=== PATIENT | female | born 1960 | race Two or more races ===

== ENCOUNTER 2022-03-24 17:00 | Inpatient (IN) | payer BC, OTHER ==
[~2022-03-24] VITALS: Ht 165.1 cm; Wt 88.3 kg
[2022-03-24 18:18] LABS: Basophils # (auto) 0.1 10 ^3/uL (0-0.2); Basophils % (auto) 0.9 % (0.0-2.0); Eosinophils # (auto) 0.1 10 ^3/uL (0-0.8); Eosinophils % (auto) 1.7 % (0.0-7.0); Hematocrit 44.5 % (36.0-46.0); Hemoglobin 14.8 g/dL (12.2-16.2); Lymphocytes # (auto) 1.9 10 ^3/uL (0.4-5.4); Lymphocytes % (auto) 26.2 % (10.0-50.0); Mean Corpuscular Hemoglobin 33.6 pg (28.0-32.0); Mean Corpuscular Hgb Conc. 33.4 g/dL (32.0-36.0); Mean Corpuscular Volume 100.6 fL (80.0-100.0); Monocytes # (auto) 0.7 10 ^3/uL (0-1.3); Monocytes % (auto) 10.5 % (0.0-12.0); Neutrophils # (auto) 4.3 10 ^3/uL (1.6-8.6); Neutrophils % (auto) 60.7 % (37.0-80.0); Nucleated Red Blood Cells % 0.1 %; Red Blood Cells 4.42 10^6/uL (4.0-5.20); Red Cell Distribution Width 14.4 % (11.8-14.3); White Blood Cell 7.1 10^3/uL (4.4-10.8)
[2022-03-24 18:31] LABS: Albumin 3.6 g/dL (3.4-5.0); Calcium 9.2 mg/dL (8.5-10.1); Potassium 3.7 mmol/L (3.5-5.1)
[2022-03-24 18:33] LABS: BUN/Creatinine Ratio 16.9
[2022-03-24 18:36] LABS: Bilirubin, Total 0.4 mg/dL (0.2-1.0); Total Protein 7.2 g/dL (6.4-8.2)
[2022-03-24 19:03] LABS: INR 6.8 (0.9-1.15)
[2022-03-24] MEDS ORDERED: phytonadione 10 MG in SODIUM CHL 0.9% 50 ML IV ONE (19:15)
[2022-03-24] MEDS ORDERED: ONDANSETRON HCL 4 MG/2 ML VIAL IV PRN (21:00)
[2022-03-24] MEDS ORDERED: ALBUTEROL SULF 2.5 MG/0.5ML(0.5%) NEB SOLN NEB PRN (21:00)
[2022-03-24] MEDS ORDERED: TEMAZEPAM 15 MG CAP PO PRN (21:00)
[2022-03-24 23:14] VITALS: BP 134/67
[2022-03-25] MEDS ORDERED: phytonadione 1 ML ONE (00:55)
[2022-03-25] MEDS: ACETAMINOPHEN 325 MG TAB PO PRN ×2 (01:06→09:20)
[2022-03-25 06:07] LABS: Basophils # (auto) 0.1 10 ^3/uL (0-0.2); Basophils % (auto) 1.1 % (0.0-2.0); Eosinophils # (auto) 0.2 10 ^3/uL (0-0.8); Eosinophils % (auto) 2.4 % (0.0-7.0); Hematocrit 46.2 % (36.0-46.0); Hemoglobin 15.1 g/dL (12.2-16.2); Lymphocytes # (auto) 2.8 10 ^3/uL (0.4-5.4); Lymphocytes % (auto) 34.7 % (10.0-50.0); Mean Corpuscular Hemoglobin 33.2 pg (28.0-32.0); Mean Corpuscular Hgb Conc. 32.8 g/dL (32.0-36.0); Mean Corpuscular Volume 101.1 fL (80.0-100.0); Monocytes % (auto) 12.6 % (0.0-12.0); Neutrophils # (auto) 3.9 10 ^3/uL (1.6-8.6); Neutrophils % (auto) 49.2 % (37.0-80.0); Nucleated Red Blood Cells % 0.1 %; Red Blood Cells 4.57 10^6/uL (4.0-5.20); Red Cell Distribution Width 14.4 % (11.8-14.3); White Blood Cell 7.9 10^3/uL (4.4-10.8)
[2022-03-25 06:24] LABS: INR 2.12 (0.9-1.15); Partial Thromboplastin Time 39.2 sec (24.6-33.4)
[2022-03-25 06:28] LABS: Calcium 9.2 mg/dL (8.5-10.1); Potassium 3.4 mmol/L (3.5-5.1)
[2022-03-25 06:29] LABS: BUN/Creatinine Ratio 19.6
[2022-03-25] MEDS ORDERED: HYDROcodone-ACET 5/325MG TAB PO PRN ×2 (06:30→07:15)
[2022-03-25] MEDS ORDERED: PANTOPRAZOLE 40 MG TAB PO SCH (10:00)
[2022-03-25] MEDS ORDERED: amLODIPine BESYLATE 5 MG TAB PO SCH (10:00)
[2022-03-25] MEDS ORDERED: HCTZ 25 MG TAB PO SCH (10:00)
[2022-03-25 11:41] VITALS: BP 135/72
== END 2022-03-25 13:03 | disposition home or self-care (01) | DRG 948 ==
LOC: EDBD 17:00 → ER 17:00 → OVERFLOW 20:55
PROVIDERS: ADMIT Nurse Practitioner; ATTEND Family Medicine
DX: R79.9 Abnormal finding of blood chemistry, unspecified (principal); T45.515A Adverse effect of anticoagulants, initial encounter; I10 Essential (primary) hypertension; Z86.711 Personal history of pulmonary embolism; Z79.01 Long term (current) use of anticoagulants; Y92.89 Other specified places as the place of occurrence of the external cause; Z20.822 Contact with and (suspected) exposure to COVID-19
CPT/HCPCS: 36415; 80048; 80053; 85025; 85610; 85730; 87426; G0378; J3430

== ENCOUNTER 2023-12-24 08:21 | Inpatient (IN) | payer BC ==
[~2023-12-24] VITALS: Ht 165.1 cm; Wt 95.9 kg
[2023-12-24 08:55] VITALS: PULSE 79; RESP 20; O2SAT 95
[2023-12-24] MEDS: KETOROLAC TROMETH 30 MG/ML 1ML VIAL IV ONE (10:35)
[2023-12-24] MEDS: SODIUM CHLORIDE 0.9% 500 ML IVB ONE (10:36)
[2023-12-24] MEDS: METOCLOPRAMIDE HCL 5MG/ml INJ 2ml VIAL IV ONE (10:36)
[2023-12-24 11:10] LABS: Basophils # (auto) 0.1 10 ^3/uL (0-0.2); Basophils % (auto) 1.2 % (0.0-2.0); Eosinophils # (auto) 0.2 10 ^3/uL (0-0.8); Eosinophils % (auto) 5.2 % (0.0-7.0); Hematocrit 42.2 % (36.0-46.0); Hemoglobin 14.1 g/dL (12.2-16.2); Lymphocytes # (auto) 0.8 10 ^3/uL (0.4-5.4); Lymphocytes % (auto) 17.8 % (10.0-50.0); Mean Corpuscular Hemoglobin 33.2 pg (28.0-32.0); Mean Corpuscular Hgb Conc. 33.4 g/dL (32.0-36.0); Mean Corpuscular Volume 99.6 fL (80.0-100.0); Monocytes # (auto) 0.4 10 ^3/uL (0-1.3); Monocytes % (auto) 9.2 % (0.0-12.0); Neutrophils # (auto) 3.1 10 ^3/uL (1.6-8.6); Neutrophils % (auto) 66.6 % (37.0-80.0); Nucleated Red Blood Cells % 0.1 %; Platelet Count (auto) 209 10^3/uL (140-450); Red Blood Cells 4.24 10^6/uL (4.0-5.20); White Blood Cell 4.7 10^3/uL (4.4-10.8)
[2023-12-24 11:18] LABS: Urine Bacteria None Seen /hpf (None Seen)
[2023-12-24] MEDS: SODIUM CHLORIDE 0.9% 1,000 ML IV ONE (11:20)
[2023-12-24 11:24] LABS: Alanine Aminotransferase 15 U/L (7-40); Albumin 4.1 g/dL (3.2-4.8); Alkaline Phosphatase 72 U/L (46-116); Anion Gap 6 (5-15); Aspartate Aminotransferase 16 U/L (13-40); BUN/Creatinine Ratio 10.2 (10.0-20.0); Bilirubin, Total 0.6 mg/dL (0.2-1.0); Blood Urea Nitrogen 11 mg/dL (9-23); Calcium 10.1 mg/dL (8.7-10.4); Carbon Dioxide 30 mmol/L (20-31); Chloride 103 mmol/L (98-107); Glucose 112 mg/dL (74-106); Magnesium 1.8 mg/dL (1.6-2.6); Potassium 3.6 mmol/L (3.5-5.1); Sodium 139 mmol/L (136-145); Total Protein 7.1 g/dL (5.7-8.2)
[2023-12-24 11:39] LABS: Urine Blood Negative /uL (Negative); Urine Clarity Clear (Clear); Urine Color Yellow (Yellow); Urine Hyaline Cast FEW /lpf (0 - 2); Urine Mucus FEW (None Seen); Urine Protein, UAD 1+ (Negative); Urine Specific Gravity 1.034 (1.001-1.035); Urine Urobilinogen Normal (Negative); Urine WBC 1 /hpf (0 - 5); Urine pH 5.5 (5.0-9.0)
[2023-12-24] MEDS ORDERED: DICL50TA2 PO (12:44)
[2023-12-24] MEDS ORDERED: METO-281 PO (12:44)
[2023-12-24] MEDS: methylPREDNISolone SOD SUCC 125 MG/2 ML VL IV ONE (13:23)
[2023-12-24] MEDS: ALBUTEROL SULF 2.5 MG/0.5ML(0.5%) NEB SOLN NEB ONE (13:28)
[2023-12-24] MEDS: IPRATROPIUM BROM 0.5 MG/2.5ML INH SOL NEB ONE (13:28)
[2023-12-24] MEDS ORDERED: NITROGLYCERIN 0.4 MG SL TAB SL PRN (15:15)
[2023-12-24] MEDS ORDERED: DOCUSATE SOD 100 MG CAP PO PRN (15:15)
[2023-12-24] MEDS ORDERED: MORPHINE SULFATE INJ 2 MG/ml SYRG IV PRN (15:15)
[2023-12-24] MEDS ORDERED: ACETAMINOPHEN 325 MG TAB PO PRN (15:15)
[2023-12-24] MEDS ORDERED: ONDANSETRON HCL 4 MG/2 ML VIAL IV PRN (15:15)
[2023-12-24] MEDS ORDERED: FLUO-470 PO (15:23)
[2023-12-24] MEDS ORDERED: ALBU108A5 INH (15:23)
[2023-12-24] MEDS ORDERED: HYDR25TA5 PO (15:23)
[2023-12-24] MEDS ORDERED: RIVA10TA2 PO (15:23)
[2023-12-24] MEDS ORDERED: AMLO1TAB22 PO (15:23)
[2023-12-24] MEDS ORDERED: QUET300T24 PO ×3 (15:23→16:14)
[2023-12-24 15:25] VITALS: BP 123/74; PULSE 81; RESP 20; TEMP 97.7; O2SAT 91
[2023-12-24 18:06] VITALS: BP 138/58; PULSE 96; RESP 19; TEMP 98.2; O2SAT 87
[2023-12-24] MEDS ORDERED: FLUT110A8 IN (18:11)
[2023-12-24 20:00] VITALS: PULSE 95; RESP 18; O2SAT 96
[2023-12-24 21:00] VITALS: BP 126/72; PULSE 95; RESP 18; TEMP 98.1; O2SAT 96
[2023-12-24] MEDS: QUEtiapine FUMARATE 100 MG TAB PO SCH (21:55)
[2023-12-24] MEDS: methylPREDNISolone SOD SUCC 40 MG/ML VL IV SCH (22:00)
[2023-12-24] MEDS ORDERED: QUEtiapine FUMARATE 100 MG TAB PO ONE (22:00)
[2023-12-24] MEDS: HYDROcodone-ACET 5/325MG TAB PO PRN (22:01)
[2023-12-24] MEDS: SODIUM CHLOR 0.9% PF (SALINE LOCK) 10ML VIAL/SYR IV SCH (22:01)
[2023-12-24 22:48] VITALS: O2SAT 98
[2023-12-25] VITALS (11 sets, daily range): BP systolic 118–136; BP diastolic 63–77; PULSE 87–105; RESP 17–20; TEMP 97.8–98.4; O2SAT 88–98
[2023-12-25 06:02] LABS: Basophils # (auto) 0 10 ^3/uL (0-0.2); Basophils % (auto) 0.1 % (0.0-2.0); Eosinophils # (auto) 0 10 ^3/uL (0-0.8); Hematocrit 41.5 % (36.0-46.0); Hemoglobin 13.8 g/dL (12.2-16.2); Lymphocytes # (auto) 0.4 10 ^3/uL (0.4-5.4); Lymphocytes % (auto) 6.3 % (10.0-50.0); Mean Corpuscular Hemoglobin 33.1 pg (28.0-32.0); Mean Corpuscular Hgb Conc. 33.2 g/dL (32.0-36.0); Mean Corpuscular Volume 99.6 fL (80.0-100.0); Monocytes # (auto) 0.1 10 ^3/uL (0-1.3); Monocytes % (auto) 1.1 % (0.0-12.0); Neutrophils # (auto) 5.4 10 ^3/uL (1.6-8.6); Neutrophils % (auto) 92.5 % (37.0-80.0); Nucleated Red Blood Cells % 0.1 %; Platelet Count (auto) 206 10^3/uL (140-450); Red Blood Cells 4.17 10^6/uL (4.0-5.20); Red Cell Distribution Width 13.6 % (11.8-14.3); White Blood Cell 5.9 10^3/uL (4.4-10.8)
[2023-12-25] MEDS: FLUoxetine HCL 20 MG CAP PO SCH (06:06)
[2023-12-25 06:25] LABS: Alanine Aminotransferase 11 U/L (7-40); Alkaline Phosphatase 67 U/L (46-116); Anion Gap 7 (5-15); Aspartate Aminotransferase 11 U/L (13-40); BUN/Creatinine Ratio 18.6 (10.0-20.0); Bilirubin, Total 0.5 mg/dL (0.2-1.0); Blood Urea Nitrogen 19 mg/dL (9-23); Calcium 9.7 mg/dL (8.7-10.4); Carbon Dioxide 28 mmol/L (20-31); Chloride 104 mmol/L (98-107); Glucose 143 mg/dL (74-106); Potassium 4.1 mmol/L (3.5-5.1); Sodium 139 mmol/L (136-145); Total Protein 6.8 g/dL (5.7-8.2)
[2023-12-25] MEDS: QUEtiapine FUMARATE 100 MG TAB PO SCH (10:00)
[2023-12-25] MEDS: hydroCHLOROthiazide 25 MG TAB PO SCH (10:17)
[2023-12-25] MEDS: amLODIPine BESYLATE 5 MG TAB PO SCH (10:17)
[2023-12-25] MEDS: FAMOTIDINE 20 MG TAB PO ONE (16:11)
[2023-12-25] MEDS: ALBUTEROL SULF 2.5 MG/0.5ML(0.5%) NEB SOLN NEB PRN (20:26)
[2023-12-25] MEDS: IPRATROPIUM BROM 0.5 MG/2.5ML INH SOL NEB PRN (20:26)
[2023-12-25] MEDS: MONTELUKAST SODIUM 10 MG TAB PO SCH (21:12)
[2023-12-25] MEDS: ENOXAPARIN SOD 100 MG/1 ML SYRINGE SC SCH (21:14)
[2023-12-26] VITALS (9 sets, daily range): BP systolic 122–137; BP diastolic 66–84; PULSE 88–101; RESP 16–20; TEMP 97.8–98.2; O2SAT 90–100
[2023-12-26] MEDS: predniSONE 20 MG TAB PO SCH (09:51)
[2023-12-26] MEDS: FAMOTIDINE 20 MG TAB PO SCH (09:51)
[2023-12-26] MEDS ORDERED: MONT10TA23 PO (13:13)
[2023-12-26] MEDS ORDERED: FLUT50SP (13:13)
[2023-12-26] MEDS ORDERED: PRED20TA2 PO (13:13)
[2023-12-26] MEDS ORDERED: FAMO-12 PO (13:13)
[2023-12-26] MEDS ORDERED: MOME1AER8 INH (13:13)
== END 2023-12-26 16:10 | disposition home or self-care (01) | DRG 202 ==
LOC: ER 08:21 → OVERFLOW 15:14 → EAST 17:47
PROVIDERS: ADMIT Nurse Practitioner Family; ATTEND Student in an Organized Health Care Education/Training Program
DX: J45.41 Moderate persistent asthma with (acute) exacerbation (principal); N17.9 Acute kidney failure, unspecified; F32.A Depression, unspecified; I10 Essential (primary) hypertension; K21.9 Gastro-esophageal reflux disease without esophagitis; G43.909 Migraine, unspecified, not intractable, without status migrainosus; I95.9 Hypotension, unspecified; Z86.711 Personal history of pulmonary embolism; Z79.899 Other long term (current) drug therapy
CPT/HCPCS: 36415; 70450; 71046; 80053; 81001; 83735; 85025; 93005; 94640; G0378; J1885

== ENCOUNTER 2024-01-24 14:40 | Inpatient (IN) | payer BC, MEDICARE ==
[~2024-01-24] VITALS: Ht 165.1 cm; Wt 91.5 kg
[2024-01-24] VITALS (7 sets, daily range): BP systolic 111–117; BP diastolic 68–75; PULSE 85–95; RESP 14–23; O2SAT 90–100
[~2024-01-24 14:40] MED LIST: AMLO1TAB22 PO; FAMO-12 PO; FLUT50SP; HYDR25TA5 PO; MOME1AER8 INH; MONT10TA23 PO; PRED20TA2 PO; QUET300T24 PO
--- NOTE | 2024-01-24 14:58 | ED.PDOC ---
SOB-HPI HPI Comments 64-year-old female with PMHx Asthma brought in by EMS presents with a chief complaint of SOB. Patient was sating at 87% on room air and was placed on 20L via non-rebreather by EMS. Patient denies any wheezing, coughing, or hemoptysis. Patient is able to speak in full, complete sentences. Patient denies chest pain, nausea, vomiting, diarrhea, or headache. No other symptoms or modifying factors present at this time. 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 Family History Family History: Reviewed,noncontributory to illness, Unknown Social History Smoker: Non-Smoker Alcohol: Denies ETOH Use Drugs: Denies Drug Use Lives In: Home Constitutional: denies: chills, diaphoresis, fatigue, fever, malaise, sweats, weakness, others EENTM: denies: blurred vision, double vision, ear bleeding, ear discharge, ear drainage, ear pain, ear ringing, eye pain, eye redness, hearing loss, mouth pain, mouth swelling, nasal discharge, nose bleeding, nose congestion, nose pain, photophobia, tearing, throat pain, throat swelling, voice changes, others Respiratory: reports: SOB at rest, shortness of breath; denies: cough, hemoptysis, orthopnea, SOB with excertion, stridor, wheezing, others Cardiovascular: denies: chest pain, dizzy spells, diaphoresis, Dyspnea on exertion, edema, irregular heart beat, left arm pain, lightheadedness, palpitations, PND, syncope, others Gastrointestinal: denies: abdomen distended, abdominal pain, blood streaked bowels, constipated, diarrhea, dysphagia, difficulty swallowing, hematemesis, melena, nausea, poor appetite, poor fluid intake, rectal bleeding, rectal pain, vomiting, others Genitourinary: denies: abnormal vagina bleeding, burning, dyspareunia, dysuria, flank pain, frequency, hematuria, incontinence, pain, , vagina discharge, urgency, others Neurological: denies: dizziness, fainting, headache, left sided numbness, left sided weakness, numbness, paresthesia, pre-existing deficit, right sided numbness, right sided weakness, seizure, speech problems, tingling, tremors, weakness, others Musculoskeletal: denies: back pain, gout, joint pain, joint swelling, muscle pain, muscle stiffness, neck pain, others Integumetry: denies: bruises, change in color, change in hair/nails, dryness, laceration, lesions, lumps, rash, wounds, others Allergic/Immunocompromised: denies: Difficulty Healing, Frequent Infections, H tanika, Itching, others Hematologic/Lymphatic: denies: anemia, blood clots, easy bleeding, easy bruising, swollen glands, others Endocrine: denies: excessive hunger, excessive sweating, excessive thirst, excessive urination, flushing, intolerance to cold, intolerance to heat, unexplained weight gain, unexplained weight loss, others Psychiatric: denies: anxiety, bipolar disorder, depression, hopeless, panic disorder, schizophrenia, sleepless, suicidal, others All Other Systems: Reviewed and Negative Physical Exam General Appearance: No Apparent Distress, Normal HEENT: Normal ENT Inspection, Pharynx Normal, TMs Normal Neck: Full Range of Motion, Non-Tender, Normal, Normal Inspection Respiratory: Chest Non-Tender, Lungs Clear, No Accessory Muscle Use, No Respiratory Distress, Normal Breath Sounds Cardiovascular: No Edema, No JVD, No Murmur, No Gallop, Normal Peripheral Pulses, Regular Rate/Rhythm Breast Exam: Deferred Gastrointestinal: No Organomegaly, Non Tender, No Pulsatile Mass, Normal Bowel Sounds, Soft Genitalia: Deferred Pelvic: Deferred Rectal: Deferred Extremities: No calf tenderness, Normal capillary refill, Normal inspection, Normal range of motion, Non-tender, No pedal edema Musculoskeletal : Apperance: Normal Neurologic: Alert, chair mender II-XII nml as Tested, No Motor Deficits, Normal Affect, Normal Mood, No Sensory Deficits Cerebellar Function: Normal Reflexes: Normal Skin: Dry, Normal Color, Warm Lymphatic: No Adenopathy Was a procedure done? Was a procedure done?: No Differential Dx Differential Diagnosis: CHF, COPD, Hypertension, Pneumonia, Pulmonary Embolism, URI X-Ray, Labs, Meds, VS Vital Signs Date Time Temp Pulse Resp B/P (MAP) Pulse Ox O2 Delivery O2 Flow Rate FiO2 01/24/24 16:59 95 18 125/79 (94) 98 01/24/24 16:00 94 01/24/24 15:31 30 98 Bi-Pap+ 100 100 01/24/24 15:06 18 100 Bi-Pap+ 100 100 01/24/24 15:05 99 Bi-Pap+ 100 100 01/24/24 14:55 97.7 102 22 118/75 (89) 99 97.7 01/24/24 14:53 98 01/24/24 14:50 104 118/75 Facial BiPAP Mask 100 Lab Test 01/24/24 16:40 01/24/24 16:21 01/24/24 15:25 Range/Units Troponin I High Sensitivity Pending 433 *H </=34 ng/L Blood Gas Specimen Type Venous Blood Gas Sample Site Vbg - n/a Blood Gas Patient Temperature 37.0 Arterial Blood Date Drawn [id number] Ashish Test N/a Venous Blood pH 7.359 7.320-7.430 Venous Blood pCO2 at Patient Temp 47.9 38.0-54.0 mmHg Venous Blood pO2 at Patient Temp 54.8 H 23.0-48.0 mmHg Venous Blood HCO3 26.4 22.0-29.0 mmol/L Venous Blood Base Excess 0.3 -2.0-3.0 mmol/L Blood Gas Set Respiration Rate 12.0 Blood Gas Modality Mask - bipap FiO2 % 100.0 Blood Gas Pressure Support 7 Blood Gas EPAP 5 Blood Gas IPAP 12 White Blood Count 5.8 4.4-10.8 10^3/uL Red Blood Count 4.30 4.0-5.20 10^6/uL Hemoglobin 14.5 12.2-16.2 g/dL Hematocrit 43.7 36.0-46.0 % Mean Corpuscular Volume 101.7 H 80.0-100.0 fL Mean Corpuscular Hemoglobin 33.8 H 28.0-32.0 pg Mean Corpuscular Hemoglobin Concent 33.2 32.0-36.0 g/dL Red Cell Distribution Width 15.1 H 11.8-14.3 % Platelet Count 245 140-450 10^3/uL Mean Platelet Volume 8.4 6.9-10.8 fL Neutrophils (%) (Auto) 73.0 37.0-80.0 % Lymphocytes (%) (Auto) 16.2 10.0-50.0 % Monocytes (%) (Auto) 9.8 0.0-12.0 % Eosinophils (%) (Auto) 0.4 0.0-7.0 % Basophils (%) (Auto) 0.6 0.0-2.0 % Neutrophils # (Auto) 4.3 1.6-8.6 10 ^3/uL Lymphocytes # (Auto) 0.9 0.4-5.4 10 ^3/uL Monocytes # (Auto) 0.6 0-1.3 10 ^3/uL Eosinophils # (Auto) 0 0-0.8 10 ^3/uL Basophils # (Auto) 0 0-0.2 10 ^3/uL Nucleated Red Blood Cells 1.2 % Sodium Level 142 136-145 mmol/L Potassium Level 3.7 3.5-5.1 mmol/L Chloride Level 106 98-107 mmol/L Carbon Dioxide Level 26 20-31 mmol/L Anion Gap 10 5-15 Blood Urea Nitrogen 29 H 9-23 mg/dL Creatinine 1.80 H 0.550-1.02 mg/dL Glomerular Filtration Rate Calc 31 >90 mL/min BUN/Creatinine Ratio 16.1 10.0-20.0 Serum Glucose 153 H 74-106 mg/dL Calcium Level 9.5 8.7-10.4 mg/dL B-Type Natriuretic Peptide 988.20 0-100 pg/mL Current Medications Medications (Trade) Dose Ordered Sig/Kat Route Start Time Stop Time Status Last Admin Albuterol (Ventolin Medneb) 5 mg ONCE ONCE NEB 01/24/24 15:15 01/24/24 15:16 DC 01/24/24 15:30 Ipratropium [place] (Atrovent Medneb) 0.5 mg ONCE ONCE NEB 01/24/24 15:15 01/24/24 15:16 DC 01/24/24 15:31 Time of 1ST Reevaluation: 15:12 Reevaluation 1ST: Unchanged Patient Education/Counseling: Diagnosis, Treatment, Prognosis Family Education/Counseling: No Family Present Departure 1 Departure Time of Disposition: 17:15 (Patient presented with acute shortness of breath concerning for acute on chronic COPD Exacerbation, Pneumonia, ACS, CHF, Pneumothorax. Less likely PE, Dissection. Data: 1. I ordered and reviewed the result of at least 3 labs including a CBC, BMP, and Troponin. 2. I independently interpreted the following tests: Chest X-ray shows .Risk:This patient has a high risk of morbidity due to further diagnostic testing or treatment and may suffer from respiratory or cardiac etiology . Workup reveals a likely COPD Exacerbation and patient should be admitted for further workup. and possible expert consultation.) Impression: Primary Impression: Acute hypoxic respiratory failure Additional Impressions: COPD (chronic obstructive pulmonary disease) Qualified Codes: J44.1 - Chronic obstructive pulmonary disease with (acute) exacerbation Cough Qualified Codes: R05.1 - Acute cough Disposition: 09 ADMITTED INPATIENT Admit to: [facility] Condition: Guarded Critical Care Note Critical Care Time?: Yes Critical care comment: Acute hypoxic respiratory failure Authorized and Performed by: Tobi Ramsay MD Total critical care time: Approximately 33 minutes Due to a high probability of clinically significant, life threatening deterioration, the patient required my highest level of preparedness to intervene emergently and I personally spent this critical care time directly and personally managing the patient. This critical care time included obtaining a history; examining the patient; pulse oximetry; ordering and review of studies; arranging urgent treatment with development of a management plan; evaluation of patient's response to treatment; frequent reassessment; and, discussions with other providers. This critical care time was performed to assess and manage the high probability of imminent, life-threatening deterioration that could result in multi-organ failure. It was exclusive of separately billable procedures and treating other patients and teaching time. Please see my other sections and the rest of the note for further information on patient assessment and treatment. Stability Stability form required: No Heart Score Heart Score: Heart Score Response (Comments) Value History Slightly Suspicious 0 EKG Normal 0 Age >65 2 Risk Factors >3 or Hx ASHD 2 Troponin >3 x's Normal limit 2 Total 6 I personally scribed for TOBI RAMSAY MD ([email or web address]) on 01/24/24 at 14:58. Electronically submitted by Giuliano Machuca [email or web address]). TOBI RAMSAY MD Jan 24, 2024 14:58
--- NOTE | 2024-01-24 15:21 | DVH ---
CHEST RADIOGRAPH Indication: sob Technique: Single frontal view of the chest was obtained Comparison: None FINDINGS: Lines and Tubes: None Lungs: No focal consolidation. Prominent bilateral rasta. Hyperinflation of the lungs. Pleura: No effusion. No pneumothorax. Cardiomediastinal contours: Unremarkable Bones: No acute osseous abnormality. IMPRESSION: 1. Prominent bilateral rasta may be related to pulmonary vascular congestion or atypical infection. Hy perinflation of the lungs. HS:Y
[2024-01-24] MEDS: ALBUTEROL SULF 2.5 MG/0.5ML(0.5%) NEB SOLN NEB ONE (15:30)
[2024-01-24] MEDS: IPRATROPIUM BROM 0.5 MG/2.5ML INH SOL NEB ONE (15:31)
[2024-01-24 15:57] LABS: Basophils # (auto) 0 10 ^3/uL (0-0.2); Basophils % (auto) 0.6 % (0.0-2.0); Eosinophils # (auto) 0 10 ^3/uL (0-0.8); Monocytes # (auto) 0.6 10 ^3/uL (0-1.3); Neutrophils # (auto) 4.3 10 ^3/uL (1.6-8.6); White Blood Cell 5.8 10^3/uL (4.4-10.8)
[2024-01-24 15:59] LABS: Eosinophils % (auto) 0.4 % (0.0-7.0); Hematocrit 43.7 % (36.0-46.0); Hemoglobin 14.5 g/dL (12.2-16.2); Lymphocytes # (auto) 0.9 10 ^3/uL (0.4-5.4); Lymphocytes % (auto) 16.2 % (10.0-50.0); Mean Corpuscular Hemoglobin 33.8 pg (28.0-32.0); Mean Corpuscular Hgb Conc. 33.2 g/dL (32.0-36.0); Mean Corpuscular Volume 101.7 fL (80.0-100.0); Monocytes % (auto) 9.8 % (0.0-12.0); Nucleated Red Blood Cells % 1.2 %; Platelet Count (auto) 245 10^3/uL (140-450); Red Cell Distribution Width 15.1 % (11.8-14.3)
[2024-01-24 16:06] LABS: Chloride 106 mmol/L (98-107); Potassium 3.7 mmol/L (3.5-5.1); Sodium 142 mmol/L (136-145)
[2024-01-24 16:07] LABS: Anion Gap 10 (5-15); Carbon Dioxide 26 mmol/L (20-31)
[2024-01-24 16:08] LABS: Calcium 9.5 mg/dL (8.7-10.4)
[2024-01-24 16:12] LABS: Glucose 153 mg/dL (74-106)
[2024-01-24 16:13] LABS: BUN/Creatinine Ratio 16.1 (10.0-20.0); Blood Urea Nitrogen 29 mg/dL (9-23)
--- NOTE | 2024-01-24 17:40 | DVHHP2 ---
History of Present Illness Reason for Visit: Shortness of breath History of Present Illness Maryam Tilley is a 64YO F with pmHx of Asthma and HTN who presents to the ED for shortness of breath. Patient was placed on NRB for sats in the high 80s then placed on NRB for increased WOB. Patient reports she was camping 5 days ago and her shortness of breath occurred before the camping trip in [facility]. Patient's reports that he found her face down on the floor but was conscious. Patient reports she is frequently in and out of the hospital for her asthma. Patient reports she does not use oxygen at home. She is compliant with her medications. Family at the bedside. Patient report her breathing is better. Patient denies chest pain, fever, chills, abdominal pain, and weakness. Cardiovascular: HTN Pulmonary: Asthma Past Surgical History: Family History: None Smoke: No ALCOHOL: none Drugs: None Lives: with Family Domestic Violence: Neg Review of Systems Constitutional: No: Fever, Chills, Sweats, Weakness, Malaise, Other Eyes: No: Pain, Vision change, Conjunctivae inflammation, Eyelid inflammation, Other, Redness ENT: No: Ear pain, Ear discharge, Nose pain, Nose discharge, Nose congestion, Mouth pain, Mouth swelling, Throat pain, Throat swelling, Other Respiratory: Shortness of breath; No: Cough, Dry, SOB with excertion, Wheezing, Hemoptysis, Pleuritic Pain, Sputum, Wheezing, Other Cardiovascular: Other (chest tightness); No: Chest Pain, Palpitations, Orthopnea, Paroxysmal Noc. Dyspnea, Edema, Lt Headedness Gastrointestinal: No: Nausea, Vomiting, Abdominal Pain, Diarrhea, Constipation, Melena, Hematochezia, Other Genitourinary: No Dysuria, No Frequency, No Incontinence, No Hematuria, No Retention, No Other Musculoskeletal: No: other, neck pain, shoulder pain, arm pain, back pain, hand pain, leg pain, foot pain Skin: No: Rash, Lesions, Jaundice, Bruising, Other Neurological: No: Weakness, Numbness, Incoordination, Change in speech, Confusion, Seizures, Other Allergies: Coded Allergies: NO KNOWN ALLERGIES (Unverified , 03/24/22) Exam Vital Signs Vital Signs Date Time Temp Pulse Resp B/P (MAP) Pulse Ox O2 Delivery O2 Flow Rate FiO2 01/24/24 16:59 95 18 125/79 (94) 98 01/24/24 15:31 Bi-Pap+ 100 100 01/24/24 14:55 97.7 97.7 General Appearance: Alert, Oriented X3, Cooperative, moderate distress HEENT: Atraumatic, PERRLA, EOMI, Mucous membr. moist/pink Respiratory: Other (Diminished BS) Cardiovascular: Regular rate, Normal S1, Normal S2, No murmurs Abdominal: Normal bowel sounds, Soft, No tenderness, No hepatospenomegaly, No masses Extremities: No clubbing, No cyanosis, No edema, Normal pulses, No tenderness/swelling Skin: No rashes, No breakdown, No significant lesion Neuro: Normal gait, Normal speech, Strength at 5/5 X4 ext, Normal tone, Sensation intact Psych/Mental Status: Mental status NL, Mood NL Labs/Xrays Labs Test 01/24/24 16:40 01/24/24 16:21 01/24/24 15:25 Range/Units Troponin I High Sensitivity 464 *H </=34 ng/L Blood Gas Specimen Type Venous Blood Gas Sample Site Vbg - n/a Blood Gas Patient Temperature 37.0 Arterial Blood Date Drawn [id number] Ashish Test N/a Venous Blood pH 7.359 7.320-7.430 Venous Blood pCO2 at Patient Temp 47.9 38.0-54.0 mmHg Venous Blood pO2 at Patient Temp 54.8 H 23.0-48.0 mmHg Venous Blood HCO3 26.4 22.0-29.0 mmol/L Venous Blood Base Excess 0.3 -2.0-3.0 mmol/L Blood Gas Set Respiration Rate 12.0 Blood Gas Modality Mask - bipap FiO2 % 100.0 Blood Gas Pressure Support 7 Blood Gas EPAP 5 Blood Gas IPAP 12 White Blood Count 5.8 4.4-10.8 10^3/uL Red Blood Count 4.30 4.0-5.20 10^6/uL Hemoglobin 14.5 12.2-16.2 g/dL Hematocrit 43.7 36.0-46.0 % Mean Corpuscular Volume 101.7 H 80.0-100.0 fL Mean Corpuscular Hemoglobin 33.8 H 28.0-32.0 pg Mean Corpuscular Hemoglobin Concent 33.2 32.0-36.0 g/dL Red Cell Distribution Width 15.1 H 11.8-14.3 % Platelet Count 245 140-450 10^3/uL Mean Platelet Volume 8.4 6.9-10.8 fL Neutrophils (%) (Auto) 73.0 37.0-80.0 % Lymphocytes (%) (Auto) 16.2 10.0-50.0 % Monocytes (%) (Auto) 9.8 0.0-12.0 % Eosinophils (%) (Auto) 0.4 0.0-7.0 % Basophils (%) (Auto) 0.6 0.0-2.0 % Neutrophils # (Auto) 4.3 1.6-8.6 10 ^3/uL Lymphocytes # (Auto) 0.9 0.4-5.4 10 ^3/uL Monocytes # (Auto) 0.6 0-1.3 10 ^3/uL Eosinophils # (Auto) 0 0-0.8 10 ^3/uL Basophils # (Auto) 0 0-0.2 10 ^3/uL Nucleated Red Blood Cells 1.2 % Sodium Level 142 136-145 mmol/L Potassium Level 3.7 3.5-5.1 mmol/L Chloride Level 106 98-107 mmol/L Carbon Dioxide Level 26 20-31 mmol/L Anion Gap 10 5-15 Blood Urea Nitrogen 29 H 9-23 mg/dL Creatinine 1.80 H 0.550-1.02 mg/dL Glomerular Filtration Rate Calc 31 >90 mL/min BUN/Creatinine Ratio 16.1 10.0-20.0 Serum Glucose 153 H 74-106 mg/dL Calcium Level 9.5 8.7-10.4 mg/dL B-Type Natriuretic Peptide 988.20 0-100 pg/mL CHEST RADIOGRAPH Indication: sob FINDINGS: Lines and Tubes: None Lungs: No focal consolidation. Prominent bilateral rasta. Hyperinflation of the lungs. Pleura: No effusion. No pneumothorax. Cardiomediastinal contours: Unremarkable Bones: No acute osseous abnormality. IMPRESSION: 1. Prominent bilateral rasta may be related to pulmonary vascular congestion or atypical infection. Hyperinflation of the lungs. Assessment/Plan Assessment/Plan Assessment: Acute hypoxic respiratory failure 2nd to PNA Acute on chronic kidney disease Hx: Asthma HTN preDM PE 2013 Plan: Admit to [facility] Cardiology consulted - Dr. Alhejily aware Bipap Resp txs IV Abx IVf IV steroids Pain management Trend troponin's CXR noted ECHO CT Head Home medications reconciled Discussed plan of care with patient, patient's family and nurse Plan discussed with: Patient Problem List: (1) Acute hypoxic respiratory failure (2) Elevated troponin (3) Asthma exacerbation Date of Service: Jan 24, 2024 Billing Provider: MICHAELLE SANCHEZ Common Visit Codes: 48987-[id number] INP/OBS CARE (MOD) MICHAELLE SANCHEZ Jan 24, 2024 17:40
[2024-01-24] MEDS ORDERED: ASPirin 325 MG TAB PO SCH (18:15)
[2024-01-24] MEDS ORDERED: DEXTROSE (50%) 50ML SYRG IV PRN (18:15)
[2024-01-24] MEDS ORDERED: NITROGLYCERIN 0.4 MG SL TAB SL PRN ×2 (18:15)
[2024-01-24] MEDS ORDERED: MORPHINE SULFATE INJ 2 MG/ml SYRG IV PRN (18:15)
[2024-01-24] MEDS ORDERED: ONDANSETRON HCL 4 MG/2 ML VIAL IV PRN (18:15)
[2024-01-24] MEDS ORDERED: MORPHINE SULFATE 4 MG/ML SYR/VIAL IV PRN (18:15)
[2024-01-24] MEDS: cefTRIAXone 1GM/50ML D5W 50 ML IV ONE (19:06)
[2024-01-24] MEDS: AZITHROMYCIN 500MG/ 250ML 250 ML IV ONE (19:27)
[2024-01-24] MEDS: InsuLIN REG 1unit/0.01ml Soln (100units/ml) SC SCH (20:00)
[2024-01-24] MEDS: ACCU-CHEK COMFORT CURVE STRIP VI SCH (20:20)
--- NOTE | 2024-01-24 20:31 | DVH ---
EXAM: CT HEAD WITHOUT CONTRAST INDICATION: R/O head trauma TECHNIQUE: CT of the head without intravenous contrast. Radiation Dose Information: CT Dose: CTDI volume is 64.38 mGy. Dose-length product is 1268.55 mGy*cm The dose indicators for CT are the volume Computed Tomography (CT) Dose Index (CTDIvol) and the Dose Length Product (DLP), and are measured in units of mGy and mGy-cm, respectively. These indicators are not patient dose, but values generated from the CT scanner acquisition factors. The report includes radiation exposure data for exposures received during this examination. COMPARISON: CT HEAD WITHOUT CONTRAST on DOS: 12/24/23 FINDINGS: There is no evidence of acute intracranial hemorrhage, extra-axial collection, mass effect, midline s hift, herniation or hydrocephalus. Bilateral idiopathic basal ganglion calcifications. These appear u nchanged from 12/24/2023 The ventricles, sulci and cisterns are age appropriate. The guillory-white differentiation is intact. Patchy periventricular and subcortical white matter hypoattenuation is nonspecific but may be related to small vessel ischemic disease. The visualized paranasal sinuses and mastoid air cells are clear. The surrounding soft tissues and osseous structures are unremarkable. IMPRESSION: 1. No acute intracranial hemorrhage. 2. No CT findings of territorial ischemia. 3. No CT findings of displaced skull fracture.
[2024-01-24] MEDS: ATORVASTATIN 20 MG TAB PO SCH (22:18)
[2024-01-24] MEDS: methylPREDNISolone SOD SUCC 40 MG/ML VL IV SCH (22:18)
[2024-01-24] MEDS: ALBUTEROL SULF 2.5 MG/0.5ML(0.5%) NEB SOLN NEB SCH (22:23)
[2024-01-25] VITALS (17 sets, daily range): BP systolic 100–130; BP diastolic 51–78; PULSE 85–103; RESP 12–20; TEMP 98.3–98.5; O2SAT 90–98
[2024-01-25 04:16] LABS: Basophils # (auto) 0 10 ^3/uL (0-0.2); Basophils % (auto) 0.2 % (0.0-2.0); Eosinophils # (auto) 0 10 ^3/uL (0-0.8); Eosinophils % (auto) 0.1 % (0.0-7.0); Hematocrit 42.8 % (36.0-46.0); Hemoglobin 14.7 g/dL (12.2-16.2); Lymphocytes # (auto) 0.4 10 ^3/uL (0.4-5.4); Lymphocytes % (auto) 6.6 % (10.0-50.0); Mean Corpuscular Hemoglobin 34.4 pg (28.0-32.0); Mean Corpuscular Hgb Conc. 34.2 g/dL (32.0-36.0); Mean Corpuscular Volume 100.5 fL (80.0-100.0); Monocytes # (auto) 0.1 10 ^3/uL (0-1.3); Monocytes % (auto) 2.4 % (0.0-12.0); Neutrophils % (auto) 90.7 % (37.0-80.0); Nucleated Red Blood Cells % 0.6 %; Platelet Count (auto) 210 10^3/uL (140-450); Red Blood Cells 4.26 10^6/uL (4.0-5.20); Red Cell Distribution Width 14.9 % (11.8-14.3); White Blood Cell 5.5 10^3/uL (4.4-10.8)
[2024-01-25 04:40] LABS: Alanine Aminotransferase 22 U/L (7-40); Albumin 3.9 g/dL (3.2-4.8); Alkaline Phosphatase 73 U/L (46-116); Anion Gap 9 (5-15); Aspartate Aminotransferase 20 U/L (13-40); BUN/Creatinine Ratio 18.9 (10.0-20.0); Bilirubin, Total 0.5 mg/dL (0.2-1.0); Blood Urea Nitrogen 24 mg/dL (9-23); Calcium 9.8 mg/dL (8.7-10.4); Carbon Dioxide 27 mmol/L (20-31); Chloride 104 mmol/L (98-107); Glucose 145 mg/dL (74-106); Magnesium 1.8 mg/dL (1.6-2.6); Potassium 3.9 mmol/L (3.5-5.1); Sodium 140 mmol/L (136-145)
[2024-01-25 04:41] LABS: Total Protein 6.1 g/dL (5.7-8.2)
[2024-01-25 06:39] LABS: Base Excess 3.3 mmol/L (-2.0-3.0)
[2024-01-25] MEDS: IOHEXOL 350 MG/ML 100ML IJ ONE (08:40)
[2024-01-25] MEDS: MAGNESIUM SULFATE 1GM/100ML 100 ML IV ONE (08:49)
[2024-01-25 08:53] LABS: LDL Cholesterol 95 mg/dL (< 100); Triglycerides 96 mg/dL (< 150)
[2024-01-25 08:55] LABS: Cholesterol 195 mg/dL (< 200); HDL Cholesterol 80 mg/dL (40-59)
--- NOTE | 2024-01-25 08:56 | DVHINCON2 ---
Date Seen: Jan 25, 2024 Referring Physician LOBO Yancey Reason for Consultation NSTEMI History of Present Illness This is a pleasant 64-year-old female who presented to the emergency room via EMS with a chief complaint of shortness of breath for two days. The patient complains of progressive shortness of breath associated with a productive cough with yellowish sputum and chest pain described as substernal, sharp in nature, and worse with cough. She was found with oxygen saturation levels of 87% on room air for which she was placed on supplemental oxygenation. Upon arrival to the emergency room, the patient was on a non-rebreather mask at 15 liters/minute. At time of assessment, she was found on a BiPAP machine at 70%. Troponin levels are trending with latest in the 600s ng/L. A 12-lead iwona ctrocardiogram revealed a sinus rhythm with anteroseptal/inferior ST changes as well as S1T3 pattern. Of note, reports a history of pulmonary emboli diagnosed in 2008 and on Xarelto therapy. Reports she ran out of Xarelto approximately a month ago. Other medical history includes hypertension, severe asthma, depression, and remote history of tobacco use. Past Medical History Past medical history reviewed. No other significant than mentioned above. Past Surgical History Family History: Patient reports no known family medical history. Family History Family history reviewed. Social History Denies the use of illicit drugs, alcohol, or tobacco use. Reports a remote history of tobacco use, quit over 30 years ago. Allergies: Coded Allergies: NO KNOWN ALLERGIES (Unverified , 03/24/22) Home Meds Active Scripts Mometasone Furoate-Formoterol (Dulera) 1 Aer Aer, 2 PUFF INH BID, #13 GRAMS 2 Refills Prov:CHELLY GUERRERO MD 12/26/23 Fluticasone Propionate (Nasal) (Fluticasone Propionate) 50 Mcg/Act Spr, 50 MCG NA BID for 30 Days, #2 SPR Prov:CHELLY GUERRERO MD 12/26/23 Prednisone (Prednisone) 20 Mg Tab, 40 MG PO DAILY for 13 Days, #26 TAB Take 2 pills once daily for 5 days in case of exacerbation Prov:CHELLY GUERRERO MD 12/26/23 Montelukast Sodium (Singulair) 10 Mg Tab, 10 MG PO HS for 30 Days, #30 TAB 1 Refill Prov:CHELLY GUERRERO MD 12/26/23 Famotidine (Famotidine) 20 Mg Tab, 20 MG PO DAILY for 30 Days, #30 TAB 1 Refill Prov:CHELLY GUERRERO MD 12/26/23 Reported Medications Quetiapine Fumerate (QUETIAPINE FUMARATE) 300 Mg Tab, 600 MG PO HS, TAB 12/24/23 Amlodipine Besylate (Amlodipine Besylate) 5 Mg Tab, 1 TAB PO DAILY 12/24/23 Hctz (Hydrochlorothiazide) 25 Mg Tab, 1 TAB PO DAILY 12/24/23 Home Meds Home medications reviewed. Current Medications Current Medications Medications (Trade) Dose Ordered Sig/Kat Route PRN Reason Start Time Stop Time Status Last Admin Diagnostic Test (Pha) (Accu-Chek Comfort Curve T) 1 strip IQ4HR 01/24/24 20:00 01/25/24 00:15 Insulin Human Regular (InsuLIN R) IQ4HR SC 01/24/24 20:00 Dextrose 50 ml UD PRN IV Blood Sugar LESS THAN 60 01/24/24 18:15 Aspirin 81 mg DAILY PO 01/25/24 10:00 Aspirin 325 mg O PO 01/24/24 18:15 01/24/24 18:49 DC Atorvastatin Calcium (Lipitor) 40 mg HS PO 01/24/24 22:00 01/24/24 22:18 Morphine Sulfate 2 mg Q30MP PRN IV FOR CHEST PAIN 01/24/24 18:15 Acetaminophen (Tylenol Tablet) 650 mg Q6HP PRN PO MILD PAIN (1-3 PAIN SCALE) 01/24/24 18:15 Docusate Sodium (Colace Capsule) 100 mg DAILY PO 01/25/24 10:00 Nitroglycerin (Ntrostat Sublingual) 0.4 mg Q5MINP PRN SL FOR CHEST PAIN 01/24/24 18:15 01/24/24 18:49 DC Ondansetron HCl (Zofran) 4 mg Q4HP PRN IV NAUSEA / VOMITING 01/24/24 18:15 Nitroglycerin (Ntrostat Sublingual) 0.4 mg Q5MINP PRN SL FOR CHEST PAIN 01/24/24 18:15 Morphine Sulfate 2 mg Q30M PRN IV FOR CHEST PAIN 01/24/24 18:15 01/24/24 18:49 DC Albuterol (Ventolin Medneb) 2.5 mg Q4HR NEB 01/24/24 22:00 01/25/24 05:58 Methylprednisolone Sodium Succinate (Solu Medrol) 40 mg BID IV 01/24/24 22:00 01/24/24 22:18 Ceftriaxone Sodium 50 ml @ 100 mls/hr DAILY@09 IV 01/25/24 09:00 Azithromycin 250 ml @ 125 mls/hr DAILY IV 01/25/24 10:00 Enoxaparin Sodium (Lovenox) 70 mg Q12HR SC 01/25/24 10:00 UNV Review of Systems Constitutional: No symptom reported Ears, Nose, & Throat: No symptom reported Eyes: No symptom reported Neurological: No symptoms reported Pulmonary/Respiratory: SOB Cardiovascular: No symptom reported Gastrointestinal: No symptom reported Genitourinary: No symptom reported Musculoskeletal: No symptom reported Skin: No symptom reported Psychiatric: No symptom reported Endocrine: No symptom reported Hemotologic/Lymphatic: No symptom reported Vital Signs Vital Signs Date Time Temp Pulse Resp B/P (MAP) Pulse Ox O2 Delivery O2 Flow Rate FiO2 01/25/24 07:18 96.8 95 16 103/48 (66) 94 96.8 01/25/24 07:18 Bi-Pap+ 70 70 01/25/24 05:58 12.0 Physical Exam General Appearance: Cooperative. Well developed. Well nourished. Moderate acute respiratory distress Head Exam: Normal inspection Neck Exam: Normal inspection. Non-tender. Normal alignment Pulmonary/Respiratory: Chest non-tender. Diminished bilateral breath sounds. On BiPAP at 70% Cardiovascular/Chest: Regular rate and rhythm. S1, S2. Sinus rhythm with ST- segment depression to anteroseptal/inferior leads. S1T3 pattern present. Peripheral Pulses: 2+ Radial (R). 2+ Radial (L). 2+ Pedal (R). 2+ Pedal (L) Abdominal Exam: Normal bowel sounds. Soft. Nontender. No hepatospenomegaly. No masses Ankle Exam: Negative ankle edema Lower extremities: Negative lower extremity edema Neuro/Mental Status: A&O x4. Coherent Thoughts/Psych: Normal thought pattern. Appropriate mood and affect. Pleasant Appearance: Moderate acute respiratory distress Skin Exam: Normal inspection. Normal color. Warm. Dry Labs/Diagnostic Data Labs Test 01/25/24 06:20 01/25/24 03:51 01/25/24 00:14 01/24/24 16:21 Range/Units Blood Gas Specimen Type Arterial Blood Gas Sample Site Right radial Blood Gas Patient Temperature 37.0 Arterial Blood Date Drawn Arterial Blood pH 7.388 7.350-7.450 Arterial Blood Partial Pressure CO2 49.7 H 32.0-45.0 mmHg Arterial Blood Partial Pressure O2 50.8 *L 83.0-108.0 mmHg Arterial Blood HCO3 29.3 H 21.0-28.0 mmol/L Arterial Blood Oxygen Saturation 83.4 *L 94.0-98.0 % Arterial Blood Base Excess 3.3 H -2.0-3.0 mmol/L Arterial Blood Oxyhemoglobin 82.1 L 94.0-98.0 % Arterial Blood Carboxyhemoglobin 1.1 0.5-1.5 % Arterial Blood Methemoglobin 0.4 0.0-1.5 % Ashish Test Yes Blood Gas Total Hemoglobin 14.80 12.0-16.0 g/dL Blood Gas Liter Flow 10.00 Blood Gas Modality Oxymizer FiO2 % 72.0 Blood Gas Critical Value Read Back Yes Blood Gas Notified Whom [employer]er barron Blood Gas Notified Time [id number] Blood Gas Notified By [employer] White Blood Count 5.5 4.4-10.8 10^3/uL Red Blood Count 4.26 4.0-5.20 10^6/uL Hemoglobin 14.7 12.2-16.2 g/dL Hematocrit 42.8 36.0-46.0 % Mean Corpuscular Volume 100.5 H 80.0-100.0 fL Mean Corpuscular Hemoglobin 34.4 H 28.0-32.0 pg Mean Corpuscular Hemoglobin Concent 34.2 32.0-36.0 g/dL Red Cell Distribution Width 14.9 H 11.8-14.3 % Platelet Count 210 140-450 10^3/uL Mean Platelet Volume 8.0 6.9-10.8 fL Neutrophils (%) (Auto) 90.7 H 37.0-80.0 % Lymphocytes (%) (Auto) 6.6 L 10.0-50.0 % Monocytes (%) (Auto) 2.4 0.0-12.0 % Eosinophils (%) (Auto) 0.1 0.0-7.0 % Basophils (%) (Auto) 0.2 0.0-2.0 % Neutrophils # (Auto) 5.0 1.6-8.6 10 ^3/uL Lymphocytes # (Auto) 0.4 0.4-5.4 10 ^3/uL Monocytes # (Auto) 0.1 0-1.3 10 ^3/uL Eosinophils # (Auto) 0 0-0.8 10 ^3/uL Basophils # (Auto) 0 0-0.2 10 ^3/uL Nucleated Red Blood Cells 0.6 % Sodium Level 140 136-145 mmol/L Potassium Level 3.9 3.5-5.1 mmol/L Chloride Level 104 98-107 mmol/L Carbon Dioxide Level 27 20-31 mmol/L Anion Gap 9 5-15 Blood Urea Nitrogen 24 H 9-23 mg/dL Creatinine 1.27 H 0.550-1.02 mg/dL Glomerular Filtration Rate Calc 47 >90 mL/min BUN/Creatinine Ratio 18.9 10.0-20.0 Serum Glucose 145 H 74-106 mg/dL Calcium Level 9.8 8.7-10.4 mg/dL Magnesium Level 1.8 1.6-2.6 mg/dL Total Bilirubin 0.5 0.2-1.0 mg/dL Aspartate Amino Transferase (AST) 20 13-40 U/L Alanine Aminotransferase (ALT) 22 7-40 U/L Alkaline Phosphatase 73 46-116 U/L Troponin I High Sensitivity 617 *H </=34 ng/L Total Protein 6.1 5.7-8.2 g/dL Albumin 3.9 3.2-4.8 g/dL POC Glucose 144 H 70-106 mg/dl Venous Blood pH 7.359 7.320-7.430 Venous Blood pCO2 at Patient Temp 47.9 38.0-54.0 mmHg Venous Blood pO2 at Patient Temp 54.8 H 23.0-48.0 mmHg Venous Blood HCO3 26.4 22.0-29.0 mmol/L Venous Blood Base Excess 0.3 -2.0-3.0 mmol/L Blood Gas Set Respiration Rate 12.0 Blood Gas Pressure Support 7 Blood Gas EPAP 5 Blood Gas IPAP 12 Test 01/24/24 15:25 Range/Units B-Type Natriuretic Peptide 988.20 0-100 pg/mL Assessment NSTEMI rule out acute pulmonary emboli Rule out structural heart disease/RV strain Acute on chronic hypoxic respiratory failure Hx of PE in 2008, off Xarelto x 1 mo. Asthma exacerbation Acute kidney injury Suboptimal medical therapy Plan/Recommendation (Dr. Neely) We will continue further evaluation with a transthoracic echocardiogram to rule out structural heart disease/RV strain as well as CT angio with contrast to rule out an acute PE. The patient stopped Xarelto therapy approximately a month ago. In the meantime, initiate therapeutic Lovenox and continue supplemental ox ygenation. Trend troponin levels closely and monitor ECG changes. Further work-up per clinical course. Thank you for allowing us to participate in this patient's care. Please call if you have any questions or concerns. Critical care time: 40 min. This medical document was created using an electronic medical record system with voice recognition software and comput [employer] dictation system. Although this document has been carefully reviewed, there might still be some phonetic and typographical errors. Occasional wrong- word or ``sound-alike substitutions may have occurred due to the inherent limitations of voice recognition software. These areas are purely typographical due to imperfections of the software programs and do not reflect any compromise in the patient's medical care. Please read the chart carefully and recognize, using context, where these substitutions have occurred. Plan discussed with: Patient, Other Date of Service: Jan 25, 2024 Billing Provider: SUSY NEELY MD Cardiology Common Codes: 87165-CHPEKLFC CARE 30-74 MIN BART WARD [facility] Jan 25, 2024 08:56
[2024-01-25] MEDS: cefTRIAXone 1GM/50ML D5W 50 ML IV SCH (09:42)
[2024-01-25] MEDS ORDERED: ENOXAPARIN SOD 80 MG/0.8ML SYRINGE SC SCH (10:00)
--- NOTE | 2024-01-25 10:07 | DVH ---
CTA Chest with intravenous contrast INDICATION: SOB RULE OUT PE COMPARISON: None TECHNIQUE: Multidetector spiral CTA of the chest was performed of the chest with intravenous contrast . PULMONARY ANGIOGRAPHY PROTOCOL was utilized using a bolus-tracking technique centered on the main p ulmonary artery. Axial, coronal and sagittal multiplanar and MIP reformats were performed. CONTRAST: Type of contrast: Omni 350 Contrast injected: 100 ml Radiation dose : Chest: CTDI volume is 50 mGy. Dose-length product is 897.86 mGy*cm The dose indicators for CT are the volume computed Tomography (CT) dose Index (CTDIvol) and the dose Length product (DLP), and are measured in units of mGy and mGy-cm, respectively. These indicators are not patient dose, but values generated from the CT scanner acquisition factors. The report includes radiation exposure data for exposures received during this examination. Findings: Exam is limited by motion artifact. Pulmonary artery: There are filling defects in right upper, middle and lower lobe segmental and subsegmental branches. There is a curvilinear defect in the left lower lobe pulmonary artery. There is a filling defect in a subsegmental left lower lobe branch. There is evidence of right heart strain. Lower neck: Normal thyroid. Lungs: Patchy consolidation in the left lower lung. Ground-glass opacities in both lungs. Calcified g ranuloma in the right lung. Heart/Vascular Structures: Dilated right ventricle. Small pericardial effusion. Lymph Nodes: No adenopathy Pleura: No pleural effusion or significant pneumothorax. Musculoskeletal: No acute osseous abnormality. Soft tissues: Normal. Upper abdomen: Limited portions of the upper abdomen are unremarkable. IMPRESSION: 1. Limited by motion artifact. Bilateral pulmonary emboli greater in the right lung. Evidence of rig ht heart strain. 2. Patchy consolidation in the left lung likely represents pneumonia. Evidence of prior granulomatous disease. Small pericardial effusion. Clinical correlation and continued follow-up is recommended. Critical Result: Pumonary Emboli Findings discussed with MICHAELLE SANCHEZ at 01/25/2024 10:04 AM, and acknowledged receipt and understandi ng of the findings. .. HS:Y
--- NOTE | 2024-01-25 10:38 | ECG ---
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
[2024-01-25] MEDS ORDERED: HEPARIN DRIP/D5W 100UNITS/ML 250 ML IV SCH (10:45)
[2024-01-25] MEDS: HEPARIN SODIUM (PORCINE) 5000 UNITS/ML 1ML VIAL IV ONE ×3 (10:45→19:42)
[2024-01-25] MEDS: DOCUSATE SOD 100 MG CAP PO SCH (10:50)
[2024-01-25] MEDS: ASPirin 81 mg TAB PO SCH (10:51)
[2024-01-25 11:10] LABS: Hemoglobin 14.8 g/dL (12.2-16.2)
[2024-01-25 11:12] LABS: Hematocrit 43.3 % (36.0-46.0); Mean Corpuscular Hemoglobin 34.5 pg (28.0-32.0); Mean Corpuscular Hgb Conc. 34.2 g/dL (32.0-36.0); Mean Corpuscular Volume 100.9 fL (80.0-100.0); Platelet Count (auto) 221 10^3/uL (140-450); Red Blood Cells 4.29 10^6/uL (4.0-5.20); Red Cell Distribution Width 14.7 % (11.8-14.3); White Blood Cell 4.9 10^3/uL (4.4-10.8)
[2024-01-25 11:24] LABS: INR 1.03 (0.9-1.15); Partial Thromboplastin Time 27.6 SEC (24.5-34.5); Prothrombin Time 10.9 sec (9.3-11.8)
[2024-01-25 11:28] LABS: Band Neutrophils % (manual) 0; Basophils % (manual) 0 (0.0-2.0); Blast Cells 0; Eosinophils % (manual) 0 (0-7); Metamyelocytes % 0; Myelocytes % 0; Promyelocytes % 0; Reactive Lymphocytes 0
[2024-01-25] MEDS: HEPARIN DRIP/D5W 100UNITS/ML 250 ML IV SCH ×2 (11:56→19:42)
--- NOTE | 2024-01-25 12:19 | DVH ---
Bilateral lower extremity venous duplex Clinical History: PE r/o DVT Comparison: None Technique: Duplex Doppler evaluation of the deep venous systems of both lower extremities from the common femora l veins to the popliteal veins including color Doppler and spectral/pulsed waveform analysis was perf ormed. Findings: RIGHT SIDE: The common femoral vein demonstrates appropriate compressibility and waveform variability. There is compressibility/patency of the great saphenous vein at the proximal thigh. The femoral vein demonstrates appropriate compressibility and waveform variability. The deep femoral vein demonstrates appropriate compressibility and waveform variability. The popliteal vein demonstrates appropriate compressibility and waveform variability. There is normal compressibility at the tibioperoneal trunk. LEFT SIDE: The common femoral vein demonstrates appropriate compressibility and waveform variability. There is compressibility/patency of the great saphenous vein at the proximal thigh. The femoral vein demonstrates appropriate compressibility and waveform variability. The deep femoral vein demonstrates appropriate compressibility and waveform variability. The popliteal vein demonstrates appropriate compressibility and waveform variability. There is normal compressibility at the tibioperoneal trunk. Impression: 1. No right or left femoropopliteal venous thrombosis. HS:Y
[2024-01-25 12:22] LABS: Lymphocytes % (manual) 14 (10.0-50.0); Monocytes % (manual) 8 (0-12)
[2024-01-25 12:23] LABS: Platelet Estimate Adequate
[2024-01-25 12:31] LABS: Rapid Influenza A Negative (Negative); Rapid Influenza B Negative (Negative)
[2024-01-25 12:33] LABS: COVID19 ANTIGEN SOFIA FIA NEGATIVE (NEGATIVE)
[2024-01-25] MEDS: AZITHROMYCIN 500MG/ 250ML 250 ML IV SCH (13:05)
--- NOTE | 2024-01-25 13:08 | DVHPN2 ---
Subjective Continue to complain of SOB and chest tightness Reviewed: Care Plan, H&P, Labs, Medications, Previous Orders, Radiology, Other (Consultation) Changes from previous H/P or p: No Changes Objective Vitals Vital Signs Date Time Temp Pulse Resp B/P (MAP) Pulse Ox O2 Delivery O2 Flow Rate FiO2 01/25/24 11:00 99 17 118/77 (91) 94 01/25/24 10:30 70.0 80 01/25/24 07:18 96.8 96.8 01/25/24 07:18 Bi-Pap+ Intake/Output Intake and Output 01/25/24 07:00 Intake Total 50 ml Balance 50 ml Intake IV Total 50 ml General Appearance: Alert, Oriented X3, Cooperative, moderate distress HEENT: Atraumatic Lungs: Other (Decreased air entry bilateral) Cardiovascular: Normal S1, Normal S2, Other (Tachycardia) Abdomen: Normal bowel sounds, Soft, No tenderness Neuro: Normal speech, Cranial nerves 3-12 NL Psych/Mental Status: Mental status NL, Mood NL Medications Current Medications Medications Dose Ordered Sig/Kat Route Start Time Stop Time Status Last Admin Dose Admin Diagnostic Test (Pha) 1 strip IQ4HR 01/24/24 20:00 01/25/24 12:23 1 STRIP Insulin Human Regular IQ4HR SC 01/24/24 20:00 01/25/24 12:26 3 UNITS Dextrose 50 ml UD PRN IV 01/24/24 18:15 Aspirin 81 mg DAILY PO 01/25/24 10:00 01/25/24 10:51 81 MG Atorvastatin Calcium 40 mg HS PO 01/24/24 22:00 01/24/24 22:18 40 MG Morphine Sulfate 2 mg Q30MP PRN IV 01/24/24 18:15 Acetaminophen 650 mg Q6HP PRN PO 01/24/24 18:15 Docusate Sodium 100 mg DAILY PO 01/25/24 10:00 01/25/24 10:50 100 MG Ondansetron HCl 4 mg Q4HP PRN IV 01/24/24 18:15 Nitroglycerin 0.4 mg Q5MINP PRN SL 01/24/24 18:15 Albuterol 2.5 mg Q4HR NEB 01/24/24 22:00 01/25/24 11:27 2.5 MG Methylprednisolone Sodium Succinate 40 mg BID IV 01/24/24 22:00 01/25/24 10:51 40 MG Ceftriaxone Sodium 50 ml @ 100 mls/hr DAILY@09 IV 01/25/24 09:00 01/25/24 09:42 100 MLS/HR Azithromycin 250 ml @ 125 mls/hr DAILY IV 01/25/24 10:00 01/25/24 13:05 125 MLS/HR Heparin Sodium/ Dextrose 250 ml @ 13 mls/hr [id number] IV 01/25/24 12:00 01/25/24 11:56 13 MLS/HR Laboratory Results Laboratory Tests 01/25/24 03:51 01/25/24 10:49 Chemistry Test 01/24/24 15:25 01/25/24 03:51 Calcium Level 9.5 mg/dL (8.7-10.4) 9.8 mg/dL (8.7-10.4) Albumin 3.9 g/dL (3.2-4.8) Magnesium Level 1.8 mg/dL (1.6-2.6) Total Protein 6.1 g/dL (5.7-8.2) Coagulation Test 01/25/24 10:49 Prothrombin Time 10.9 sec (9.3-11.8) Prothrombin Time INR 1.03 (0.9-1.15) Activated Partial Thromboplast Time 27.6 SEC (24.5-34.5) Lipid panel Test 01/25/24 03:51 Cholesterol Level 195 mg/dL (< 200) HDL Cholesterol 80 mg/dL (40-59) H Triglycerides Level 96 mg/dL (< 150) Cardiac Markers Test 01/24/24 15:25 01/25/24 03:51 B-Type Natriuretic Peptide 988.20 pg/mL (0-100) 747.58 pg/mL (0-100) LFT Test 01/25/24 03:51 Alanine Aminotransferase (ALT) 22 U/L (7-40) Alkaline Phosphatase 73 U/L (46-116) Aspartate Amino Transferase (AST) 20 U/L (13-40) Total Bilirubin 0.5 mg/dL (0.2-1.0) HgA1c, TSH Test 01/25/24 03:51 Hemoglobin A1c 6.1 % A1C (<5.7) H Thyroid Stimulating Hormone (TSH) 0.42 uIU/mL (0.55-4.78) L Blood Gas Results Test 01/24/24 16:21 01/25/24 06:20 FiO2 % 100.0 72.0 Arterial Blood pH 7.388 (7.350-7.450) Labs and/or images reviewed: Labs reviewed by me, Image(s) reviewed by me Assessment/Plan Assessment/Plan A 64-year-old female patient; with multiple comorbidities; who presented to emergency department with SOB and chest tightness. #Acute hypoxic respiratory failure due to bilateral pulmonary emboli; reviewed the available imaging studies; continue oxygen therapy as needed; now on high- flow nasal cannula; was on BiPAP; continue monitoring #Submassive bilateral pulmonary emboli with RV strain in the setting of history of pulmonary embolism 2008; causing SOB and chest tightness; stopped Xarelto last month; started on heparin infusion; cardiology is following; reviewed chest angiogram and echocardiogram; no DVTs; continue monitoring #Chest tightness with NSTEMI type 2; demand ischemia; the setting of RV strain secondary to submassive bilateral pulmonary emboli; telemetry; continue aspirin and statin; cardiology is following; continue monitoring #Essential hypertension; continue antihypertensive medications as indicated; continue monitoring #Hyperglycemia; prediabetic; continue insulin sliding scale and hypoglycemia protocol; continue monitoring #Asthma exacerbation; continue IV steroids with IV antibiotics; continue monitoring #Metabolic syndrome with prediabetes and dyslipidemia along with overweight/obesity; counseled the patient on the importance of adopting healthy lifestyle with diet and exercise in order to lose weight #Dyslipidemia; continue statin; reviewed lipid profile; continue monitoring #Prediabetes; hemoglobin A1c of 6.1; management as above; continue monitoring #CURRY; most likely vasomotor nephropathy in the setting of submassive bilateral pulmonary emboli and RV strain; avoid nephrotoxic agents; continue monitoring #Macrocytosis without anemia; to investigate as outpatient; continue monitoring #Low TSH; ordered free T4; continue monitoring Goals of care discussed for 20 minutes; full code 120 minutes of critical care time Late entry This medical document was created using an electronic medical record system with computerized dictation system. Although this document has been carefully reviewed, there might still be some phonetic and typographical errors. These areas are purely typographical due to imperfections of the software programs, and do not reflect any compromise in the patient's medical care. Plan discussed with: Patient, Other (Nurse) My Orders Orders - VINOD WALTER MD Procedure Category Date Status Time Platelet Monitoring [facility] 01/25/24 In Process 10:38 Vte Protocol Initiated [facility] 01/25/24 In Process 10:38 Heparin Per [facility] 01/25/24 In Process Standardized Proce 10:38 Discontinue All Im [facility] 01/25/24 In Process Injections 10:38 Oxygen By High-Flow RT 01/25/24 Transmitted 11:21 * Cardiology Consult CONS 01/25/24 Transmitted 11:42 Complete Blood Count LAB 01/26/24 Verified 04:00 Comprehensive LAB 01/26/24 Verified Metabolic Panel 04:00 Magnesium LAB 01/26/24 Verified 04:00 Heparin Drip/D5w PHA 01/25/24 In Process 100units/Ml 12:00 PTPTT LAB 01/25/24 Logged 18:00 Heparin Per Pharmacy [facility] 01/25/24 In Process Protocol 12:36 Date of Service: Jan 25, 2024 Billing Provider: VINOD WALTER MD Common Visit Codes: 57354-ONSIXKDM CARE 30-74 MIN (120 minutes), 96343-LQVGXWEC CARE-EACH +30MIN Secondary Visit Codes: 44656-IDCIKWSI CARE PLAN 30 MINUTES (20 minutes) VINOD WALTER MD Jan 25, 2024 13:08
--- NOTE | 2024-01-25 13:46 | DVHSR ---
APPROVED REPORT EXAM: LIMITED Two-dimensional and M-mode echocardiogram with Doppler and color Doppler. Blood Pressure: 98/66 mmHg INDICATION elevated troponin RISK FACTORS Height: 5'5, Weight: 161 DIMENSIONS LVDd3.1 (3.8-5.7cm)LA (2D) (1.9-4.0cm)Aortic Root3.4 (2.0-3.7cm) LVDs1.7 (2.5-4.0cm)LA (MM) (1.9-4.0cm)Aortic Cusp Exc1.6 (1.5-2.0cm) EF (%) 60.0 (55-70%)Rt. Atrium4.3 (1.9-4.0cm)Asc. Aorta3.6 cm IVSd1.1 (0.7-1.1cm)RV (D) (1.8-2.4cm) PWd1.0 (0.7-1.1cm) Mitral Valve MitralMitral Stenosis E/A ratio0.02D MVAcm2 Aortic Valve Aortic ValveAortic Stenosis LVOT Diameter2.2 (1.8-2.4cm)Doppler AVAcm2 Tricuspid Valve TR Velocity3.44m/s [id number] Other Information Quality : LimitedRhythm : Technically limited study due to body habitus.patient position. Conclusion Normal left ventricular size and dimension. Normal left ventricular systolic function estimated ejec tion fraction 55%. There is a grade one diastolic dysfunction. Moderately dilated right ventricle. Moderately severely reduced left ventricular systolic function. Severely elevated right ventricular systolic pressure at 65 mm of mercury. Normal biatrial size and dimension. Normal aortic valve structure and function. Normal Mitral valve structure and function. There is vyri-[id number] tricuspid valve regurgitation. The pulmonary valve is grossly normal. No pericardial effusion.
[2024-01-25 19:10] LABS: INR 1.01 (0.9-1.15); Partial Thromboplastin Time 25.9 SEC (24.5-34.5); Prothrombin Time 10.7 sec (9.3-11.8)
[2024-01-26] VITALS (30 sets, daily range): BP systolic 101–128; BP diastolic 57–83; PULSE 89–102; RESP 11–23; TEMP 98.2–98.3; O2SAT 89–100
[2024-01-26 02:54] LABS: Basophils # (auto) 0 10 ^3/uL (0-0.2); Basophils % (auto) 0.2 % (0.0-2.0); Eosinophils # (auto) 0 10 ^3/uL (0-0.8); Hematocrit 43.2 % (36.0-46.0); Hemoglobin 14.5 g/dL (12.2-16.2); Lymphocytes # (auto) 0.3 10 ^3/uL (0.4-5.4); Lymphocytes % (auto) 4.7 % (10.0-50.0); Mean Corpuscular Hemoglobin 33.8 pg (28.0-32.0); Mean Corpuscular Hgb Conc. 33.5 g/dL (32.0-36.0); Monocytes # (auto) 0.3 10 ^3/uL (0-1.3); Monocytes % (auto) 4.2 % (0.0-12.0); Neutrophils # (auto) 6.6 10 ^3/uL (1.6-8.6); Neutrophils % (auto) 90.9 % (37.0-80.0); Nucleated Red Blood Cells % 0.6 %; Platelet Count (auto) 242 10^3/uL (140-450); Red Blood Cells 4.28 10^6/uL (4.0-5.20); Red Cell Distribution Width 14.9 % (11.8-14.3); White Blood Cell 7.3 10^3/uL (4.4-10.8)
[2024-01-26 03:18] LABS: Alanine Aminotransferase 19 U/L (7-40); Albumin 4.2 g/dL (3.2-4.8); Alkaline Phosphatase 78 U/L (46-116); Anion Gap 8 (5-15); Aspartate Aminotransferase 17 U/L (13-40); BUN/Creatinine Ratio 26.6 (10.0-20.0); Calcium 10.1 mg/dL (8.7-10.4); Carbon Dioxide 28 mmol/L (20-31); Chloride 104 mmol/L (98-107); Potassium 3.9 mmol/L (3.5-5.1); Sodium 140 mmol/L (136-145)
[2024-01-26 03:19] LABS: Bilirubin, Total 0.5 mg/dL (0.2-1.0); Blood Urea Nitrogen 29 mg/dL (9-23); Glucose 145 mg/dL (74-106); Total Protein 6.4 g/dL (5.7-8.2)
[2024-01-26 03:24] LABS: INR 1.06 (0.9-1.15); Prothrombin Time 11.2 sec (9.3-11.8)
[2024-01-26 03:25] LABS: Partial Thromboplastin Time > 139.0 SEC (24.5-34.5)
[2024-01-26] MEDS: HEPARIN DRIP/D5W 100UNITS/ML 250 ML IV SCH ×2 (04:38→17:15)
--- NOTE | 2024-01-26 09:10 | DVHPN2 ---
Consult Progress Note Date Seen: Jan 26, 2024 Subjective Review of Systems: CVS:Normal, RESPIRATORY:Normal, NEURO:Normal Objective vital signs Vital Sign Date Time Temp Pulse Resp B/P (MAP) Pulse Ox O2 Delivery O2 Flow Rate FiO2 01/26/24 07:15 94 18 94 70.0 75 01/26/24 06:00 Hi-Flow Heated NC+ 01/26/24 06:00 123/78 (93) 01/25/24 20:28 98.3 98.3 Total Intake and Output 01/25/24 01/25/24 01/26/24 15:00 23:00 07:00 Intake Total 314 ml 228 ml 90 ml Balance 314 ml 228 ml 90 ml medications Current Medications Medications Dose Ordered Sig/Kat Route Start Time Stop Time Status Last Admin Dose Admin Diagnostic Test (Pha) 1 strip IQ4HR 01/24/24 20:00 01/26/24 08:01 1 STRIP Insulin Human Regular IQ4HR SC 01/24/24 20:00 01/26/24 08:01 2 UNITS Dextrose 50 ml UD PRN IV 01/24/24 18:15 Aspirin 81 mg DAILY PO 01/25/24 10:00 01/25/24 10:51 81 MG Atorvastatin Calcium 40 mg HS PO 01/24/24 22:00 01/25/24 22:19 40 MG Morphine Sulfate 2 mg Q30MP PRN IV 01/24/24 18:15 Acetaminophen 650 mg Q6HP PRN PO 01/24/24 18:15 Docusate Sodium 100 mg DAILY PO 01/25/24 10:00 01/25/24 10:50 100 MG Ondansetron HCl 4 mg Q4HP PRN IV 01/24/24 18:15 Nitroglycerin 0.4 mg Q5MINP PRN SL 01/24/24 18:15 Albuterol 2.5 mg Q4HR NEB 01/24/24 22:00 01/26/24 07:15 2.5 MG Methylprednisolone Sodium Succinate 40 mg BID IV 01/24/24 22:00 01/25/24 22:19 40 MG Ceftriaxone Sodium 50 ml @ 100 mls/hr DAILY@09 IV 01/25/24 09:00 01/25/24 09:42 100 MLS/HR Azithromycin 250 ml @ 125 mls/hr DAILY IV 01/25/24 10:00 01/25/24 13:05 125 MLS/HR Heparin Sodium/ Dextrose 250 ml @ 13 mls/hr [id number] IV 01/26/24 04:20 01/26/24 04:38 13 MLS/HR Examination: LUNGS:Abnormal (High-flow O2 at 75%), CVS:Normal, NEURO:Normal laboratory and microbiology Laboratory Tests 01/26/24 02:44 Test 01/26/24 02:44 Range/Units Serum Glucose 145 H 74-106 mg/dL Problem List/Assessment/Plan Problem List/Assessment/Plan NSTEMI with bilateral pulmonary emboli and RV strain, S1T3 pattern Acute on chronic hypoxic respiratory failure Left lung pneumonia Hx of PE in 2008, off Xarelto x 1 mo. Asthma exacerbation Acute kidney injury Pre-diabetes, newly diagnosed Suboptimal medical therapy Plan/Recommendation (Dr. Neely) Transthoracic echocardiogram revealed EF 55% with a moderately dilated right ventricle, moderate/severe reduced right ventricular systolic function, and RVSP at 65 mmHg. The patient with a history of PE stopped Xarelto therapy approximately a month ago. She now presents with bilateral PE R>L with evidence of heart strain as well as PNA. Continuos of high-flow O2 currently at 75%. Case discussed with Dr. Neely, we will hold off from invasive procedures and monitor closely at this time. Continue heparin drip per pharmacy protocol. ABX therapy per primary care team. Repeat CXR. Further work-up per clinical course. Thank you for allowing us to participate in this patient's care. Please call if you have any questions or concerns. Critical care time: 30 min. This medical document was created using an electronic medical record system with voice recognition software and computerized dictation system. Although this document has been carefully reviewed, there might still be some phonetic and typographical errors. Occasional wrong-word or ``sound-alike substitutions may have occurred due to the inherent limitations of voice recognition software. These areas are purely typographical due to imperfections of the software programs and do not reflect any compromise in the patient's medical care. Please read the chart carefully and recognize, using context, where these substitutions have occurred. Plan discussed with: Patient, Other Date of Service: Jan 26, 2024 Billing Provider: SUSY NEELY MD Cardiology Common Codes: [id number] CARE 30-[address] [facility] Jan 26, 2024 09:10
--- NOTE | 2024-01-26 10:23 | DVH ---
CLINICAL INFORMATION: 64 years old, Female; pneumonia. TECHNIQUE: Single AP portable chest radiograph was obtained. COMPARISON: XY CHEST PORTABLE on DOS: 01/24/24 FINDINGS: Mild atelectasis in the right lung base. Atelectasis and/or consolidation in the left lung base appea rs unchanged. Unchanged cardiomegaly and mild prominence of the pulmonary vasculature. No pneumothora x. No other significant interval change. IMPRESSION: 1. Atelectasis in the lung bases with possible consolidation in the left lung base, unchanged. 2. Cardiomegaly and mild prominence of the pulmonary vasculature May suggest a degree of pulmonary va scular congestion in the appropriate clinical setting. Appears similar compared to the prior exam.
[2024-01-26 11:02] LABS: INR 1.03 (0.9-1.15); Partial Thromboplastin Time 68.3 SEC (24.5-34.5); Prothrombin Time 10.9 sec (9.3-11.8)
--- NOTE | 2024-01-26 12:32 | DVHPN2 ---
Subjective Decreasing SOB and chest tightness Reviewed: Care Plan, H&P, Labs, Medications, Previous Orders, Radiology, Other (Consultation) Changes from previous H/P or p: Changes Objective Vitals Vital Signs Date Time Temp Pulse Resp B/P (MAP) Pulse Ox O2 Delivery O2 Flow Rate FiO2 01/26/24 10:47 92 18 94 60.0 70 01/26/24 10:00 Hi-Flow Heated NC+ 01/26/24 06:00 123/78 (93) 01/25/24 20:28 98.3 98.3 Intake/Output Intake and Output 01/26/24 07:00 Intake Total 645 ml Balance 645 ml Intake IV Total 645 ml # Voids 1 General Appearance: Alert, Oriented X3, Cooperative, moderate distress HEENT: Atraumatic Lungs: Other (Decreased air entry bilateral) Cardiovascular: Normal S1, Normal S2, Other (Tachycardia) Abdomen: Normal bowel sounds, Soft, No tenderness Neuro: Normal speech, Cranial nerves 3-12 NL Psych/Mental Status: Mental status NL, Mood NL Medications Current Medications Medications Dose Ordered Sig/Kat Route Start Time Stop Time Status Last Admin Dose Admin Diagnostic Test (Pha) 1 strip IQ4HR 01/24/24 20:00 01/26/24 08:01 1 STRIP Insulin Human Regular IQ4HR SC 01/24/24 20:00 01/26/24 08:01 2 UNITS Dextrose 50 ml UD PRN IV 01/24/24 18:15 Aspirin 81 mg DAILY PO 01/25/24 10:00 01/26/24 09:25 81 MG Atorvastatin Calcium 40 mg HS PO 01/24/24 22:00 01/25/24 22:19 40 MG Morphine Sulfate 2 mg Q30MP PRN IV 01/24/24 18:15 Acetaminophen 650 mg Q6HP PRN PO 01/24/24 18:15 Docusate Sodium 100 mg DAILY PO 01/25/24 10:00 01/26/24 09:25 100 MG Ondansetron HCl 4 mg Q4HP PRN IV 01/24/24 18:15 Nitroglycerin 0.4 mg Q5MINP PRN SL 01/24/24 18:15 Albuterol 2.5 mg Q4HR NEB 01/24/24 22:00 01/26/24 10:47 2.5 MG Methylprednisolone Sodium Succinate 40 mg BID IV 01/24/24 22:00 01/26/24 09:25 40 MG Ceftriaxone Sodium 50 ml @ 100 mls/hr DAILY@09 IV 01/25/24 09:00 01/26/24 09:25 100 MLS/HR Azithromycin 250 ml @ 125 mls/hr DAILY IV 01/25/24 10:00 01/26/24 10:00 125 MLS/HR Heparin Sodium/ Dextrose 250 ml @ 13 mls/hr [id number] IV 01/26/24 04:20 01/26/24 09:28 13 MLS/HR Furosemide 20 mg DAILY IV 01/27/24 10:00 Laboratory Results Laboratory Tests 01/26/24 02:44 Chemistry Test 01/26/24 02:44 Albumin 4.2 g/dL (3.2-4.8) Calcium Level 10.1 mg/dL (8.7-10.4) Magnesium Level 2.0 mg/dL (1.6-2.6) Total Protein 6.4 g/dL (5.7-8.2) Coagulation Test 01/25/24 18:08 01/26/24 02:44 01/26/24 10:22 Prothrombin Time 10.7 sec (9.3-11.8) 11.2 sec (9.3-11.8) 10.9 sec (9.3-11.8) Prothrombin Time INR 1.01 (0.9-1.15) 1.06 (0.9-1.15) 1.03 (0.9-1.15) Activated Partial Thromboplast Time 25.9 SEC (24.5-34.5) > 139.0 SEC (24.5-34.5) *H 68.3 SEC (24.5-34.5) H LFT Test 01/26/24 02:44 Alanine Aminotransferase (ALT) 19 U/L (7-40) Alkaline Phosphatase 78 U/L (46-116) Aspartate Amino Transferase (AST) 17 U/L (13-40) Total Bilirubin 0.5 mg/dL (0.2-1.0) Labs and/or images reviewed: Labs reviewed by me, Image(s) reviewed by me Assessment/Plan Assessment/Plan A 64-year-old female patient; with multiple comorbidities; who presented to emergency department with SOB and chest tightness. #Acute hypoxic respiratory failure due to bilateral pulmonary emboli; reviewed the available imaging studies; continue oxygen therapy as needed; now on high- flow nasal cannula 60 L/min; was on BiPAP; continue close monitoring #Submassive bilateral pulmonary emboli with RV strain in the setting of history of pulmonary embolism 2008; causing SOB and chest tightness; stopped Xarelto last month; continue heparin infusion; cardiology is following; reviewed chest angiogram and echocardiogram; no DVTs; continue close monitoring #Chest tightness with NSTEMI type 2; demand ischemia; the setting of RV strain secondary to submassive bilateral pulmonary emboli; telemetry; continue aspirin and statin; cardiology is following; continue close monitoring #Essential hypertension; continue antihypertensive medications as indicated; continue monitoring #Hyperglycemia; prediabetic; continue insulin sliding scale and hypoglycemia protocol; continue monitoring #Asthma exacerbation; continue IV steroids with IV antibiotics; continue oxygen therapy as above; continue monitoring #Metabolic syndrome with prediabetes and dyslipidemia along with overweight/obesity; counseled the patient on the importance of adopting healthy lifestyle with diet and exercise in order to lose weight #Dyslipidemia; continue statin; reviewed lipid profile; continue monitoring #Prediabetes; hemoglobin A1c of 6.1; management as above; continue monitoring #CURRY; most likely vasomotor nephropathy in the setting of submassive bilateral pulmonary emboli and RV strain; avoid nephrotoxic agents; continue monitoring #Macrocytosis without anemia; to investigate as outpatient; continue monitoring #Low TSH; free T4 pending; continue monitoring 66 minutes of critical care time Late entry This medical document was created using an electronic medical record system with computerized dictation system. Although this document has been carefully reviewed, there might still be some phonetic and typographical errors. These areas are purely typographical due to imperfections of the software programs, and do not reflect any compromise in the patient's medical care. Plan discussed with: Patient, Other (Nurse) My Orders Orders - VINOD WALTER MD Procedure Category Date Status Time Heparin Per Pharmacy JENNI 01/25/24 In Process Protocol 12:36 Mrsa Screen LEONA 01/25/24 Uncollected 21:10 Heparin Drip/D5w PHA 01/26/24 In Process 100units/Ml 04:20 Free T4 (Free LAB 01/26/24 In Process Thyroxine) 08:17 PTPTT LAB 01/26/24 Logged 16:00 Date of Service: Jan 26, 2024 Billing Provider: VINOD WALTER MD Common Visit Codes: [id number] CARE 30-74 MIN (66 minutes) VINOD WALTER MD Jan 26, 2024 12:32
[2024-01-26] MEDS: FUROSEMIDE 40 MG/4 ML VIAL IV ONE (12:53)
[2024-01-26 16:39] LABS: INR 1.03 (0.9-1.15); Partial Thromboplastin Time 48.2 SEC (24.5-34.5); Prothrombin Time 10.9 sec (9.3-11.8)
[2024-01-26 23:59] LABS: INR 1.07 (0.9-1.15); Prothrombin Time 11.3 sec (9.3-11.8)
[2024-01-27] VITALS (33 sets, daily range): BP systolic 78–164; BP diastolic 59–97; PULSE 89–113; RESP 10–23; TEMP 98.1–98.6; O2SAT 89–96
[2024-01-27 00:03] LABS: Partial Thromboplastin Time 87.3 SEC (24.5-34.5)
[2024-01-27] MEDS: HEPARIN DRIP/D5W 100UNITS/ML 250 ML IV SCH ×2 (00:18→08:44)
[2024-01-27 04:08] LABS: Anion Gap 9 (5-15); Calcium 10.2 mg/dL (8.7-10.4); Carbon Dioxide 30 mmol/L (20-31); Chloride 102 mmol/L (98-107); Potassium 4.2 mmol/L (3.5-5.1); Sodium 141 mmol/L (136-145)
[2024-01-27 04:14] LABS: BUN/Creatinine Ratio 29.8 (10.0-20.0)
[2024-01-27 04:17] LABS: Blood Urea Nitrogen 31 mg/dL (9-23); Glucose 143 mg/dL (74-106)
[2024-01-27 06:29] LABS: INR 1.05 (0.9-1.15); Prothrombin Time 11.1 sec (9.3-11.8)
[2024-01-27 06:32] LABS: Partial Thromboplastin Time 77.4 SEC (24.5-34.5)
[2024-01-27 09:10] LABS: Base Excess 5.1 mmol/L (-2.0-3.0)
[2024-01-27] MEDS: FUROSEMIDE 20 MG/2 ML VIAL IV SCH (10:39)
--- NOTE | 2024-01-27 12:16 | DVHPN2 ---
Subjective Decreasing SOB and chest tightness Reviewed: Care Plan, H&P, Labs, Medications, Previous Orders, Radiology, Other (Consultation) Changes from previous H/P or p: Changes Objective Vitals Vital Signs Date Time Temp Pulse Resp B/P (MAP) Pulse Ox O2 Delivery O2 Flow Rate FiO2 01/27/24 10:39 122/78 01/27/24 10:00 95 13 94 01/27/24 10:00 Hi-Flow Heated NC+ 60 60 60 01/27/24 08:00 98.5 98.5 Intake/Output Intake and Output 01/27/24 07:00 Intake Total 1024 ml Balance 1024 ml Intake Oral 400 ml IV Total 624 ml # Voids 7 General Appearance: Alert, Oriented X3, Cooperative, moderate distress HEENT: Atraumatic Lungs: Other (Decreased air entry bilateral) Cardiovascular: Normal S1, Normal S2, Other (Tachycardia) Abdomen: Normal bowel sounds, Soft, No tenderness Neuro: Normal speech, Cranial nerves 3-12 NL Psych/Mental Status: Mental status NL, Mood NL Medications Current Medications Medications Dose Ordered Sig/Kat Route Start Time Stop Time Status Last Admin Dose Admin Diagnostic Test (Pha) 1 strip IQ4HR 01/24/24 20:00 01/27/24 12:03 1 STRIP Insulin Human Regular IQ4HR SC 01/24/24 20:00 01/27/24 12:12 2 UNITS Dextrose 50 ml UD PRN IV 01/24/24 18:15 Aspirin 81 mg DAILY PO 01/25/24 10:00 01/27/24 10:38 81 MG Atorvastatin Calcium 40 mg HS PO 01/24/24 22:00 01/26/24 21:33 40 MG Morphine Sulfate 2 mg Q30MP PRN IV 01/24/24 18:15 Acetaminophen 650 mg Q6HP PRN PO 01/24/24 18:15 Docusate Sodium 100 mg DAILY PO 01/25/24 10:00 01/27/24 10:38 100 MG Ondansetron HCl 4 mg Q4HP PRN IV 01/24/24 18:15 Nitroglycerin 0.4 mg Q5MINP PRN SL 01/24/24 18:15 Albuterol 2.5 mg Q4HR NEB 01/24/24 22:00 01/27/24 09:29 2.5 MG Methylprednisolone Sodium Succinate 40 mg BID IV 01/24/24 22:00 01/27/24 10:40 40 MG Ceftriaxone Sodium 50 ml @ 100 mls/hr DAILY@09 IV 01/25/24 09:00 01/27/24 09:09 100 MLS/HR Azithromycin 250 ml @ 125 mls/hr DAILY IV 01/25/24 10:00 01/27/24 10:38 125 MLS/HR Furosemide 20 mg DAILY IV 01/27/24 10:00 01/27/24 10:39 20 MG Heparin Sodium/ Dextrose 250 ml @ 11 mls/hr [id number] IV 01/27/24 08:30 01/27/24 08:44 11 MLS/HR Laboratory Results Laboratory Tests 01/26/24 02:44 01/27/24 03:30 Chemistry Test 01/27/24 03:30 Calcium Level 10.2 mg/dL (8.7-10.4) Coagulation Test 01/26/24 16:14 01/26/24 23:31 01/27/24 05:48 Prothrombin Time 10.9 sec (9.3-11.8) 11.3 sec (9.3-11.8) 11.1 sec (9.3-11.8) Prothrombin Time INR 1.03 (0.9-1.15) 1.07 (0.9-1.15) 1.05 (0.9-1.15) Activated Partial Thromboplast Time 48.2 SEC (24.5-34.5) H 87.3 SEC (24.5-34.5) *H 77.4 SEC (24.5-34.5) *H Blood Gas Results Test 01/27/24 09:04 Arterial Blood pH 7.412 (7.350-7.450) FiO2 % 60.0 Labs and/or images reviewed: Labs reviewed by me, Image(s) reviewed by me Assessment/Plan Assessment/Plan A 64-year-old female patient; with multiple comorbidities; who presented to emergency department with SOB and chest tightness. #Acute hypoxic respiratory failure due to bilateral pulmonary emboli; reviewed the available imaging studies and ABGs; continue oxygen therapy as needed; now on high-flow nasal cannula FiO2 of 50%; was on BiPAP; continue close monitoring #Submassive bilateral pulmonary emboli with RV strain in the setting of history of pulmonary embolism 2008; causing SOB and chest tightness; stopped Xarelto last month; continue heparin infusion; cardiology is following; reviewed chest angiogram and echocardiogram; no DVTs; continue close monitoring #Chest tightness with NSTEMI type 2; demand ischemia; the setting of RV strain secondary to submassive bilateral pulmonary emboli; telemetry; continue aspirin and statin; cardiology is following; continue close monitoring #Essential hypertension; continue antihypertensive medications as indicated; continue monitoring #Hyperglycemia; prediabetic; continue insulin sliding scale and hypoglycemia protocol; continue monitoring #Asthma exacerbation; continue IV steroids with IV antibiotics; continue oxygen therapy as above; continue monitoring #Metabolic syndrome with prediabetes and dyslipidemia along with overweight/obesity; counseled the patient on the importance of adopting healthy lifestyle with diet and exercise in order to lose weight #Dyslipidemia; continue statin; reviewed lipid profile; continue monitoring #Prediabetes; hemoglobin A1c of 6.1%; management as above; continue monitoring #CURRY; most likely vasomotor nephropathy in the setting of submassive bilateral pulmonary emboli and RV strain; avoid nephrotoxic agents; continue monitoring #Macrocytosis without anemia; to investigate as outpatient; continue monitoring #Low TSH; free T4 pending; continue monitoring 55 minutes of critical care time This medical document was created using an electronic medical record system with computerized dictation system. Although this document has been carefully reviewed, there might still be some phonetic and typographical errors. These areas are purely typographical due to imperfections of the software programs, and do not reflect any compromise in the patient's medical care. Plan discussed with: Patient, Other (Nurse) My Orders Orders - VINOD WALTER MD Procedure Category Date Status Time 1 View Decubitus XY 01/28/24 Logged Chest Xray 07:00 Heparin Drip/D5w PHA 01/27/24 In Process 100units/Ml 08:30 PTPTT LAB 01/27/24 Logged 15:00 Abg W/ Co-Ox RT 01/27/24 Logged 08:50 Complete Blood Count LAB 01/28/24 Verified 04:00 Magnesium LAB 01/28/24 Verified 04:00 Comprehensive LAB 01/28/24 Verified Metabolic Panel 04:00 Date of Service: Jan 27, 2024 Billing Provider: VINOD WALTER MD Common Visit Codes: [id number] CARE 30-74 MIN (55 minutes) VINOD WALTER MD Jan 27, 2024 12:16
[2024-01-27] MEDS: ACETAMINOPHEN 325 MG TAB PO PRN (12:42)
--- NOTE | 2024-01-27 13:13 | DVHPN2 ---
Consult Progress Note Date Seen: Jan 27, 2024 Subjective Other Systems: Patient in normal sinus rhythm on radiation monitor at time of assessment. Patient on HiFlow nasal cannula, 60L, FIO2 50%. Objective vital signs Vital Sign Date Time Temp Pulse Resp B/P (MAP) Pulse Ox O2 Delivery O2 Flow Rate FiO2 01/27/24 12:20 98 16 96 60.0 50 01/27/24 10:39 122/78 01/27/24 10:00 Hi-Flow Heated NC+ 01/27/24 08:00 98.5 98.5 Total Intake and Output 01/26/24 01/26/24 01/27/24 15:00 23:00 07:00 Intake Total 404 ml 116 ml 504 ml Balance 404 ml 116 ml 504 ml medications Current Medications Medications Dose Ordered Sig/Kat Route Start Time Stop Time Status Last Admin Dose Admin Dextrose 50 ml UD PRN IV 01/24/24 18:15 Aspirin 81 mg DAILY PO 01/25/24 10:00 01/27/24 10:38 81 MG Atorvastatin Calcium 40 mg HS PO 01/24/24 22:00 01/26/24 21:33 40 MG Morphine Sulfate 2 mg Q30MP PRN IV 01/24/24 18:15 Acetaminophen 650 mg Q6HP PRN PO 01/24/24 18:15 Docusate Sodium 100 mg DAILY PO 01/25/24 10:00 01/27/24 10:38 100 MG Ondansetron HCl 4 mg Q4HP PRN IV 01/24/24 18:15 Nitroglycerin 0.4 mg Q5MINP PRN SL 01/24/24 18:15 Albuterol 2.5 mg Q4HR NEB 01/24/24 22:00 01/27/24 09:29 2.5 MG Methylprednisolone Sodium Succinate 40 mg BID IV 01/24/24 22:00 01/27/24 10:40 40 MG Ceftriaxone Sodium 50 ml @ 100 mls/hr DAILY@09 IV 01/25/24 09:00 01/27/24 09:09 100 MLS/HR Azithromycin 250 ml @ 125 mls/hr DAILY IV 01/25/24 10:00 01/27/24 10:38 125 MLS/HR Furosemide 20 mg DAILY IV 01/27/24 10:00 01/27/24 10:39 20 MG Heparin Sodium/ Dextrose 250 ml @ 11 mls/hr [id number] IV 01/27/24 08:30 01/27/24 08:44 11 MLS/HR Insulin Human Regular MILD SLIDING SCALE ACHS SC 01/27/24 17:00 Diagnostic Test (Pha) 1 strip ACHS 01/27/24 17:00 Examination: GENERAL:Normal, LUNGS:Abnormal (Diminished bilateral lower lobes), CVS:Normal, NEURO:Normal laboratory and microbiology Laboratory Tests 01/27/24 03:30 01/26/24 02:44 Test 01/27/24 03:30 Range/Units Serum Glucose 143 H 74-106 mg/dL Problem List/Assessment/Plan Problem List/Assessment/Plan Bilateral pulmonary emboli with evidence of right heart strain NSTEMI type II secondary to above [id number] tricuspid valve regurgitation Acute on chronic hypoxic respiratory failure Hx of PE in 2008, off Xarelto x 1 mo. Asthma exacerbation Acute kidney injury Suboptimal medical therapy Medication noncompliance Plan/Recommendation (Dr. Neely) Transthoracic echocardiogram reveals EF 55%, RVSP [address] angio chest with contrast revealed bilateral pulmonary emboli with evidence of right heart strain. Patient was initiated on a heparin drip. Patient continues on Hiflow nasal cannula with oxygen requirement at 60L, FIO2 50%. O2 saturations maintaining 92-93% on monitor. Following daily to re-evaluate for the need for possible thrombectomy. Thank you for allowing us to care for this patient. Please call with any questions or concerns. Critical care time: 40 min. This medical document was created using an electronic medical record system with voice recognition software and computerized dictation system. Although this document has been carefully reviewed, there might still be some phonetic and typographical errors. Occasional wrong-word or ``sound-alike substitutions may have occurred due to the inherent limitations of voice recognition software. These areas are purely typographical due to imperfections of the software programs and do not reflect any compromise in the patient's medical care. Please read the chart carefully and recognize, using context, where these substitutions have occurred. Plan discussed with: Patient, Other (Bedside RN) Date of Service: Jan 27, 2024 Billing Provider: SUSY NEELY MD Cardiology Common Codes: [id number] CARE 30-74 MIN RASHI SOLANO [employer]ER Jan 27, 2024 13:13
[2024-01-27 13:45] LABS: INR 1.06 (0.9-1.15); Prothrombin Time 11.2 sec (9.3-11.8)
[2024-01-27] MEDS: ACCU-CHEK COMFORT CURVE STRIP VI SCH (17:08)
[2024-01-27] MEDS: InsuLIN REG 1unit/0.01ml Soln (100units/ml) SC SCH ×2 (17:17→22:19)
[2024-01-27 19:41] LABS: INR 1.08 (0.9-1.15); Partial Thromboplastin Time 51.9 SEC (24.5-34.5); Prothrombin Time 11.4 sec (9.3-11.8)
[2024-01-28] VITALS (76 sets, daily range): BP systolic 104–154; BP diastolic 64–109; PULSE 84–106; RESP 10–24; TEMP 98–99.2; O2SAT 88–97
[2024-01-28] MEDS: MELATONIN 5 MG TAB PO PRN (00:05)
[2024-01-28 01:12] LABS: INR 1.08 (0.9-1.15); Partial Thromboplastin Time 50.7 SEC (24.5-34.5); Prothrombin Time 11.4 sec (9.3-11.8)
[2024-01-28] MEDS ORDERED: ACET-1304 PO (01:12)
[2024-01-28] MEDS ORDERED: FLUO1TAB14 PO (02:20)
[2024-01-28] MEDS ORDERED: RIVSET PO (02:20)
[2024-01-28 05:10] LABS: Basophils # (auto) 0 10 ^3/uL (0-0.2); Eosinophils # (auto) 0 10 ^3/uL (0-0.8); Hemoglobin 15.3 g/dL (12.2-16.2); Lymphocytes # (auto) 0.3 10 ^3/uL (0.4-5.4); Monocytes # (auto) 0.3 10 ^3/uL (0-1.3); Nucleated Red Blood Cells % 0.2 %
[2024-01-28 05:12] LABS: Basophils % (auto) 0.2 % (0.0-2.0); Hematocrit 45.1 % (36.0-46.0); Lymphocytes % (auto) 4.1 % (10.0-50.0); Mean Corpuscular Hemoglobin 34.3 pg (28.0-32.0); Mean Corpuscular Hgb Conc. 33.9 g/dL (32.0-36.0); Mean Corpuscular Volume 101.1 fL (80.0-100.0); Monocytes % (auto) 3.5 % (0.0-12.0); Neutrophils # (auto) 6.9 10 ^3/uL (1.6-8.6); Neutrophils % (auto) 92.2 % (37.0-80.0); Platelet Count (auto) 258 10^3/uL (140-450); Red Blood Cells 4.46 10^6/uL (4.0-5.20); Red Cell Distribution Width 15.3 % (11.8-14.3); White Blood Cell 7.5 10^3/uL (4.4-10.8)
[2024-01-28 05:33] LABS: Alanine Aminotransferase 17 U/L (7-40); Albumin 3.8 g/dL (3.2-4.8); Alkaline Phosphatase 65 U/L (46-116); Anion Gap 9 (5-15); Aspartate Aminotransferase 15 U/L (13-40); Carbon Dioxide 31 mmol/L (20-31); Chloride 100 mmol/L (98-107); Magnesium 1.8 mg/dL (1.6-2.6); Potassium 4.3 mmol/L (3.5-5.1); Sodium 140 mmol/L (136-145)
[2024-01-28 05:34] LABS: Bilirubin, Total 0.6 mg/dL (0.2-1.0)
[2024-01-28 05:45] LABS: Blood Urea Nitrogen 32 mg/dL (9-23); Glucose 142 mg/dL (74-106)
--- NOTE | 2024-01-28 05:54 | DVH ---
CHEST RADIOGRAPH Indication: Follow up onrespiratory distress. Technique: Single frontal view of the chest was obtained Comparison: XY CHEST PORTABLE on DOS: 01/26/24, XY CHEST PORTABLE on DOS: 01/24/24 IMPRESSION: There is enlargement of the cardiac silhouette and pulmonary arteries. The right lung appears clear. Obscuration of the left hemidiaphragm May relate to effusion or atelectasis, consolidation. No pneum othorax. Similar appearance to prior examination.
--- NOTE | 2024-01-28 08:47 | DVHPN2 ---
Consult Progress Note Date Seen: Jan 28, 2024 Subjective Review of Systems: CVS:Normal, RESPIRATORY:Normal, NEURO:Normal Objective vital signs Vital Sign Date Time Temp Pulse Resp B/P (MAP) Pulse Ox O2 Delivery O2 Flow Rate FiO2 01/28/24 08:11 134/84 01/28/24 08:00 12 95 Hi-Flow Heated NC+ 60 50 50 01/28/24 08:00 95 01/28/24 04:00 98.4 98.4 Total Intake and Output 01/27/24 01/27/24 01/28/24 15:00 23:00 07:00 Intake Total 388 ml 577 ml 188 ml Output Total 200 ml Balance 388 ml 577 ml -12 ml medications Current Medications Medications Dose Ordered Sig/Kat Route Start Time Stop Time Status Last Admin Dose Admin Dextrose 50 ml UD PRN IV 01/24/24 18:15 Aspirin 81 mg DAILY PO 01/25/24 10:00 01/28/24 08:10 81 MG Atorvastatin Calcium 40 mg HS PO 01/24/24 22:00 01/27/24 21:52 40 MG Morphine Sulfate 2 mg Q30MP PRN IV 01/24/24 18:15 Acetaminophen 650 mg Q6HP PRN PO 01/24/24 18:15 01/27/24 12:42 650 MG Docusate Sodium 100 mg DAILY PO 01/25/24 10:00 01/28/24 08:10 100 MG Ondansetron HCl 4 mg Q4HP PRN IV 01/24/24 18:15 Nitroglycerin 0.4 mg Q5MINP PRN SL 01/24/24 18:15 Albuterol 2.5 mg Q4HR NEB 01/24/24 22:00 01/28/24 06:12 2.5 MG Methylprednisolone Sodium Succinate 40 mg BID IV 01/24/24 22:00 01/28/24 08:10 40 MG Ceftriaxone Sodium 50 ml @ 100 mls/hr DAILY@09 IV 01/25/24 09:00 01/28/24 08:10 100 MLS/HR Azithromycin 250 ml @ 125 mls/hr DAILY IV 01/25/24 10:00 01/28/24 08:11 125 MLS/HR Furosemide 20 mg DAILY IV 01/27/24 10:00 01/28/24 08:11 20 MG Heparin Sodium/ Dextrose 250 ml @ 11 mls/hr [id number] IV 01/27/24 08:30 01/28/24 03:53 11 MLS/HR Diagnostic Test (Pha) 1 strip ACHS 01/27/24 17:00 01/28/24 06:35 1 STRIP Melatonin 5 mg HS PRN PO 01/27/24 22:00 01/28/24 00:05 5 MG Insulin Human Regular ACHS SC 01/27/24 22:00 01/28/24 06:44 2 UNITS Examination: LUNGS:Abnormal (Diminished. High-flow O2 at 50L at 60%), CVS:Normal (NSR), NEURO:Normal laboratory and microbiology Laboratory Tests 01/28/24 04:44 Test 01/28/24 04:44 Range/Units Serum Glucose 142 H 74-106 mg/dL Problem List/Assessment/Plan Problem List/Assessment/Plan NSTEMI with bilateral pulmonary emboli with evidence of RV strain, S1T3 pattern Acute on chronic hypoxic respiratory failure Left lung pneumonia Hx of PE in 2008, off Xarelto x 1 mo. Asthma exacerbation Acute kidney injury Pre-diabetes, newly diagnosed Suboptimal medical therapy Plan/Recommendation (Dr. Neely) Transthoracic echocardiogram revealed EF 55% with a moderately dilated right ventricle, moderate/severe reduced right ventricular systolic function, and RVSP at 65 mmHg. The patient with a history of PE stopped Xarelto therapy approximately a month ago. She now presents with bilateral PE R>L with evidence of heart strain as well as PNA. Continues of high-flow O2 currently on 50L at 60% with O2 Saturations at 92-94%. Continue heparin drip per pharmacy protocol. ABX therapy per primary care team. Following daily to re-evaluate for the need for possible thrombectomy. Thank you for allowing us to participate in this patient's care. Please call if you have any questions or concerns. Critical care time: 30 min. This medical document was created using an electronic medical record system with voice recognition software and computerized dictation system. Although this document has been carefully reviewed, there might still be some phonetic and typographical errors. Occasional wrong-word or ``sound-alike substitutions may have occurred due to the inherent limitations of voice recognition software. These areas are purely typographical due to imperfections of the software programs and do not reflect any compromise in the patient's medical care. Please read the chart carefully and recognize, using context, where these substitutions have occurred. Plan discussed with: Patient, Other Date of Service: Jan 28, 2024 Billing Provider: SUSY NEELY MD Cardiology Common Codes: [id number] CARE 30-74 MIN [facility] Jan 28, 2024 08:46
--- NOTE | 2024-01-28 13:20 | DVHPN2 ---
Subjective Continue decreasing SOB and chest tightness Reviewed: Care Plan, H&P, Labs, Medications, Previous Orders, Radiology, Other (Consultation) Changes from previous H/P or p: Changes Objective Vitals Vital Signs Date Time Temp Pulse Resp B/P (MAP) Pulse Ox O2 Delivery O2 Flow Rate FiO2 01/28/24 11:47 95 01/28/24 11:47 16 95 Hi-Flow Heated NC+ 60 50 50 01/28/24 11:45 138/85 (102) 01/28/24 08:00 99.2 99.2 Intake/Output Intake and Output 01/28/24 07:00 Intake Total 1153 ml Output Total 200 ml Balance 953 ml Intake Oral 600 ml IV Total 553 ml Output Urine Total 200 ml # Voids 3 General Appearance: Alert, Oriented X3, Cooperative, moderate distress HEENT: Atraumatic Lungs: Other (Decreased air entry bilateral) Cardiovascular: Normal S1, Normal S2, Other (Tachycardia) Abdomen: Normal bowel sounds, Soft, No tenderness Neuro: Normal speech, Cranial nerves 3-12 NL Psych/Mental Status: Mental status NL, Mood NL Medications Current Medications Medications Dose Ordered Sig/Kat Route Start Time Stop Time Status Last Admin Dose Admin Dextrose 50 ml UD PRN IV 01/24/24 18:15 Aspirin 81 mg DAILY PO 01/25/24 10:00 01/28/24 08:10 81 MG Atorvastatin Calcium 40 mg HS PO 01/24/24 22:00 01/27/24 21:52 40 MG Morphine Sulfate 2 mg Q30MP PRN IV 01/24/24 18:15 Acetaminophen 650 mg Q6HP PRN PO 01/24/24 18:15 01/27/24 12:42 650 MG Docusate Sodium 100 mg DAILY PO 01/25/24 10:00 01/28/24 08:10 100 MG Ondansetron HCl 4 mg Q4HP PRN IV 01/24/24 18:15 Nitroglycerin 0.4 mg Q5MINP PRN SL 01/24/24 18:15 Albuterol 2.5 mg Q4HR NEB 01/24/24 22:00 01/28/24 09:48 2.5 MG Methylprednisolone Sodium Succinate 40 mg BID IV 01/24/24 22:00 01/28/24 08:10 40 MG Ceftriaxone Sodium 50 ml @ 100 mls/hr DAILY@09 IV 01/25/24 09:00 01/28/24 08:10 100 MLS/HR Azithromycin 250 ml @ 125 mls/hr DAILY IV 01/25/24 10:00 01/28/24 08:11 125 MLS/HR Furosemide 20 mg DAILY IV 01/27/24 10:00 01/28/24 08:11 20 MG Heparin Sodium/ Dextrose 250 ml @ 11 mls/hr [id number] IV 01/27/24 08:30 01/28/24 03:53 11 MLS/HR Diagnostic Test (Pha) 1 strip ACHS 01/27/24 17:00 01/28/24 11:44 1 STRIP Melatonin 5 mg HS PRN PO 01/27/24 22:00 01/28/24 00:05 5 MG Insulin Human Regular ACHS SC 01/27/24 22:00 01/28/24 11:45 2 UNITS Laboratory Results Laboratory Tests 01/28/24 04:44 Chemistry Test 01/28/24 04:44 Albumin 3.8 g/dL (3.2-4.8) Calcium Level 10.0 mg/dL (8.7-10.4) Magnesium Level 1.8 mg/dL (1.6-2.6) Total Protein 6.0 g/dL (5.7-8.2) Coagulation Test 01/27/24 19:03 01/28/24 00:49 Prothrombin Time 11.4 sec (9.3-11.8) 11.4 sec (9.3-11.8) Prothrombin Time INR 1.08 (0.9-1.15) 1.08 (0.9-1.15) Activated Partial Thromboplast Time 51.9 SEC (24.5-34.5) H 50.7 SEC (24.5-34.5) H LFT Test 01/28/24 04:44 Alanine Aminotransferase (ALT) 17 U/L (7-40) Alkaline Phosphatase 65 U/L (46-116) Aspartate Amino Transferase (AST) 15 U/L (13-40) Total Bilirubin 0.6 mg/dL (0.2-1.0) Microbiology Microbiology Date/Time Source Procedure Growth Status 01/26/24 15:06 Nose MRSA Screen - Final Complete Labs and/or images reviewed: Labs reviewed by me, Image(s) reviewed by me Assessment/Plan Assessment/Plan A 64-year-old female patient; with multiple comorbidities; who presented to emergency department with SOB and chest tightness. #Acute hypoxic respiratory failure due to bilateral pulmonary emboli; reviewed the available imaging studies and ABGs; continue oxygen therapy as needed; now on high-flow nasal cannula FiO2 of 50%; was on BiPAP; continue close monitoring #Submassive bilateral pulmonary emboli with RV strain in the setting of history of pulmonary embolism 2008; causing SOB and chest tightness; stopped Xarelto last month; continue heparin infusion; cardiology is following; reviewed chest angiogram and echocardiogram; no DVTs; continue close monitoring #Chest tightness with NSTEMI type 2; demand ischemia; the setting of RV strain secondary to submassive bilateral pulmonary emboli; telemetry; continue aspirin and statin; cardiology is following; continue close monitoring #Essential hypertension; continue antihypertensive medications as indicated; continue monitoring #Hyperglycemia; prediabetic; continue insulin sliding scale and hypoglycemia protocol; continue monitoring #Asthma exacerbation; continue IV steroids with IV antibiotics; continue oxygen therapy as above; continue monitoring #Metabolic syndrome with prediabetes and dyslipidemia along with overweight/obesity; counseled the patient on the importance of adopting healthy lifestyle with diet and exercise in order to lose weight #Dyslipidemia; continue statin; reviewed lipid profile; continue monitoring #Prediabetes; hemoglobin A1c of 6.1%; management as above; continue monitoring #CURRY; most likely vasomotor nephropathy in the setting of submassive bilateral pulmonary emboli and RV strain; avoid nephrotoxic agents; continue monitoring #Macrocytosis without anemia; to investigate as outpatient; continue monitoring #Low TSH; free T4 pending; continue monitoring 45 minutes of critical care time This medical document was created using an electronic medical record system with computerized dictation system. Although this document has been carefully reviewed, there might still be some phonetic and typographical errors. These areas are purely typographical due to imperfections of the software programs, and do not reflect any compromise in the patient's medical care. Plan discussed with: Patient, Other (Nurse) My Orders Orders - VINOD WALTER MD Procedure Category Date Status Time PTPTT LAB 01/29/24 Verified 04:00 Complete Blood Count LAB 01/29/24 Verified 04:00 Heparin Per Pharmacy JENNI 01/28/24 In Process Protocol 08:36 Basic Metabolic Panel LAB 01/29/24 Verified 04:00 Complete Blood Count LAB 01/30/24 Verified 05:00 Complete Blood Count LAB 01/31/24 Verified 05:00 Complete Blood Count LAB 02/01/24 Verified 05:00 Complete Blood Count LAB 02/02/24 Verified 05:00 Date of Service: Jan 28, 2024 Billing Provider: VINOD WALTER MD Common Visit Codes: [id number] CARE 30-74 MIN (45 minutes) VINOD WALTER MD Jan 28, 2024 13:20
--- NOTE | 2024-01-28 23:32 | DVHINCON2 ---
Date of service: Jan 28, 2024 Referring Physician James Schulz MD Reason for Consultation Dyspnea, Acute hypoxic respiratory failure, pulmonary emboli w/ RV strain, asthma exacerbation History of Present Illness A 64-year-old woman with PMHx of asthma and hypertension who presented to the ED on 01/24/24 with c/o shortness of breath. Patient was placed on NRB for sats in the high 80s, then placed on NRB for increased WOB. Patient reports she was camping 5 days ago and her shortness of breath occurred before the camping trip in [facility]. Patient's reports that he found her face down on the floor but was conscious. Patient reports she is frequently in and out of the hospital for her asthma. She does not use oxygen at home. She is compliant with her medications. Denies chest pain, fever, chills, abdominal pain, or weakness. Patient was admitted for further care and pulmonary consultation is requested for evaluation and management d/t above findings. Review of Systems: 14-point review of systems negative unless otherwise noted above. Past Medical History: HTN, asthma Past Surgical History: Medications: Reviewed. Allergies: No known drug allergies. Family History: No family history of premature CAD. No family history of lung disorders. Social History: Ex-smoker. Reports a remote history of tobacco use, quit over 30 years ago No alcohol or illicit drug use. Family History: Patient reports no known family medical history. Allergies: Coded Allergies: NO KNOWN ALLERGIES (Unverified , 03/24/22) Home Meds Active Scripts Mometasone Furoate-Formoterol (Dulera) 1 Aer Aer, 2 PUFF INH BID, #13 GRAMS 2 Refills Prov:CHELLY GUERRERO MD 12/26/23 Fluticasone Propionate (Nasal) (Fluticasone Propionate) 50 Mcg/Act Spr, 50 MCG NA BID for 30 Days, #2 SPR Prov:CHELLY GUERRERO MD 12/26/23 Prednisone (Prednisone) 20 Mg Tab, 40 MG PO DAILY for 13 Days, #26 TAB Take 2 pills once daily for 5 days in case of exacerbation Prov:CHELLY GUERRERO MD 12/26/23 Montelukast Sodium (Singulair) 10 Mg Tab, 10 MG PO HS for 30 Days, #30 TAB 1 Refill Prov:CHELLY GUERRERO MD 12/26/23 Famotidine (Famotidine) 20 Mg Tab, 20 MG PO DAILY for 30 Days, #30 TAB 1 Refill Prov:CHELLY GUERRERO MD 12/26/23 Reported Medications Rivaroxaban (Xarelto) 10 Mg Tab, 10 MG PO, TAB 01/28/24 Fluoxetine HCl (Pmdd) (Fluoxetine HCl) 20 Mg Tab, 20 PO, TAB 01/28/24 Acetaminophen (Tylenol Extra Strength) 500 Mg Tab, 500 MG PO, TAB 01/28/24 Quetiapine Fumerate (QUETIAPINE FUMARATE) 300 Mg Tab, 600 MG PO HS, TAB 12/24/23 Amlodipine Besylate (Amlodipine Besylate) 5 Mg Tab, 1 TAB PO DAILY 12/24/23 Hctz (Hydrochlorothiazide) 25 Mg Tab, 1 TAB PO DAILY 12/24/23 Vital Signs Vital Signs Date Time Temp Pulse Resp B/P (MAP) Pulse Ox O2 Delivery O2 Flow Rate FiO2 01/28/24 22:03 93 20 93 55.0 50 01/28/24 22:00 Hi-Flow Heated NC+ 01/28/24 18:00 133/76 (95) 01/28/24 15:30 98.7 98.7 Physical Exam Gen.: Patient lying in bed in no apparent distress. On supplemental oxygen. Head: Normocephalic, atraumatic. Eyes: EOMI/PERRLA. Ears: Normal hearing. Normal anatomy. Neck/trachea: Trachea midline, supple. Nose: Normal external anatomy. Mouth: Moist mucous membranes. Chest: Decreased air entry bilaterally. No wheezing or rhonchi. Cardiovascular: Positive S1, positive S2. Regular rate and rhythm. Abdomen: Positive bowel sounds in all 4 quadrants. Soft, non-tender, non- distended. : Deferred. Rectal: Deferred. Skin: Warm, dry. Intact. Extremities: 2+ radial pulses bilaterally. No lower extremity edema. Neuro: Awake, alert, oriented x3. No gross motor or sensory deficits. Cranial nerves II through XII intact. Gait not assessed. Labs/Diagnostic Data Labs Test 01/28/24 21:15 01/28/24 04:44 01/28/24 00:49 01/27/24 09:04 Range/Units POC Glucose 121 H 70-106 mg/dl White Blood Count 7.5 4.4-10.8 10^3/uL Red Blood Count 4.46 4.0-5.20 10^6/uL Hemoglobin 15.3 12.2-16.2 g/dL Hematocrit 45.1 36.0-46.0 % Mean Corpuscular Volume 101.1 H 80.0-100.0 fL Mean Corpuscular Hemoglobin 34.3 H 28.0-32.0 pg Mean Corpuscular Hemoglobin Concent 33.9 32.0-36.0 g/dL Red Cell Distribution Width 15.3 H 11.8-14.3 % Platelet Count 258 140-450 10^3/uL Mean Platelet Volume 8.8 6.9-10.8 fL Neutrophils (%) (Auto) 92.2 H 37.0-80.0 % Lymphocytes (%) (Auto) 4.1 L 10.0-50.0 % Monocytes (%) (Auto) 3.5 0.0-12.0 % Eosinophils (%) (Auto) 0.0 0.0-7.0 % Basophils (%) (Auto) 0.2 0.0-2.0 % Neutrophils # (Auto) 6.9 1.6-8.6 10 ^3/uL Lymphocytes # (Auto) 0.3 L 0.4-5.4 10 ^3/uL Monocytes # (Auto) 0.3 0-1.3 10 ^3/uL Eosinophils # (Auto) 0 0-0.8 10 ^3/uL Basophils # (Auto) 0 0-0.2 10 ^3/uL Nucleated Red Blood Cells 0.2 % Sodium Level 140 136-145 mmol/L Potassium Level 4.3 3.5-5.1 mmol/L Chloride Level 100 98-107 mmol/L Carbon Dioxide Level 31 20-31 mmol/L Anion Gap 9 5-15 Blood Urea Nitrogen 32 H 9-23 mg/dL Creatinine 1.00 0.550-1.02 mg/dL Glomerular Filtration Rate Calc 63 >90 mL/min BUN/Creatinine Ratio 32.0 H 10.0-20.0 Serum Glucose 142 H 74-106 mg/dL Calcium Level 10.0 8.7-10.4 mg/dL Magnesium Level 1.8 1.6-2.6 mg/dL Total Bilirubin 0.6 0.2-1.0 mg/dL Aspartate Amino Transferase (AST) 15 13-40 U/L Alanine Aminotransferase (ALT) 17 7-40 U/L Alkaline Phosphatase 65 46-116 U/L Total Protein 6.0 5.7-8.2 g/dL Albumin 3.8 3.2-4.8 g/dL Prothrombin Time 11.4 9.3-11.8 sec Prothrombin Time INR 1.08 0.9-1.15 Activated Partial Thromboplast Time 50.7 H 24.5-34.5 SEC Blood Gas Specimen Type Arterial Blood Gas Sample Site Right radial Blood Gas Patient Temperature 37.0 Arterial Blood Date Drawn [id number] Arterial Blood pH 7.412 7.350-7.450 Arterial Blood Partial Pressure CO2 49.7 H 32.0-45.0 mmHg Arterial Blood Partial Pressure O2 86.3 83.0-108.0 mmHg Arterial Blood HCO3 30.9 H 21.0-28.0 mmol/L Arterial Blood Oxygen Saturation 95.8 94.0-98.0 % Arterial Blood Base Excess 5.1 H -2.0-3.0 mmol/L Arterial Blood Oxyhemoglobin 94.6 94.0-98.0 % Arterial Blood Carboxyhemoglobin 1.0 0.5-1.5 % Arterial Blood Methemoglobin 0.3 0.0-1.5 % Ashish Test Yes Blood Gas Total Hemoglobin 15.50 12.0-16.0 g/dL Blood Gas Liter Flow 60.00 Blood Gas Modality High flow FiO2 % 60.0 Test 01/26/24 02:44 01/25/24 10:49 01/25/24 10:15 01/25/24 08:55 Range/Units Free Thyroxine (T4) Calculated 1.06 0.89-1.76 ng/dL Differential Total Cells Counted 100.0 100 Neutrophils % (Manual) 78 37.0-80.0 Band Neutrophils % (Manual) 0 Lymphocytes % (Manual) 14 10.0-50.0 Monocytes % (Manual) 8 0-12 Eosinophils % (Manual) 0 0-7 Basophils % (Manual) 0 0.0-2.0 Metamyelocytes % (manual) 0 Myelocytes % (Manual) 0 Promyelocytes % (Manual) 0 Blast Cells % (Manual) 0 Reactive Lymphocytes 0 Platelet Estimate Adequate Influenza Type A Antigen Negative Negative Influenza Type B Antigen Negative Negative SARS-CoV-2 Antigen (Rapid) Negative NEGATIVE Troponin I High Sensitivity 533 *H </=34 ng/L Test 01/25/24 06:20 01/25/24 03:51 01/24/24 16:21 Range/Units Blood Gas Critical Value Read Back Yes Blood Gas Notified [employer] barron Blood Gas Notified Time [id number] Blood Gas Notified By [employer] [email or web address] Hemoglobin A1c 6.1 H <5.7 % A1C B-Type Natriuretic Peptide 747.58 0-100 pg/mL Triglycerides Level 96 < 150 mg/dL Cholesterol Level 195 < 200 mg/dL LDL Cholesterol 95 < 100 mg/dL HDL Cholesterol 80 H 40-59 mg/dL Thyroid Stimulating Hormone (TSH) 0.42 L 0.55-4.78 uIU/mL Venous Blood pH 7.359 7.320-7.430 Venous Blood pCO2 at Patient Temp 47.9 38.0-54.0 mmHg Venous Blood pO2 at Patient Temp 54.8 H 23.0-48.0 mmHg Venous Blood HCO3 26.4 22.0-29.0 mmol/L Venous Blood Base Excess 0.3 -2.0-3.0 mmol/L Blood Gas Set Respiration Rate 12.0 Blood Gas Pressure Support 7 Blood Gas EPAP 5 Blood Gas IPAP 12 Microbiology Date/Time Source Procedure Growth Status 01/28/24 00:00 Nose MRSA Screen - Final Complete Assessment Impression: Acute hypoxic respiratory failure Pulmonary emboli w/ RV strain Asthma exacerbation Atelectasis. Hx of nicotine dependence Obesity, BMI 35.3 Plan: Supplemental oxygen On high flow O2 at flow rate 50 LPM , FiO2 50%. Titrate to keep O2 sats above 92%. Taper O2 as tolerated. Continue bronchodilators. Continue antibiotics IV steroids Heparin drip. Monitor renal function. Monitor electrolytes. Supplement as necessary. Monitor ins and outs. DVT prophylaxis. Prognosis: Poor given patient's multiple co-morbidities. Condition: Critical Rest of plan per hospitalist and other consultants. A total of 36 minutes of critical care time was spent reviewing the patient record, examining the patient, making a diagnostic and therapeutic plan, discussing this plan with the medical personnel, following up on diagnostic studies and following the patient for clinical stability excluding any and all procedures. At least 50% of this time was spent in direct, [id number] contact. Thank you Dr. James Schulz MD, for allowing me to participate in this patient's care. Further recommendations will depend on the patient's clinical course. Please do not hesitate to contact me if you have any questions or concerns. This medical document was created using an electronic medical record system with [employer] dictation system. Although these documentations are being carefully reviewed, there may still be some phonetic and typographical changes. The errors are purely typographical, due to imperfection on the software program, and do not reflect any compromise in the patient's medical care. Plan discussed with: Patient, Other (KIM Carrasco MD) LEV TORRES MD Jan 28, 2024 23:32
[2024-01-29] VITALS (30 sets, daily range): BP systolic 109–140; BP diastolic 52–91; PULSE 75–103; RESP 11–22; TEMP 97.8–98.8; O2SAT 87–97
[2024-01-29 04:33] LABS: Basophils # (auto) 0 10 ^3/uL (0-0.2); Basophils % (auto) 0.3 % (0.0-2.0); Eosinophils # (auto) 0 10 ^3/uL (0-0.8); Hematocrit 46.7 % (36.0-46.0); Hemoglobin 15.4 g/dL (12.2-16.2); Lymphocytes # (auto) 0.3 10 ^3/uL (0.4-5.4); Lymphocytes % (auto) 3.5 % (10.0-50.0); Mean Corpuscular Hemoglobin 33.3 pg (28.0-32.0); Mean Corpuscular Volume 101.1 fL (80.0-100.0); Monocytes # (auto) 0.4 10 ^3/uL (0-1.3); Monocytes % (auto) 4.9 % (0.0-12.0); Neutrophils # (auto) 6.8 10 ^3/uL (1.6-8.6); Neutrophils % (auto) 91.3 % (37.0-80.0); Nucleated Red Blood Cells % 0.1 %; Platelet Count (auto) 263 10^3/uL (140-450); Red Blood Cells 4.62 10^6/uL (4.0-5.20); Red Cell Distribution Width 15.2 % (11.8-14.3); White Blood Cell 7.5 10^3/uL (4.4-10.8)
[2024-01-29 04:46] LABS: Chloride 101 mmol/L (98-107); Potassium 4.6 mmol/L (3.5-5.1); Sodium 141 mmol/L (136-145)
[2024-01-29 04:47] LABS: Anion Gap 7 (5-15); Calcium 9.8 mg/dL (8.7-10.4)
[2024-01-29 04:49] LABS: INR 1.09 (0.9-1.15); Partial Thromboplastin Time 56.4 SEC (24.5-34.5); Prothrombin Time 11.5 sec (9.3-11.8)
[2024-01-29 04:52] LABS: BUN/Creatinine Ratio 29.3 (10.0-20.0)
[2024-01-29 04:59] LABS: Blood Urea Nitrogen 29 mg/dL (9-23); Carbon Dioxide 33 mmol/L (20-31); Glucose 148 mg/dL (74-106)
[2024-01-29 06:09] LABS: Base Excess 5.5 mmol/L (-2.0-3.0)
--- NOTE | 2024-01-29 07:59 | DVH ---
CLINICAL INFORMATION: 64 years old, Female; Follow up on acute respiratory failure. TECHNIQUE: Single AP portable chest radiograph was obtained. COMPARISON: XY CHEST PORTABLE on DOS: 01/28/24, XY CHEST PORTABLE on DOS: 01/26/24, XY CHEST PORTABLE on DOS: 01/24/24 FINDINGS: Change cardiomegaly and prominence of the pulmonary vasculature, similar to the prior exam. No focal consolidation. No other significant interval change. IMPRESSION: 1. Cardiomegaly and prominence of the pulmonary vasculature May suggest a degree of pulmonary vascula r congestion in the appropriate clinical setting. 2. No focal consolidation.
--- NOTE | 2024-01-29 11:03 | MEDREC ---
[facility] Intervention Section I [facility] Intervention: Review courses of therapy (PLEASE CONSIDER D/C ANTIBIOTIC(S) IN ABSENCE OF BACTERIAL INFECTION) CANDICE CONTEH PHARMACIST Jan 29, 2024 11:03
--- NOTE | 2024-01-29 13:05 | DVHPN2 ---
Consult Progress Note Date Seen: Jan 29, 2024 Subjective Patient reports: Feels better Review of Systems: CVS:Normal, RESPIRATORY:Normal, NEURO:Normal Objective vital signs Vital Sign Date Time Temp Pulse Resp B/P (MAP) Pulse Ox O2 Delivery O2 Flow Rate FiO2 01/29/24 09:56 88 17 94 50.0 45 01/29/24 09:32 138/79 01/29/24 08:00 Hi-Flow Heated NC+ 01/29/24 04:00 97.8 97.8 Total Intake and Output 01/28/24 01/28/24 01/29/24 15:00 23:00 07:00 Intake Total 438 ml 377 ml 649 ml Output Total 804 ml 477 ml Balance 438 ml -427 ml 172 ml medications Current Medications Medications Dose Ordered Sig/Kat Route Start Time Stop Time Status Last Admin Dose Admin Dextrose 50 ml UD PRN IV 01/24/24 18:15 Aspirin 81 mg DAILY PO 01/25/24 10:00 01/29/24 09:33 81 MG Atorvastatin Calcium 40 mg HS PO 01/24/24 22:00 01/28/24 21:06 40 MG Morphine Sulfate 2 mg Q30MP PRN IV 01/24/24 18:15 Acetaminophen 650 mg Q6HP PRN PO 01/24/24 18:15 01/28/24 17:22 650 MG Docusate Sodium 100 mg DAILY PO 01/25/24 10:00 01/29/24 09:37 100 MG Ondansetron HCl 4 mg Q4HP PRN IV 01/24/24 18:15 Nitroglycerin 0.4 mg Q5MINP PRN SL 01/24/24 18:15 Albuterol 2.5 mg Q4HR NEB 01/24/24 22:00 01/29/24 09:55 2.5 MG Methylprednisolone Sodium Succinate 40 mg BID IV 01/24/24 22:00 01/29/24 09:32 40 MG Ceftriaxone Sodium 50 ml @ 100 mls/hr DAILY@09 IV 01/25/24 09:00 01/29/24 08:33 100 MLS/HR Azithromycin 250 ml @ 125 mls/hr DAILY IV 01/25/24 10:00 01/29/24 09:32 125 MLS/HR Furosemide 20 mg DAILY IV 01/27/24 10:00 12/1/24 09:32 20 MG Heparin Sodium/ Dextrose 250 ml @ 11 mls/hr [id number] IV 01/27/24 08:30 01/29/24 00:13 11 MLS/HR Diagnostic Test (Pha) 1 strip ACHS 01/27/24 17:00 01/28/24 21:17 1 STRIP Melatonin 5 mg HS PRN PO 01/27/24 22:00 01/28/24 00:05 5 MG Insulin Human Regular ACHS SC 01/27/24 22:00 01/29/24 06:34 2 UNITS Examination: LUNGS:Abnormal (On high-flow O2 at 50L with FiO2 at 40%), CVS:Normal, NEURO:Normal laboratory and microbiology Laboratory Tests 01/29/24 04:20 Test 01/29/24 04:20 Range/Units Serum Glucose 148 H 74-106 mg/dL Problem List/Assessment/Plan Problem List/Assessment/Plan NSTEMI with bilateral pulmonary emboli with evidence of RV strain, S1T3 pattern Acute on chronic hypoxic respiratory failure Left lung pneumonia Hx of PE in 2008, off Xarelto x 1 mo. Asthma exacerbation Acute kidney injury Pre-diabetes, newly diagnosed Suboptimal medical therapy Plan/Recommendation (Dr. Neely) Transthoracic echocardiogram revealed EF 55% with a moderately dilated right ventricle, moderate/severe reduced right ventricular systolic function, and RVSP at 65 mmHg. The patient with a history of PE stopped Xarelto therapy approximately a month ago. She now presents with bilateral PE R>L with evidence of heart strain as well as PNA. Continues of high-flow O2 currently on 50L at 40% with O2 Saturations at 92-94%. Continue heparin drip per pharmacy protocol. ABX therapy per primary care team. Following daily to re-evaluate for the need for possible thrombectomy. Thank you for allowing us to participate in this patient's care. Please call if you have any questions or concerns. Critical care time: 30 min. This medical document was created using an electronic medical record system with voice recognition software and computerized dictation system. Although this document has been carefully reviewed, there might still be some phonetic and typographical errors. Occasional wrong-word or ``sound-alike substitutions may have occurred due to the inherent limitations of voice recognition software. These areas are purely typographical due to imperfections of the software programs and do not reflect any compromise in the patient's medical care. Please read the chart carefully and recognize, using context, where these substitutions have occurred. Plan discussed with: Patient, Other Date of Service: Jan 29, 2024 Billing Provider: SUSY NEELY MD Cardiology Common Codes: [id number] CARE-EACH +30MIN [facility] Jan 29, 2024 13:05
--- NOTE | 2024-01-29 18:59 | DVHPN2 ---
Subjective SOB and chest tightness; resolving Reviewed: Care Plan, H&P, Labs, Medications, Previous Orders, Radiology, Other (Consultation) Changes from previous H/P or p: Changes Objective Vitals Vital Signs Date Time Temp Pulse Resp B/P (MAP) Pulse Ox O2 Delivery O2 Flow Rate FiO2 01/29/24 18:00 14 97 Hi-Flow Heated NC+ 60 50 50 01/29/24 16:00 87 01/29/24 15:00 115/67 (83) 01/29/24 12:00 98.8 98.8 Intake/Output Intake and Output 01/29/24 07:00 Intake Total 1464 ml Output Total 1281 ml Balance 183 ml Intake Oral 850 ml IV Total 614 ml Output Urine Total 1275 ml Stool Total 6 ml General Appearance: Alert, Oriented X3, Cooperative, moderate distress HEENT: Atraumatic Lungs: Other (Decreased air entry bilateral) Cardiovascular: Regular rate, Normal S1, Normal S2 Abdomen: Normal bowel sounds, Soft, No tenderness Neuro: Normal speech, Cranial nerves 3-12 NL Psych/Mental Status: Mental status NL, Mood NL Medications Current Medications Medications Dose Ordered Sig/Kat Route Start Time Stop Time Status Last Admin Dose Admin Dextrose 50 ml UD PRN IV 01/24/24 18:15 Aspirin 81 mg DAILY PO 01/25/24 10:00 01/29/24 09:33 81 MG Atorvastatin Calcium 40 mg HS PO 01/24/24 22:00 01/28/24 21:06 40 MG Morphine Sulfate 2 mg Q30MP PRN IV 01/24/24 18:15 Acetaminophen 650 mg Q6HP PRN PO 01/24/24 18:15 01/28/24 17:22 650 MG Docusate Sodium 100 mg DAILY PO 01/25/24 10:00 01/29/24 09:37 100 MG Ondansetron HCl 4 mg Q4HP PRN IV 01/24/24 18:15 Nitroglycerin 0.4 mg Q5MINP PRN SL 01/24/24 18:15 Albuterol 2.5 mg Q4HR NEB 01/24/24 22:00 01/29/24 18:19 2.5 MG Methylprednisolone Sodium Succinate 40 mg BID IV 01/24/24 22:00 01/29/24 09:32 40 MG Ceftriaxone Sodium 50 ml @ 100 mls/hr DAILY@09 IV 01/25/24 09:00 01/29/24 08:33 100 MLS/HR Azithromycin 250 ml @ 125 mls/hr DAILY IV 01/25/24 10:00 01/29/24 09:32 125 MLS/HR Furosemide 20 mg DAILY IV 01/27/24 10:00 01/29/24 09:32 20 MG Heparin Sodium/ Dextrose 250 ml @ 11 mls/hr [id number] IV 01/27/24 08:30 01/29/24 00:13 11 MLS/HR Diagnostic Test (Pha) 1 strip ACHS 01/27/24 17:00 01/29/24 18:16 1 STRIP Melatonin 5 mg HS PRN PO 01/27/24 22:00 01/28/24 00:05 5 MG Insulin Human Regular ACHS SC 01/27/24 22:00 01/29/24 18:21 2 UNITS Laboratory Results Laboratory Tests 01/29/24 04:20 Chemistry Test 01/29/24 04:20 Calcium Level 9.8 mg/dL (8.7-10.4) Coagulation Test 01/29/24 04:20 Prothrombin Time 11.5 sec (9.3-11.8) Prothrombin Time INR 1.09 (0.9-1.15) Activated Partial Thromboplast Time 56.4 SEC (24.5-34.5) H Blood Gas Results Test 01/29/24 05:59 Arterial Blood pH 7.417 (7.350-7.450) FiO2 % 50.0 Microbiology Microbiology Date/Time Source Procedure Growth Status 01/28/24 00:00 Nose MRSA Screen - Final Complete Labs and/or images reviewed: Labs reviewed by me, Image(s) reviewed by me Assessment/Plan Assessment/Plan A 64-year-old female patient; with multiple comorbidities; who presented to emergency department with SOB and chest tightness. #Acute hypoxic respiratory failure due to bilateral pulmonary emboli; reviewed available imaging studies and ABGs; continue oxygen therapy as needed; now on high-flow nasal cannula FiO2 of 40%; was on BiPAP; continue close monitoring #Submassive bilateral pulmonary emboli with RV strain in the setting of history of pulmonary embolism 2008; causing SOB and chest tightness; stopped Xarelto in November 2023; continue heparin infusion; cardiology is following; reviewed chest angiogram and echocardiogram; no DVTs; continue close monitoring #Chest tightness with NSTEMI type 2; demand ischemia; the setting of RV strain secondary to submassive bilateral pulmonary emboli; telemetry; continue aspirin and statin; cardiology is following; continue close monitoring #Essential hypertension; continue antihypertensive medications as indicated; continue monitoring #Hyperglycemia; prediabetic; continue insulin sliding scale and hypoglycemia protocol; continue monitoring #Asthma exacerbation; continue IV steroids with IV antibiotics; continue oxygen therapy as above; continue monitoring #Metabolic syndrome with prediabetes and dyslipidemia along with overweight/obesity; counseled the patient on the importance of adopting healthy lifestyle with diet and exercise in order to lose weight #Dyslipidemia; continue statin; reviewed lipid profile; continue monitoring #Prediabetes; newly diagnosed; hemoglobin A1c of 6.1%; management as above; continue monitoring #CURRY; most likely vasomotor nephropathy in the setting of submassive bilateral pulmonary emboli and RV strain; avoid nephrotoxic agents; continue monitoring #Macrocytosis without anemia; to investigate as outpatient; continue monitoring #Low TSH; free T4 pending; continue monitoring 48 minutes of critical care time This medical document was created using an electronic medical record system with computerized dictation system. Although this document has been carefully reviewed, there might still be some phonetic and typographical errors. These areas are purely typographical due to imperfections of the software programs, and do not reflect any compromise in the patient's medical care. Plan discussed with: Patient, Other (Nurse) My Orders Orders - VINOD WALTER MD Procedure Category Date Status Time PTPTT LAB 01/30/24 Verified 05:00 Comprehensive LAB 01/30/24 Verified Metabolic Panel 04:00 Magnesium LAB 01/30/24 Verified 04:00 1 View Decubitus XY 01/30/24 Logged Chest Xray 07:00 Abg W/ Co-Ox RT 01/30/24 Logged 06:00 Date of Service: Jan 29, 2024 Billing Provider: VINOD WALTER MD Common Visit Codes: [id number] CARE 30-74 MIN (48 minutes) VINOD WALTER MD Jan 29, 2024 18:59
--- NOTE | 2024-01-29 23:43 | DVHPN2 ---
Progress Note - Dictate Date Seen: Jan 29, 2024 Medical Necessity Reason Pt with a Central, PICC or Fol: Yes The following are medically ne: Brice Catheter Reason for brice catheter: Strict I&O Subjective Patient seen and examined at bedside. Remains on supplemental oxygen Overnight events reviewed. vital signs Vital Sign Date Time Temp Pulse Resp B/P (MAP) Pulse Ox O2 Delivery O2 Flow Rate FiO2 01/29/24 22:15 75 13 96 60.0 50 01/29/24 22:00 Hi-Flow Heated NC+ 01/29/24 21:00 131/82 (98) 01/29/24 20:00 98.1 98.1 Total Intake and Output 01/28/24 01/28/24 01/29/24 15:00 23:00 07:00 Intake Total 438 ml 377 ml 649 ml Output Total 804 ml 477 ml Balance 438 ml -427 ml 172 ml medications Current Medications Medications Dose Ordered Sig/Kat Route Start Time Stop Time Status Last Admin Dose Admin Dextrose 50 ml UD PRN IV 01/24/24 18:15 Aspirin 81 mg DAILY PO 01/25/24 10:00 01/29/24 09:33 81 MG Atorvastatin Calcium 40 mg HS PO 01/24/24 22:00 01/29/24 22:04 40 MG Morphine Sulfate 2 mg Q30MP PRN IV 01/24/24 18:15 Acetaminophen 650 mg Q6HP PRN PO 01/24/24 18:15 01/28/24 17:22 650 MG Docusate Sodium 100 mg DAILY PO 01/25/24 10:00 01/29/24 09:37 100 MG Ondansetron HCl 4 mg Q4HP PRN IV 01/24/24 18:15 Nitroglycerin 0.4 mg Q5MINP PRN SL 01/24/24 18:15 Albuterol 2.5 mg Q4HR NEB 01/24/24 22:00 01/29/24 22:15 2.5 MG Methylprednisolone Sodium Succinate 40 mg BID IV 01/24/24 22:00 01/29/24 22:04 40 MG Ceftriaxone Sodium 50 ml @ 100 mls/hr DAILY@09 IV 01/25/24 09:00 01/29/24 08:33 100 MLS/HR Azithromycin 250 ml @ 125 mls/hr DAILY IV 01/25/24 10:00 01/29/24 09:32 125 MLS/HR Furosemide 20 mg DAILY IV 01/27/24 10:00 01/29/24 09:32 20 MG Heparin Sodium/ Dextrose 250 ml @ 11 mls/hr [id number] IV 01/27/24 08:30 01/29/24 00:13 11 MLS/HR Diagnostic Test (Pha) 1 strip ACHS 01/27/24 17:00 01/29/24 22:04 1 STRIP Melatonin 5 mg HS PRN PO 01/27/24 22:00 01/29/24 20:22 5 MG Insulin Human Regular ACHS SC 01/27/24 22:00 01/29/24 18:21 2 UNITS objective Gen.: Patient lying in bed in no apparent distress. On supplemental oxygen. Head: Normocephalic, atraumatic. Eyes: EOMI/PERRLA. Ears: Normal hearing. Normal anatomy. Neck/trachea: Trachea midline, supple. Nose: Normal external anatomy. Mouth: Moist mucous membranes. Chest: Decreased air entry bilaterally. Wheezing present. No rhonchi. Cardiovascular: Positive S1, positive S2. Regular rate and rhythm. Abdomen: Positive bowel sounds in all 4 quadrants. Soft, non-tender, non- distended. : Deferred. Rectal: Deferred. Skin: Warm, dry. Intact. Extremities: 2+ radial pulses bilaterally. No lower extremity edema. Neuro: Awake, alert, oriented x3. No gross motor or sensory deficits. Cranial nerves II through XII intact. Gait not assessed. laboratory and microbiology Laboratory Tests 01/29/24 04:20 Test 01/29/24 04:20 Range/Units Serum Glucose 148 H 74-106 mg/dL Assessment/Plan Impression: Acute hypoxic respiratory failure Pulmonary emboli w/ RV strain Asthma exacerbation Atelectasis. Hx of nicotine dependence Events: Remains on supplemental oxygen On high flow O2 at flow rate 60 LPM , FiO2 50%. (Increased o2 requirements, up from 40%) Taper O2 as tolerated Heparin drip. PTT therapeutic. Wheezing slowly improving Continue bronchodilators Continue IV steroids Continue antibiotics Incentive spirometry Awaiting IR eval for thrombectomy. Labs and imaging reviewed. Rest of plan as noted below. Plan: Supplemental oxygen Titrate to keep O2 sats above 92%. Continue bronchodilators. Continue antibiotics IV steroids Heparin drip. Monitor renal function. Monitor electrolytes. Supplement as necessary. Monitor ins and outs. DVT prophylaxis. Prognosis: Poor given patient's multiple co-morbidities. Condition: Critical Rest of plan per hospitalist and other consultants. A total of 35 minutes of critical care time was spent reviewing the patient record, examining the patient, making a diagnostic and therapeutic plan, discussing this plan with the medical personnel, following up on diagnostic studies and following the patient for clinical stability excluding any and all procedures. At least 50% of this time was spent in direct, [id number] contact. Thank you Dr. James Schulz MD, for allowing me to participate in this patient's care. Further recommendations will depend on the patient's clinical course. Please do not hesitate to contact me if you have any questions or concerns. This medical document was created using an electronic medical record system with [employer] dictation system. Although these documentations are being carefully reviewed, there may still be some phonetic and typographical changes. The errors are purely typographical, due to imperfection on the software program, and do not reflect any compromise in the patient's medical care. Plan discussed with: Other (RN Camila) Critical Care Time(min): 35 LEV TORRES MD Jan 29, 2024 23:43
[2024-01-30] VITALS (65 sets, daily range): BP systolic 112–155; BP diastolic 60–92; PULSE 65–97; RESP 11–24; TEMP 98–98.5; O2SAT 89–98
[2024-01-30 06:12] LABS: Basophils # (auto) 0 10 ^3/uL (0-0.2); Basophils % (auto) 0.1 % (0.0-2.0); Eosinophils # (auto) 0 10 ^3/uL (0-0.8); Lymphocytes # (auto) 0.3 10 ^3/uL (0.4-5.4); Mean Corpuscular Volume 101.3 fL (80.0-100.0); Monocytes # (auto) 0.4 10 ^3/uL (0-1.3); Nucleated Red Blood Cells % 0.1 %; Red Cell Distribution Width 15.4 % (11.8-14.3)
[2024-01-30 06:14] LABS: INR 1.11 (0.9-1.15); Partial Thromboplastin Time 61.5 SEC (24.5-34.5); Prothrombin Time 11.7 sec (9.3-11.8)
[2024-01-30 06:17] LABS: Alanine Aminotransferase 19 U/L (7-40); Albumin 3.8 g/dL (3.2-4.8); Alkaline Phosphatase 58 U/L (46-116); Anion Gap 8 (5-15); Aspartate Aminotransferase 14 U/L (13-40); BUN/Creatinine Ratio 30.2 (10.0-20.0); Chloride 102 mmol/L (98-107); Magnesium 1.8 mg/dL (1.6-2.6); Potassium 4.5 mmol/L (3.5-5.1); Sodium 141 mmol/L (136-145)
[2024-01-30 06:18] LABS: Bilirubin, Total 0.8 mg/dL (0.2-1.0); Total Protein 5.8 g/dL (5.7-8.2)
[2024-01-30 06:20] LABS: Blood Urea Nitrogen 26 mg/dL (9-23); Carbon Dioxide 31 mmol/L (20-31); Glucose 133 mg/dL (74-106)
[2024-01-30 06:21] LABS: Hematocrit 45.3 % (36.0-46.0); Hemoglobin 15.4 g/dL (12.2-16.2); Lymphocytes % (auto) 3.9 % (10.0-50.0); Mean Corpuscular Hemoglobin 34.4 pg (28.0-32.0); Monocytes % (auto) 5.7 % (0.0-12.0); Neutrophils # (auto) 6.5 10 ^3/uL (1.6-8.6); Neutrophils % (auto) 90.3 % (37.0-80.0); Platelet Count (auto) 242 10^3/uL (140-450); Red Blood Cells 4.47 10^6/uL (4.0-5.20); White Blood Cell 7.2 10^3/uL (4.4-10.8)
[2024-01-30 08:37] LABS: Base Excess 5.2 mmol/L (-2.0-3.0)
--- NOTE | 2024-01-30 09:45 | DVHPN2 ---
Progress Note Date Seen: Jan 30, 2024 Medical Necessity Reason Pt with a Central, PICC or Fol: Yes The following are medically ne: Brice Catheter Reason for brice catheter: Strict I&O Subjective Patient reports: No new complaints Review of Systems: HEENT:Normal, CVS:Normal, RESPIRATORY:Normal, GI:Normal, :Normal, MSK:Normal, NEURO:Normal Objective vital signs Vital Sign Date Time Temp Pulse Resp B/P (MAP) Pulse Ox O2 Delivery O2 Flow Rate FiO2 01/30/24 08:30 85 18 93 01/30/24 08:00 Hi-Flow Heated NC+ 60 50 50 01/30/24 04:00 98.0 98.0 Total Intake and Output 01/29/24 01/29/24 01/30/24 15:00 23:00 07:00 Intake Total 388 ml 688 ml 199 ml Output Total 1010 ml 325 ml Balance 388 ml -322 ml -126 ml medications Current Medications Medications Dose Ordered Sig/Kat Route Start Time Stop Time Status Last Admin Dose Admin Dextrose 50 ml UD PRN IV 01/24/24 18:15 Aspirin 81 mg DAILY PO 01/25/24 10:00 01/29/24 09:33 81 MG Atorvastatin Calcium 40 mg HS PO 01/24/24 22:00 01/29/24 22:04 40 MG Morphine Sulfate 2 mg Q30MP PRN IV 01/24/24 18:15 Acetaminophen 650 mg Q6HP PRN PO 01/24/24 18:15 01/28/24 17:22 650 MG Docusate Sodium 100 mg DAILY PO 01/25/24 10:00 01/29/24 09:37 100 MG Ondansetron HCl 4 mg Q4HP PRN IV 01/24/24 18:15 Nitroglycerin 0.4 mg Q5MINP PRN SL 01/24/24 18:15 Albuterol 2.5 mg Q4HR NEB 01/24/24 22:00 01/30/24 07:04 2.5 MG Methylprednisolone Sodium Succinate 40 mg BID IV 01/24/24 22:00 01/29/24 22:04 40 MG Ceftriaxone Sodium 50 ml @ 100 mls/hr DAILY@09 IV 01/25/24 09:00 01/30/24 08:41 100 MLS/HR Azithromycin 250 ml @ 125 mls/hr DAILY IV 01/25/24 10:00 01/29/24 09:32 125 MLS/HR Furosemide 20 mg DAILY IV 01/27/24 10:00 01/29/24 09:32 20 MG Heparin Sodium/ Dextrose 250 ml @ 11 mls/hr [id number] IV 01/27/24 08:30 01/30/24 01:34 11 MLS/HR Diagnostic Test (Pha) 1 strip ACHS 01/27/24 17:00 01/30/24 06:32 1 STRIP Melatonin 5 mg HS PRN PO 01/27/24 22:00 01/29/24 20:22 5 MG Insulin Human Regular ACHS SC 01/27/24 22:00 01/30/24 06:32 2 UNITS Examination: GENERAL:Normal, HEENT:Normal, NECK:Normal, LUNGS:Normal, LUNGS:Abnormal (on high flow oxygen), CVS:Normal, ABDOMEN:Normal, MSK:Normal, SKIN:Normal, NEURO:Normal, :Normal laboratory and microbiology Laboratory Tests 01/30/24 05:21 Test 01/30/24 05:21 Range/Units Serum Glucose 133 H 74-106 mg/dL Microbiology Date/Time Source Procedure Growth Status 01/28/24 00:00 Nose MRSA Screen - Final Complete Problem List/Assessment/Plan Problem List/Assessment/Plan #1 acute resp failure: cont high flow oxygen #2 acute PE: on heparin drip #3 asthma #4 htn #5 obesity #6 nstemi ?type 2 #7 acute diastolic heart failure likely due to pe/rv strain #8 ?pneumonia: on antibiotics #9 acute renal failure ?vasomotor nephropathy Plan discussed with: Patient My Orders My Orders Orders - WU BECK MD Procedure Category Date Status Time Urinalysis LAB 01/30/24 Uncollected 09:39 Basic Metabolic Panel LAB 01/31/24 Verified 06:00 Complete Blood Count LAB 01/31/24 Verified 06:00 Critical Care Time (mins): 41 (critical care time 41 mins) Date of Service: Jan 30, 2024 Billing Provider: WU BECK MD Common Visit Codes: [id number] CARE 30-74 MIN WU BECK MD Jan 30, 2024 09:45
--- NOTE | 2024-01-30 10:14 | DVHPN2 ---
Consult Progress Note Date Seen: Jan 30, 2024 Subjective Other Systems: Patient remains on HiFlow nasal cannula 50L, FIO2 50%. Objective vital signs Vital Sign Date Time Temp Pulse Resp B/P (MAP) Pulse Ox O2 Delivery O2 Flow Rate FiO2 01/30/24 08:30 85 18 93 01/30/24 08:00 Hi-Flow Heated NC+ 60 50 50 01/30/24 04:00 98.0 98.0 Total Intake and Output 01/29/24 01/29/24 01/30/24 15:00 23:00 07:00 Intake Total 388 ml 688 ml 199 ml Output Total 1010 ml 325 ml Balance 388 ml -322 ml -126 ml medications Current Medications Medications Dose Ordered Sig/Kat Route Start Time Stop Time Status Last Admin Dose Admin Dextrose 50 ml UD PRN IV 01/24/24 18:15 Aspirin 81 mg DAILY PO 01/25/24 10:00 01/30/24 10:06 81 MG Atorvastatin Calcium 40 mg HS PO 01/24/24 22:00 01/29/24 22:04 40 MG Morphine Sulfate 2 mg Q30MP PRN IV 01/24/24 18:15 Acetaminophen 650 mg Q6HP PRN PO 01/24/24 18:15 01/28/24 17:22 650 MG Docusate Sodium 100 mg DAILY PO 01/25/24 10:00 01/29/24 09:37 100 MG Ondansetron HCl 4 mg Q4HP PRN IV 01/24/24 18:15 Nitroglycerin 0.4 mg Q5MINP PRN SL 01/24/24 18:15 Albuterol 2.5 mg Q4HR NEB 01/24/24 22:00 01/30/24 07:04 2.5 MG Ceftriaxone Sodium 50 ml @ 100 mls/hr DAILY@09 IV 01/25/24 09:00 01/30/24 08:41 100 MLS/HR Azithromycin 250 ml @ 125 mls/hr DAILY IV 01/25/24 10:00 01/30/24 10:06 125 MLS/HR Heparin Sodium/ Dextrose 250 ml @ 11 mls/hr [id number] IV 01/27/24 08:30 01/30/24 01:34 11 MLS/HR Diagnostic Test (Pha) 1 strip ACHS 01/27/24 17:00 01/30/24 06:32 1 STRIP Melatonin 5 mg HS PRN PO 01/27/24 22:00 01/29/24 20:22 5 MG Insulin Human Regular ACHS SC 01/27/24 22:00 01/30/24 06:32 2 UNITS Examination: GENERAL:Normal, LUNGS:Abnormal (Diminished bilateral lower lobes), CVS:Normal, NEURO:Normal laboratory and microbiology Laboratory Tests 01/30/24 05:21 Test 01/30/24 05:21 Range/Units Serum Glucose 133 H 74-106 mg/dL Problem List/Assessment/Plan Problem List/Assessment/Plan Bilateral pulmonary emboli with evidence of right heart strain NSTEMI type II secondary to above [id number] tricuspid valve regurgitation Acute on chronic hypoxic respiratory failure Hx of PE in 2008, off Xarelto x 1 mo. Left lung pneumonia Asthma exacerbation Acute kidney injury Suboptimal medical therapy Medication noncompliance Plan/Recommendation (Dr. Neely) Transthoracic echocardiogram reveals EF 55%, RVSP [address] angio chest with contrast revealed bilateral pulmonary emboli with evidence of right heart strain. Patient was initiated on a heparin drip. Patient continues on Hi flow nasal cannula with oxygen requirement at 50L, FIO2 50%. O2 saturations maintaining 94-95% on monitor. Patient seen and examined at bedside with . Given that the patient still requiring high oxygen, we will schedule the patient for a thrombectomy on 01/31/24. Plan and procedure discussed with the patient full detail. Patient was agreeable. Thank you for allowing us to care for this patient. Please call with any questions or concerns. Critical care time: 40 min. This medical document was created using an electronic medical record system with voice recognition software and computerized dictation system. Although this document has been carefully reviewed, there might still be some phonetic and typographical errors. Occasional wrong-word or ``sound-alike substitutions may have occurred due to the inherent limitations of voice recognition software. These areas are purely typographical due to imperfections of the software programs and do not reflect any compromise in the patient's medical care. Please read the chart carefully and recognize, using context, where these substitutions have occurred. Plan discussed with: Patient Date of Service: Jan 30, 2024 Billing Provider: SUSY NEELY MD Cardiology Common Codes: [id number] CARE 30-74 MIN RASHI SOLANO Jan 30, 2024 10:14
--- NOTE | 2024-01-30 10:48 | DVH ---
CHEST RADIOGRAPH Indication: Follow up and acute respiratory failure. Thank You! Technique: Single AP portable chest radiograph was obtained. Comparison: XY CHEST PORTABLE on DOS: 01/29/24, XY CHEST PORTABLE on DOS: 01/28/24, XY CHEST PORTABLE on DOS: 01/26/24, XY CHEST PORTABLE on DOS: 01/24/24, XY CHEST PORTABLE on DOS: 01/29/24 FINDINGS: cardiomegaly and prominence of the pulmonary vasculature, similar to the prior exam. No focal consol idation. No other significant interval change. IMPRESSION: Cardiomegaly and prominence of the pulmonary vasculature May suggest a degree of pulmonary vascular c ongestion in the appropriate clinical setting. No focal consolidation.
[2024-01-30 11:35] LABS: Urine Bacteria None Seen /hpf (None Seen)
[2024-01-30 11:47] LABS: Urine Blood 3+ /uL (Negative); Urine Clarity Clear (Clear); Urine Protein, UAD 2+ (Negative); Urine Specific Gravity 1.028 (1.001-1.035); Urine Urobilinogen Normal (Negative); Urine WBC 14 /hpf (0 - 5)
[2024-01-30 11:51] LABS: Urine Color Yellow (Yellow)
[2024-01-31] VITALS (64 sets, daily range): BP systolic 104–143; BP diastolic 55–89; PULSE 63–98; RESP 12–25; TEMP 98–98.1; O2SAT 90–100
[2024-01-31 06:39] LABS: Anion Gap 7 (5-15); Basophils # (auto) 0 10 ^3/uL (0-0.2); Basophils % (auto) 0.1 % (0.0-2.0); Carbon Dioxide 32 mmol/L (20-31); Chloride 103 mmol/L (98-107); Eosinophils # (auto) 0.2 10 ^3/uL (0-0.8); Eosinophils % (auto) 2.1 % (0.0-7.0); Hematocrit 45.8 % (36.0-46.0); Hemoglobin 15.4 g/dL (12.2-16.2); Lymphocytes # (auto) 1.4 10 ^3/uL (0.4-5.4); Lymphocytes % (auto) 15.6 % (10.0-50.0); Mean Corpuscular Hemoglobin 34.2 pg (28.0-32.0); Mean Corpuscular Hgb Conc. 33.7 g/dL (32.0-36.0); Mean Corpuscular Volume 101.4 fL (80.0-100.0); Monocytes # (auto) 1.1 10 ^3/uL (0-1.3); Monocytes % (auto) 12.6 % (0.0-12.0); Neutrophils # (auto) 6.2 10 ^3/uL (1.6-8.6); Neutrophils % (auto) 69.6 % (37.0-80.0); Nucleated Red Blood Cells % 0.1 %; Platelet Count (auto) 231 10^3/uL (140-450); Potassium 3.8 mmol/L (3.5-5.1); Red Blood Cells 4.51 10^6/uL (4.0-5.20); Sodium 142 mmol/L (136-145)
[2024-01-31 06:40] LABS: Calcium 9.8 mg/dL (8.7-10.4)
[2024-01-31 06:41] LABS: INR 1.06 (0.9-1.15); Prothrombin Time 11.2 sec (9.3-11.8)
[2024-01-31 06:45] LABS: BUN/Creatinine Ratio 27.5 (10.0-20.0); Blood Urea Nitrogen 22 mg/dL (9-23); Glucose 92 mg/dL (74-106)
[2024-01-31] MEDS: HEPARIN IN NS 1000Units/500mL 1,500 ML ONE (10:35)
[2024-01-31] MEDS: IODIXANOL 320MG/ML 100ML BTL IV ONE ×2 (10:35→11:43)
[2024-01-31] MEDS: LIDOCAINE 2%HCL (LOCAL ANESTH.) INJ 20ML MDV ONE (10:53)
[2024-01-31] MEDS: MIDAZOLAM HCL 2MG/2ML 2ml VIAL (1mg/ml) ONE (10:53)
[2024-01-31] MEDS: fentaNYL CITRATE 100 MCG/2 ML VL ONE (10:53)
--- NOTE | 2024-01-31 13:18 | DVHOP2 ---
Operative Report - 2 Report Details Date: 01/31/24 Preop Diagnosis: Acute on chronic submassive pulmonary embolism. Postop Diagnosis: Pulmonary angiogram was performed revealing mainly moderate burden of clot seen in the right pulmonary artery and distal right interlobar artery. An attempt to retrieve clot was made using an artery clot retrieval device with a mild white colored clot retrieval. 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 Surgeon: Manuel Shrestha MD Anesthesiologist: Conscious sedation using25 mcg of fentanyl as well as a mg IV midazolam. It was given in the direct supervision of myself with the% attending nurses. Patient was monitored for total of35 minutes without obvious complication. Anesthesia: Local Consent: The patient was informed of the risks and benefits of the procedure. These include but are not limited to complications of anesthesia, postoperative infection, incomplete relief of symptoms, recurrence of symptoms, damage to blood vessels, nerves and tendons, deep venous thrombosis, pulmonary embolism and possible need for repeat surgery in the future. Indications for Surgery: This is a pleasant 64-year-old female who presented to the emergency room via EMS with a chief complaint of shortness of breath for two days. The patient complains of progressive shortness of breath associated with a productive cough with yellowish sputum and chest pain described as substernal, sharp in nature, and worse with cough. She was found with oxygen saturation levels of 87% on room air for which she was placed on supplemental oxygenation. Upon arrival to the emergency room, the patient was on a non-rebreather mask at 15 liters/minute. At time of assessment, she was found on a BiPAP machine at 70%. Troponin levels are trending with latest in the 600s ng/L. A 12-lead electrocardiogram revealed a sinus rhythm with anteroseptal/inferior ST changes as well as S1T3 pattern. Of note, reports a history of pulmonary emboli diagnosed in 2008 and on Xarelto therapy. Reports she ran out of Xarelto approximately a month ago. Other medical history includes hypertension, severe asthma, depression, and remote history of tobacco use. Name of Procedure Performed 1. Right heart catheterization using Reed Point-Bess catheter. 2. Ultrasound-guided right femoral venous access. 3. Right and left selective pulmonary angiography utilizing large bore catheter clot retriever. 4. Clot retrieval using clot retrieval device as well as the 20 degree curve retriever. 5. Conscious sedation using25 mcg of fentanyl as well as a mg IV midazolam. 6. Figure of eight closure of the right femoral venous access with a flow stasis device application. Procedure Details Procedure Details: Procedural details of vascular access: After informed consent was obtained risks, benefits, complications, alternatives were discussed in details patient who agrees to have the procedure done. At the beginning of the procedure the right coronary artery were prepped and draped in the regular sterile fashion. Under ultrasound guidance we were able to identify the right femoral vein just medial to the right common femoral artery. After stooling 10% of 1% xylocaine we were able to puncture the anterior wall of the right femoral vein under ultrasound guidance, followed which a micropuncture kit was advanced and finally it was exchanged for a seven Israeli sheath right femoral venous access. Right heart catheterization was conducted at this time findings were as follows: 1. Right heart catheterization measurements: 1. Right atrial pressure was 15/17 with a mean of 6 mm of mercury. 2. Right ventricular pressure was 75/5 with a mean of7 mm of mercury. 3. Pulmonary artery pressure was 77/22 with a mean of43 mm of mercury. 4. Pulmonary capillary wedge pressure was 18/27 with a mean of 19 mm of mercury. 2. Right and left selective pulmonary artery venography: 1. The main pulmonary confluence has no significant clot detected. 2. The right pulmonary veins has [id number] distal filling defect involving the distal interlobar artery. 3. The left pulmonary vein has no significant filling defects. Clot retriever applications: After measurement of the right heart catheterization was done using Reed Point-Bess catheter, a 300 choice PT wire was advanced through the Reed Point-Bess catheter before it was exchanged for a curved pigtail catheter. This was then exchanged for Vitek catheter which was able to engage the right coronary system. Then the small wire was exchanged for a Super Stiff Amplatzer through the Vitek catheter before Israeli clot retriever sheath was advanced with the dilator all the way to the distal part of the inferior vena cava. And then with the help of the guiding catheter were able to engage the right pulmonary artery before the clot retriever as well as a dilated were able to be advanced and secured in position in the right pulmonary artery. Once the clot retrieval was part of the main pulmonary artery we were able to advanced to the right side and we were able to do multiple runs of pots suction were able to retrieve minimal white colored clot likely indicating chronic thromboembolic disease. We also used the curve clot a fever at 20 degree to engage the distal right interlobar artery. There was minimal clot retriever. Patient received auto transfusion of the blood was filter. With a minimal blood loss. The final hemodynamics were as follows the right atrial pressure was 17/28 with a mean of 14, The right ventricular pressure was 71/3 with a mean of8 mm of mercury, The pulmonary artery pressure was 76/32 with a mean of21 mm of mercury. The most salient findings after attempted clot retrieval is the drop in the mean pulmonary artery mm of mercury. Over the stiff wire we were able to retrieve the clot retriever and apply figure of eight suture to the site of the puncture with the help of the flow stasis we were able to maintain hemostasis without obvious complication. Impression and plan: 1. Successful attempt for clot retrieval of the right distal pulmonary artery as well as the right interlobar distal artery. With a minimal clot retriever and improvement in the pulmonary artery pressure. 2. 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 Patient might benefit from rising white medication addition to long-term anticoagulation, patient would need to be seen in high specialized pulmonary hypertension clinic in a tertiary center. Condition Good Disposition MANUEL SHRESTHA MD Jan 31, 2024 13:18
--- NOTE | 2024-01-31 15:13 | DVHPN2 ---
Progress Note Date Seen: Jan 31, 2024 Medical Necessity Reason Pt with a Central, PICC or Fol: Yes The following are medically ne: Brice Catheter Reason for brice catheter: Strict I&O Subjective Patient reports: No new complaints Review of Systems: HEENT:Normal, CVS:Normal, RESPIRATORY:Normal, GI:Normal, :Normal, MSK:Normal, NEURO:Normal Objective vital signs Vital Sign Date Time Temp Pulse Resp B/P (MAP) Pulse Ox O2 Delivery O2 Flow Rate FiO2 01/31/24 14:19 87 22 98 01/31/24 14:11 Oxymizer 12 N/A 01/31/24 13:45 01/31/24 08:00 98.1 98.1 Total Intake and Output 01/30/24 01/30/24 01/31/24 15:00 23:00 07:00 Intake Total 338 ml 488 ml 288 ml Output Total 350 ml 250 ml Balance 338 ml 138 ml 38 ml medications Current Medications Medications Dose Ordered Sig/Kat Route Start Time Stop Time Status Last Admin Dose Admin Dextrose 50 ml UD PRN IV 01/24/24 18:15 Aspirin 81 mg DAILY PO 01/25/24 10:00 01/30/24 10:06 81 MG Atorvastatin Calcium 40 mg HS PO 01/24/24 22:00 01/30/24 22:07 40 MG Morphine Sulfate 2 mg Q30MP PRN IV 01/24/24 18:15 Acetaminophen 650 mg Q6HP PRN PO 01/24/24 18:15 01/28/24 17:22 650 MG Docusate Sodium 100 mg DAILY PO 01/25/24 10:00 01/29/24 09:37 100 MG Ondansetron HCl 4 mg Q4HP PRN IV 01/24/24 18:15 Nitroglycerin 0.4 mg Q5MINP PRN SL 01/24/24 18:15 Albuterol 2.5 mg Q4HR NEB 01/24/24 22:00 01/31/24 14:11 2.5 MG Ceftriaxone Sodium 50 ml @ 100 mls/hr DAILY@09 IV 01/25/24 09:00 01/31/24 07:55 100 MLS/HR Azithromycin 250 ml @ 125 mls/hr DAILY IV 01/25/24 10:00 01/31/24 09:55 125 MLS/HR Heparin Sodium/ Dextrose 250 ml @ 11 mls/hr [id number] IV 01/27/24 08:30 01/31/24 01:52 11 MLS/HR Diagnostic Test (Pha) 1 strip ACHS 01/27/24 17:00 01/31/24 06:34 1 STRIP Melatonin 5 mg HS PRN PO 01/27/24 22:00 01/30/24 22:07 5 MG Insulin Human Regular ACHS SC 01/27/24 22:00 01/30/24 11:38 2 UNITS Examination: GENERAL:Normal, HEENT:Normal, NECK:Normal, LUNGS:Normal, LUNGS:Abnormal (ON OXYMIZER), CVS:Normal, ABDOMEN:Normal, MSK:Normal, SKIN:Normal, NEURO:Normal, :Normal laboratory and microbiology Laboratory Tests 01/31/24 04:58 Test 01/31/24 04:58 Range/Units Serum Glucose 92 74-106 mg/dL Microbiology Date/Time Source Procedure Growth Status 01/28/24 00:00 Nose MRSA Screen - Final Complete Problem List/Assessment/Plan Problem List/Assessment/Plan #1 acute resp failure: cont high flow oxygen #2 acute PE: on heparin drip, s/p thrombectomy today #3 asthma #4 htn #5 obesity #6 nstemi ?type 2 #7 acute diastolic heart failure likely due to pe/rv strain #8 ?pneumonia: on antibiotics #9 acute renal failure ?vasomotor nephropathy Plan discussed with: Patient Critical Care Time (mins): 41 (critical care time 41 mins) Date of Service: Jan 31, 2024 Billing Provider: WU BECK MD Common Visit Codes: [id number] CARE 30-74 MIN WU BECK MD Jan 31, 2024 15:13
[2024-02-01] VITALS (42 sets, daily range): BP systolic 98–143; BP diastolic 54–74; PULSE 66–97; RESP 11–20; TEMP 98–98.6; O2SAT 89–99
[2024-02-01 05:16] LABS: Basophils # (auto) 0 10 ^3/uL (0-0.2); Basophils % (auto) 0.2 % (0.0-2.0); Eosinophils # (auto) 0.2 10 ^3/uL (0-0.8); Eosinophils % (auto) 2.1 % (0.0-7.0); Hematocrit 41.6 % (36.0-46.0); Hemoglobin 14.1 g/dL (12.2-16.2); Lymphocytes # (auto) 1.3 10 ^3/uL (0.4-5.4); Lymphocytes % (auto) 12.8 % (10.0-50.0); Mean Corpuscular Hemoglobin 34.4 pg (28.0-32.0); Mean Corpuscular Volume 101.3 fL (80.0-100.0); Monocytes # (auto) 1.4 10 ^3/uL (0-1.3); Neutrophils # (auto) 7.5 10 ^3/uL (1.6-8.6); Neutrophils % (auto) 71.9 % (37.0-80.0); Platelet Count (auto) 223 10^3/uL (140-450); Red Blood Cells 4.11 10^6/uL (4.0-5.20); Red Cell Distribution Width 14.8 % (11.8-14.3); White Blood Cell 10.4 10^3/uL (4.4-10.8)
[2024-02-01 05:25] LABS: Chloride 105 mmol/L (98-107); Sodium 142 mmol/L (136-145)
[2024-02-01 05:26] LABS: Anion Gap 6 (5-15)
[2024-02-01 05:27] LABS: Calcium 9.6 mg/dL (8.7-10.4)
[2024-02-01 05:31] LABS: BUN/Creatinine Ratio 24.1 (10.0-20.0); Blood Urea Nitrogen 20 mg/dL (9-23); Glucose 95 mg/dL (74-106)
[2024-02-01 05:35] LABS: Carbon Dioxide 31 mmol/L (20-31)
[2024-02-01 05:36] LABS: INR 1.05 (0.9-1.15); Prothrombin Time 11.1 sec (9.3-11.8)
[2024-02-01 05:38] LABS: Partial Thromboplastin Time 77.7 SEC (24.5-34.5)
[2024-02-01] MEDS: HEPARIN DRIP/D5W 100UNITS/ML 250 ML IV SCH (06:45)
--- NOTE | 2024-02-01 10:05 | DVHPN2 ---
Progress Note Date Seen: Feb 01, 2024 Medical Necessity Reason Pt with a Central, PICC or Fol: No Subjective Patient reports: No new complaints Review of Systems: HEENT:Normal, CVS:Normal, RESPIRATORY:Normal, GI:Normal, :Normal, MSK:Normal, NEURO:Normal Objective vital signs Vital Sign Date Time Temp Pulse Resp B/P (MAP) Pulse Ox O2 Delivery O2 Flow Rate FiO2 02/01/24 09:57 89 20 96 02/01/24 09:49 Oxymizer 7.0 02/01/24 09:49 N/A 02/01/24 06:00 98/73 (81) 02/01/24 04:00 98.6 98.6 Total Intake and Output 01/31/24 01/31/24 02/01/24 15:00 23:00 07:00 Intake Total 388 ml 266 ml 315 ml Output Total 450 ml 275 ml Balance 388 ml -184 ml 40 ml medications Current Medications Medications Dose Ordered Sig/Kat Route Start Time Stop Time Status Last Admin Dose Admin Dextrose 50 ml UD PRN IV 01/24/24 18:15 Aspirin 81 mg DAILY PO 01/25/24 10:00 01/30/24 10:06 81 MG Atorvastatin Calcium 40 mg HS PO 01/24/24 22:00 01/31/24 21:44 40 MG Morphine Sulfate 2 mg Q30MP PRN IV 01/24/24 18:15 Acetaminophen 650 mg Q6HP PRN PO 01/24/24 18:15 01/31/24 21:44 650 MG Docusate Sodium 100 mg DAILY PO 01/25/24 10:00 01/29/24 09:37 100 MG Ondansetron HCl 4 mg Q4HP PRN IV 01/24/24 18:15 Nitroglycerin 0.4 mg Q5MINP PRN SL 01/24/24 18:15 Albuterol 2.5 mg Q4HR NEB 01/24/24 22:00 02/01/24 09:46 2.5 MG Ceftriaxone Sodium 50 ml @ 100 mls/hr DAILY@09 IV 01/25/24 09:00 02/01/24 08:31 100 MLS/HR Diagnostic Test (Pha) 1 strip ACHS 01/27/24 17:00 02/01/24 06:20 1 STRIP Melatonin 5 mg HS PRN PO 01/27/24 22:00 01/31/24 21:44 5 MG Insulin Human Regular ACHS SC 01/27/24 22:00 01/31/24 17:00 3 UNITS Examination: GENERAL:Normal, HEENT:Normal, NECK:Normal, LUNGS:Normal, LUNGS:Abnormal (on oxymizer), CVS:Normal, ABDOMEN:Normal, MSK:Normal, SKIN:Normal, NEURO:Normal, :Normal laboratory and microbiology Laboratory Tests 02/01/24 04:49 Test 02/01/24 04:49 Range/Units Serum Glucose 95 74-106 mg/dL Microbiology Date/Time Source Procedure Growth Status 01/28/24 00:00 Nose MRSA Screen - Final Complete Problem List/Assessment/Plan Problem List/Assessment/Plan #1 acute resp failure: on oxymizer #2 acute PE: on heparin drip, s/p thrombectomy , start eliquis #3 asthma #4 htn #5 obesity #6 nstemi ?type 2 #7 acute diastolic heart failure likely due to pe/rv strain #8 ?pneumonia: on antibiotics #9 acute renal failure ?vasomotor nephropathy Plan discussed with: Patient My Orders My Orders Orders - WU BECK MD Procedure Category Date Status Time Apixaban (Eliquis) PHA 02/01/24 Transmitted 22:00 Apixaban (Eliquis) PHA 02/01/24 Transmitted 22:00 Azithromycin Tablet PHA 02/02/24 Transmitted (Zithromax Tablet) 10:00 Discontinue Morales JENNI 02/01/24 Transmitted Catheter 10:01 Transfer Orders XFER 02/01/24 Transmitted 10:01 Pt Request For Service PT 02/01/24 Transmitted 10:01 Dietary Evaluation Review Comments: Continue current plan of care Expected Outcomes/Goals: F/U in 3-5 days Critical Care Time (mins): 39 (critical care time 39 mins) Date of Service: Feb 01, 2024 Billing Provider: WU BECK MD Common Visit Codes: [id number] CARE 30-74 MIN WU BECK MD Feb 01, 2024 10:05
--- NOTE | 2024-02-01 13:33 | DVHPN2 ---
Consult Progress Note Subjective Other Systems: Patient now on telemetry unit. Patient on 6L oxymizer at time of assessment. Flowstasis removed from right groin, no signs of bleeding or hematoma noted. Objective vital signs Vital Sign Date Time Temp Pulse Resp B/P (MAP) Pulse Ox O2 Delivery O2 Flow Rate FiO2 02/01/24 12:15 83 15 95 02/01/24 12:00 Oxymizer 8 N/A 02/01/24 04:00 98.6 98.6 Total Intake and Output 01/31/24 01/31/24 02/01/24 15:00 23:00 07:00 Intake Total 388 ml 266 ml 324 ml Output Total 450 ml 275 ml Balance 388 ml -184 ml 49 ml medications Current Medications Medications Dose Ordered Sig/Kat Route Start Time Stop Time Status Last Admin Dose Admin Dextrose 50 ml UD PRN IV 01/24/24 18:15 Aspirin 81 mg DAILY PO 01/25/24 10:00 02/01/24 11:07 81 MG Atorvastatin Calcium 40 mg HS PO 01/24/24 22:00 01/31/24 21:44 40 MG Morphine Sulfate 2 mg Q30MP PRN IV 01/24/24 18:15 Acetaminophen 650 mg Q6HP PRN PO 01/24/24 18:15 01/31/24 21:44 650 MG Docusate Sodium 100 mg DAILY PO 01/25/24 10:00 01/29/24 09:37 100 MG Ondansetron HCl 4 mg Q4HP PRN IV 01/24/24 18:15 Nitroglycerin 0.4 mg Q5MINP PRN SL 01/24/24 18:15 Albuterol 2.5 mg Q4HR NEB 01/24/24 22:00 02/01/24 09:46 2.5 MG Ceftriaxone Sodium 50 ml @ 100 mls/hr DAILY@09 IV 01/25/24 09:00 02/01/24 08:31 100 MLS/HR Diagnostic Test (Pha) 1 strip ACHS 01/27/24 17:00 02/01/24 11:07 1 STRIP Melatonin 5 mg HS PRN PO 01/27/24 22:00 01/31/24 21:44 5 MG Insulin Human Regular ACHS SC 01/27/24 22:00 01/31/24 17:00 3 UNITS Apixaban 10 mg BID PO 02/01/24 22:00 02/08/24 21:59 Apixaban 5 mg BID PO 02/08/24 22:00 Azithromycin 500 mg DAILY PO 02/02/24 10:00 Examination: GENERAL:Normal, LUNGS:Abnormal (Diminished bilateral lower lobes ), CVS:Normal, NEURO:Normal laboratory and microbiology Laboratory Tests 02/01/24 04:49 Test 02/01/24 04:49 Range/Units Serum Glucose 95 74-106 mg/dL Problem List/Assessment/Plan Problem List/Assessment/Plan Bilateral pulmonary emboli with evidence of right heart strain s/p mechanical thrombectomy NSTEMI type II secondary to above [id number] tricuspid valve regurgitation Acute on chronic hypoxic respiratory failure Hx of PE in 2008, off Xarelto x 1 mo. Left lung pneumonia Asthma exacerbation Acute kidney injury Suboptimal medical therapy Medication noncompliance Plan/Recommendation (Dr. Neely) Transthoracic echocardiogram reveals EF 55%, RVSP [address] angio chest with contrast revealed bilateral pulmonary emboli with evidence of right heart strain. The patient underwent a mechanical thrombectomy on 01/31/2024 in which there was a successful attempt for clot retrieval of the right distal pulmonary artery as well as the right interlobular distal artery with minimal clot retrieval and improvement in the pulmonary artery pressure. Today, the patient is on 6L Oxymizer and states improvement in breathing. We will recommend long- term anticoagulation and for the patient to follow up with a pulmonary hypertension clinic in the outpatient setting. There is no further inpatient cardiac workup indicated at this time. Cardiology will sign off. Please reconsult if needed. Thank you for allowing us to care for this patient. Please call with any questions or concerns. This medical document was created using an electronic medical record system with voice recognition software and computerized dictation system. Although this document has been carefully reviewed, there might still be some phonetic and typographical errors. Occasional wrong-word or ``sound-alike substitutions may have occurred due to the inherent limitations of voice recognition software. These areas are purely typographical due to imperfections of the software programs and do not reflect any compromise in the patient's medical care. Please read the chart carefully and recognize, using context, where these substitutions have occurred. Plan discussed with: Patient Dietary Evaluation Review Comments: Continue current plan of care Expected Outcomes/Goals: F/U in 3-5 days Date of Service: Feb 01, 2024 Billing Provider: SUSY NEELY MD Common Visit Codes: [id number] INP/OBS CARE(HIGH) RASHI SOLANO [facility] Feb 01, 2024 13:33
[2024-02-01] MEDS: APIXABAN 5 MG TAB PO SCH (21:31)
[2024-02-02] VITALS (22 sets, daily range): BP systolic 104–120; BP diastolic 64–73; PULSE 65–98; RESP 16–21; TEMP 97.5–98.5; O2SAT 85–100
[2024-02-02 06:18] LABS: Basophils # (auto) 0 10 ^3/uL (0-0.2); Basophils % (auto) 0.5 % (0.0-2.0); Eosinophils # (auto) 0.2 10 ^3/uL (0-0.8); Eosinophils % (auto) 2.6 % (0.0-7.0); Hematocrit 39.4 % (36.0-46.0); Hemoglobin 13.3 g/dL (12.2-16.2); Lymphocytes # (auto) 1.4 10 ^3/uL (0.4-5.4); Lymphocytes % (auto) 14.8 % (10.0-50.0); Mean Corpuscular Hemoglobin 34.3 pg (28.0-32.0); Mean Corpuscular Hgb Conc. 33.8 g/dL (32.0-36.0); Mean Corpuscular Volume 101.5 fL (80.0-100.0); Monocytes # (auto) 1.3 10 ^3/uL (0-1.3); Monocytes % (auto) 13.6 % (0.0-12.0); Neutrophils # (auto) 6.4 10 ^3/uL (1.6-8.6); Neutrophils % (auto) 68.5 % (37.0-80.0); Platelet Count (auto) 205 10^3/uL (140-450); Red Blood Cells 3.88 10^6/uL (4.0-5.20); Red Cell Distribution Width 14.9 % (11.8-14.3); White Blood Cell 9.4 10^3/uL (4.4-10.8)
[2024-02-02] MEDS: AZITHROMYCIN 250 MG TAB PO SCH (08:44)
--- NOTE | 2024-02-02 10:01 | DVHPN2 ---
Progress Note Date Seen: Feb 02, 2024 Medical Necessity Reason Pt with a Central, PICC or Fol: No Subjective Patient reports: No new complaints Review of Systems: HEENT:Normal, CVS:Normal, RESPIRATORY:Normal, GI:Normal, :Normal, MSK:Normal, NEURO:Normal Objective vital signs Vital Sign Date Time Temp Pulse Resp B/P (MAP) Pulse Ox O2 Delivery O2 Flow Rate FiO2 02/02/24 08:42 73 18 02/02/24 08:34 98.0 120/65 (83) 97 98.0 02/02/24 08:29 Oxymizer 6.0 02/02/24 08:29 N/A Total Intake and Output 02/01/24 02/01/24 02/02/24 15:00 23:00 07:00 Intake Total 77 ml 600 ml Balance 77 ml 600 ml medications Current Medications Medications Dose Ordered Sig/Kat Route Start Time Stop Time Status Last Admin Dose Admin Dextrose 50 ml UD PRN IV 01/24/24 18:15 Aspirin 81 mg DAILY PO 01/25/24 10:00 02/02/24 08:44 81 MG Atorvastatin Calcium 40 mg HS PO 01/24/24 22:00 02/01/24 21:30 40 MG Morphine Sulfate 2 mg Q30MP PRN IV 01/24/24 18:15 Acetaminophen 650 mg Q6HP PRN PO 01/24/24 18:15 02/01/24 19:39 650 MG Docusate Sodium 100 mg DAILY PO 01/25/24 10:00 02/02/24 08:57 100 MG Ondansetron HCl 4 mg Q4HP PRN IV 01/24/24 18:15 Nitroglycerin 0.4 mg Q5MINP PRN SL 01/24/24 18:15 Albuterol 2.5 mg Q4HR NEB 01/24/24 22:00 02/02/24 08:28 2.5 MG Ceftriaxone Sodium 50 ml @ 100 mls/hr DAILY@09 IV 01/25/24 09:00 02/02/24 08:43 100 MLS/HR Diagnostic Test (Pha) 1 strip ACHS 01/27/24 17:00 02/02/24 06:20 1 STRIP Melatonin 5 mg HS PRN PO 01/27/24 22:00 02/01/24 23:26 5 MG Insulin Human Regular ACHS SC 01/27/24 22:00 01/31/24 17:00 3 UNITS Apixaban 10 mg BID PO 02/01/24 22:00 02/08/24 21:59 02/02/24 08:43 10 MG Apixaban 5 mg BID PO 02/08/24 22:00 Azithromycin 500 mg DAILY PO 02/02/24 10:00 02/02/24 08:44 500 MG Examination: GENERAL:Normal, HEENT:Normal, NECK:Normal, LUNGS:Normal, LUNGS:Abnormal (on oxygen), CVS:Normal, ABDOMEN:Normal, MSK:Normal, SKIN:Normal, NEURO:Normal, :Normal laboratory and microbiology Laboratory Tests 02/02/24 04:44 02/01/24 04:49 Test 02/01/24 04:49 Range/Units Serum Glucose 95 74-106 mg/dL Microbiology Date/Time Source Procedure Growth Status 01/28/24 00:00 Nose MRSA Screen - Final Complete Problem List/Assessment/Plan Problem List/Assessment/Plan #1 acute resp failure: on oxymizer #2 acute PE: on heparin drip, s/p thrombectomy , start eliquis #3 asthma #4 htn #5 obesity #6 nstemi ?type 2 #7 acute diastolic heart failure likely due to pe/rv strain #8 ?pneumonia: on antibiotics #9 acute renal failure ?vasomotor nephropathy advance care planning- full code- time spent 19mins Plan discussed with: Patient My Orders My Orders Orders - WU BECK MD Procedure Category Date Status Time Apixaban (Eliquis) PHA 02/01/24 In Process 22:00 Azithromycin Tablet PHA 02/02/24 In Process (Zithromax Tablet) 10:00 Discontinue Morales JENNI 02/01/24 In Process Catheter 10:01 Transfer Orders XFER 02/01/24 Transmitted 10:01 Pt Request For Service PT 02/01/24 Logged 10:01 Apixaban (Eliquis) PHA 02/08/24 In Process 22:00 Dietary Evaluation Review Comments: Continue current plan of care Expected Outcomes/Goals: F/U in 3-5 days Date of Service: Feb 02, 2024 Billing Provider: WU BECK MD Common Visit Codes: [id number] INP/OBS CARE(HIGH) Secondary Visit Codes: [id number] CARE PLAN 30 MINUTES WU BECK MD Feb 02, 2024 10:01
[2024-02-03] VITALS (19 sets, daily range): BP systolic 107–129; BP diastolic 56–71; PULSE 68–100; RESP 18–20; TEMP 98–98.5; O2SAT 83–100
[2024-02-03 06:30] LABS: Calcium 9.5 mg/dL (8.7-10.4); Chloride 106 mmol/L (98-107); Sodium 142 mmol/L (136-145)
[2024-02-03 06:31] LABS: Anion Gap 8 (5-15); Carbon Dioxide 28 mmol/L (20-31)
[2024-02-03 06:36] LABS: Glucose 93 mg/dL (74-106)
[2024-02-03 06:37] LABS: BUN/Creatinine Ratio 17.6 (10.0-20.0); Blood Urea Nitrogen 13 mg/dL (9-23)
[2024-02-03 06:41] LABS: Basophils # (auto) 0.1 10 ^3/uL (0-0.2); Eosinophils # (auto) 0.3 10 ^3/uL (0-0.8); Monocytes # (auto) 1.2 10 ^3/uL (0-1.3); Neutrophils # (auto) 5.5 10 ^3/uL (1.6-8.6)
[2024-02-03 06:44] LABS: Basophils % (auto) 0.6 % (0.0-2.0); Eosinophils % (auto) 3.8 % (0.0-7.0); Hematocrit 39.4 % (36.0-46.0); Hemoglobin 13.2 g/dL (12.2-16.2); Lymphocytes # (auto) 1.7 10 ^3/uL (0.4-5.4); Lymphocytes % (auto) 19.1 % (10.0-50.0); Mean Corpuscular Hemoglobin 34.6 pg (28.0-32.0); Mean Corpuscular Hgb Conc. 33.5 g/dL (32.0-36.0); Mean Corpuscular Volume 103.2 fL (80.0-100.0); Monocytes % (auto) 13.7 % (0.0-12.0); Neutrophils % (auto) 62.8 % (37.0-80.0); Nucleated Red Blood Cells % 0.1 %; Platelet Count (auto) 219 10^3/uL (140-450); Red Blood Cells 3.82 10^6/uL (4.0-5.20); Red Cell Distribution Width 14.9 % (11.8-14.3); White Blood Cell 8.7 10^3/uL (4.4-10.8)
--- NOTE | 2024-02-03 10:29 | DVHPN2 ---
Subjective Almost no SOB and no chest tightness Reviewed: Care Plan, H&P, Labs, Medications, Previous Orders, Radiology, Other (Consultation) Changes from previous H/P or p: Changes Objective Vitals Vital Signs Date Time Temp Pulse Resp B/P (MAP) Pulse Ox O2 Delivery O2 Flow Rate FiO2 02/03/24 06:25 69 18 100 02/03/24 06:19 Oxymizer 4 N/A 02/03/24 05:00 98.1 122/71 (88) 98.1 Intake/Output Intake and Output 02/03/24 07:00 Intake Total 2450 ml Balance 2450 ml Intake Oral 2400 ml IV Total 50 ml # Voids 10 General Appearance: Alert, Oriented X3, Cooperative, No acute distress HEENT: Atraumatic Lungs: Clear to auscultation, Normal air movement Cardiovascular: Regular rate, Normal S1, Normal S2 Abdomen: Normal bowel sounds, Soft, No tenderness Neuro: Normal speech, Cranial nerves 3-12 NL Psych/Mental Status: Mental status NL, Mood NL Medications Current Medications Medications Dose Ordered Sig/Kat Route Start Time Stop Time Status Last Admin Dose Admin Dextrose 50 ml UD PRN IV 01/24/24 18:15 Aspirin 81 mg DAILY PO 01/25/24 10:00 02/03/24 10:17 81 MG Atorvastatin Calcium 40 mg HS PO 01/24/24 22:00 02/02/24 21:37 40 MG Acetaminophen 650 mg Q6HP PRN PO 01/24/24 18:15 02/01/24 19:39 650 MG Docusate Sodium 100 mg DAILY PO 01/25/24 10:00 01/29/24 09:37 100 MG Ondansetron HCl 4 mg Q4HP PRN IV 01/24/24 18:15 Nitroglycerin 0.4 mg Q5MINP PRN SL 01/24/24 18:15 Albuterol 2.5 mg Q4HR NEB 01/24/24 22:00 02/03/24 06:19 2.5 MG Ceftriaxone Sodium 50 ml @ 100 mls/hr DAILY@09 IV 01/25/24 09:00 02/03/24 10:16 100 MLS/HR Diagnostic Test (Pha) 1 strip ACHS 01/27/24 17:00 02/03/24 06:37 1 STRIP Melatonin 5 mg HS PRN PO 01/27/24 22:00 02/01/24 23:26 5 MG Insulin Human Regular ACHS SC 01/27/24 22:00 02/02/24 12:16 2 UNITS Apixaban 10 mg BID PO 02/01/24 22:00 02/08/24 21:59 02/03/24 10:16 10 MG Apixaban 5 mg BID PO 02/08/24 22:00 Azithromycin 500 mg DAILY PO 02/02/24 10:00 02/03/24 10:16 500 MG Laboratory Results Laboratory Tests 02/03/24 04:39 Chemistry Test 02/03/24 04:39 Calcium Level 9.5 mg/dL (8.7-10.4) Urinalysis Test 01/30/24 10:00 Urine Color Yellow (Yellow) Urine Clarity Clear (Clear) Urine pH 7.0 (5.0-9.0) Urine Specific [place] 1.028 (1.001-1.035) Urine Protein 2+ (Negative) H Urine Ketones Negative (Negative) Urine Blood 3+ /uL (Negative) H Urine Nitrite Negative (Negative) Urine Bilirubin Negative (Negative) Urine Urobilinogen Normal mg/dL (Negative) Urine Leukocyte Esterase Trace /uL (Negative) Urine RBC 997 /hpf (0 - 4) Urine WBC 14 /hpf (0 - 5) Urine Squamous Epithelial Cells Few /hpf (<5) Urine Bacteria None seen /hpf (None Seen) Urine Glucose Normal mg/dL (Normal) Microbiology Microbiology Date/Time Source Procedure Growth Status 01/28/24 00:00 Nose MRSA Screen - Final Complete Labs and/or images reviewed: Labs reviewed by me, Image(s) reviewed by me Assessment/Plan Assessment/Plan A 64-year-old female patient; with multiple comorbidities; who presented to emergency department with SOB and chest tightness. #Acute hypoxic respiratory failure due to bilateral pulmonary emboli; reviewed available imaging studies and ABGs; continue oxygen therapy as needed; now on Oxymizer 4 to 6 liters/minutes; was on BiPAP and high-flow nasal cannula; continue close monitoring #Submassive bilateral pulmonary emboli with RV strain in the setting of history of pulmonary embolism 2008; causing SOB and chest tightness; stopped Xarelto in November 2023; was on heparin infusion; status post thrombectomy (clot retrieval of the right distal pulmonary artery as well as the right interlobar distal artery) on January 31, 2024 by cardiology; cardiology is following; continue apixaban; reviewed chest angiogram and echocardiogram; no DVTs; continue close monitoring #Chest tightness with NSTEMI type 2; demand ischemia; the setting of RV strain secondary to submassive bilateral pulmonary emboli; telemetry; continue aspirin and statin; cardiology is following; continue close monitoring #Essential hypertension; continue antihypertensive medications as indicated; continue monitoring #Hyperglycemia; prediabetic; continue insulin sliding scale and hypoglycemia protocol; continue monitoring #Asthma exacerbation; continue IV steroids with IV antibiotics; continue oxygen therapy as above; continue monitoring #Metabolic syndrome with prediabetes and dyslipidemia along with morbid obesity; counseled the patient on the importance of adopting healthy lifestyle with diet and exercise in order to lose weight #Dyslipidemia; continue statin; reviewed lipid profile; continue monitoring #Prediabetes; newly diagnosed; hemoglobin A1c of 6.1%; management as above; continue monitoring #CURRY; most likely vasomotor nephropathy in the setting of submassive bilateral pulmonary emboli and RV strain; avoid nephrotoxic agents; continue monitoring #Macrocytosis without anemia; to investigate as outpatient; continue monitoring #Low TSH; free T4 WNL; continue monitoring #Pulmonary hypertension; to follow up as outpatient; continue monitoring #Physical deconditioning due to critical illness; continue physical therapy as inpatient; continue monitoring #Discharge planning; communication order to wean off oxygen as tolerated was placed; 6 minute walking test was placed to determine oxygen needs; new social service consult was placed Goals of care discussed for 20 minutes; full code Late Entry. This medical document was created using an electronic medical record system with computerized dictation system. Although this document has been carefully reviewed, there might still be some phonetic and typographical errors. These areas are purely typographical due to imperfections of the software programs, and do not reflect any compromise in the patient's medical care. Plan discussed with: Patient, Other (Nurse) My Orders Orders - VINOD WALTER MD Procedure Category Date Status Time Basic Metabolic Panel LAB 02/04/24 Verified 04:00 Complete Blood Count LAB 02/04/24 Verified 04:00 Date of Service: Feb 03, 2024 Billing Provider: VINOD WALTER MD Common Visit Codes: [id number] INP/OBS CARE(HIGH) Secondary Visit Codes: [id number] CARE PLAN 30 MINUTES (20 minutes) VINOD WALTER MD Feb 03, 2024 10:29
[2024-02-04] VITALS (19 sets, daily range): BP systolic 112–153; BP diastolic 54–83; PULSE 70–92; RESP 14–20; TEMP 97.4–98.8; O2SAT 90–99
--- NOTE | 2024-02-04 03:10 | DVHPN2 ---
Subjective Almost no SOB and no chest tightness Reviewed: Care Plan, H&P, Labs, Medications, Previous Orders, Radiology, Other (Consultation) Changes from previous H/P or p: No Changes Objective Vitals Vital Signs Date Time Temp Pulse Resp B/P (MAP) Pulse Ox O2 Delivery O2 Flow Rate FiO2 02/04/24 01:53 83 20 92 02/04/24 01:00 97.5 126/72 (90) 97.5 02/03/24 20:00 Oxymizer 4 N/A Intake/Output Intake and Output 02/04/24 07:00 Intake Total 1000 ml Balance 1000 ml Intake Oral 950 ml IV Total 50 ml # Voids 3 General Appearance: Alert, Oriented X3, Cooperative, No acute distress HEENT: Atraumatic Lungs: Clear to auscultation, Normal air movement Cardiovascular: Regular rate, Normal S1, Normal S2 Abdomen: Normal bowel sounds, Soft, No tenderness Neuro: Normal speech, Cranial nerves 3-12 NL Psych/Mental Status: Mental status NL, Mood NL Medications Current Medications Medications Dose Ordered Sig/Kat Route Start Time Stop Time Status Last Admin Dose Admin Dextrose 50 ml UD PRN IV 01/24/24 18:15 Aspirin 81 mg DAILY PO 01/25/24 10:00 02/03/24 10:17 81 MG Atorvastatin Calcium 40 mg HS PO 01/24/24 22:00 02/03/24 21:34 40 MG Acetaminophen 650 mg Q6HP PRN PO 01/24/24 18:15 02/04/24 00:43 650 MG Docusate Sodium 100 mg DAILY PO 01/25/24 10:00 01/29/24 09:37 100 MG Ondansetron HCl 4 mg Q4HP PRN IV 01/24/24 18:15 Nitroglycerin 0.4 mg Q5MINP PRN SL 01/24/24 18:15 Albuterol 2.5 mg Q4HR NEB 01/24/24 22:00 02/04/24 01:53 2.5 MG Ceftriaxone Sodium 50 ml @ 100 mls/hr DAILY@09 IV 01/25/24 09:00 02/03/24 10:16 100 MLS/HR Diagnostic Test (Pha) 1 strip ACHS 01/27/24 17:00 02/03/24 21:40 1 STRIP Melatonin 5 mg HS PRN PO 01/27/24 22:00 02/01/24 23:26 5 MG Insulin Human Regular ACHS SC 01/27/24 22:00 02/03/24 16:50 2 UNITS Apixaban 10 mg BID PO 02/01/24 22:00 02/08/24 21:59 02/03/24 21:39 10 MG Apixaban 5 mg BID PO 02/08/24 22:00 Azithromycin 500 mg DAILY PO 02/02/24 10:00 02/03/24 10:16 500 MG Laboratory Results Laboratory Tests 02/03/24 04:39 Chemistry Test 02/03/24 04:39 Calcium Level 9.5 mg/dL (8.7-10.4) Urinalysis Test 01/30/24 10:00 Urine Color Yellow (Yellow) Urine Clarity Clear (Clear) Urine pH 7.0 (5.0-9.0) Urine Specific [place] 1.028 (1.001-1.035) Urine Protein 2+ (Negative) H Urine Ketones Negative (Negative) Urine Blood 3+ /uL (Negative) H Urine Nitrite Negative (Negative) Urine Bilirubin Negative (Negative) Urine Urobilinogen Normal mg/dL (Negative) Urine Leukocyte Esterase Trace /uL (Negative) Urine RBC 997 /hpf (0 - 4) Urine WBC 14 /hpf (0 - 5) Urine Squamous Epithelial Cells Few /hpf (<5) Urine Bacteria None seen /hpf (None Seen) Urine Glucose Normal mg/dL (Normal) Microbiology Microbiology Date/Time Source Procedure Growth Status 01/28/24 00:00 Nose MRSA Screen - Final Complete Labs and/or images reviewed: Labs reviewed by me, Image(s) reviewed by me Assessment/Plan Assessment/Plan A 64-year-old female patient; with multiple comorbidities; who presented to emergency department with SOB and chest tightness. #Acute hypoxic respiratory failure due to bilateral pulmonary emboli; reviewed available imaging studies and ABGs; continue oxygen therapy as needed; now on 2 - 4 liters/minutes via nasal cannula; was on BiPAP, Oxymizer, and high-flow nasal cannula; continue monitoring #Submassive bilateral pulmonary emboli with RV strain in the setting of history of pulmonary embolism 2008; causing SOB and chest tightness; stopped Xarelto in November 2023; was on heparin infusion; status post thrombectomy (clot retrieval of the right distal pulmonary artery as well as the right interlobar distal artery) on January 31, 2024 by cardiology; cardiology is following; continue apixaban; reviewed chest angiogram and echocardiogram; no DVTs; continue monitoring #Chest tightness with NSTEMI type 2; demand ischemia; the setting of RV strain secondary to submassive bilateral pulmonary emboli; telemetry; continue aspirin and statin; cardiology is following; continue monitoring #Essential hypertension; continue antihypertensive medications as indicated; continue monitoring #Hyperglycemia; prediabetic; continue insulin sliding scale and hypoglycemia protocol; continue monitoring #Asthma exacerbation; was IV steroids; continue IV antibiotics; continue oxygen therapy as above; continue monitoring #Metabolic syndrome with prediabetes and dyslipidemia along with morbid obesity; counseled the patient on the importance of adopting healthy lifestyle with diet and exercise in order to lose weight; continue monitoring #Morbid obesity; details and management as above; continue monitoring #Dyslipidemia; continue statin; reviewed lipid profile; continue monitoring #Prediabetes; newly diagnosed; hemoglobin A1c of 6.1%; management as above; continue monitoring #CURRY; most likely vasomotor nephropathy in the setting of submassive bilateral pulmonary emboli and RV strain; avoid nephrotoxic agents; continue monitoring #Macrocytosis without anemia; to investigate as outpatient; continue monitoring #Low TSH; free T4 WNL; continue monitoring #Pulmonary hypertension; to follow up as outpatient; continue monitoring #Physical deconditioning due to critical illness; continue physical therapy as inpatient; continue monitoring #Discharge planning; 6 minute walk test was performed showing that the patient's saturation continues to decrease while walking even on oxygen therapy; placed new order for neonatal social worker for home oxygen therapy; continue monitoring Late Entry. This medical document was created using an electronic medical record system with computerized dictation system. Although this document has been carefully reviewed, there might still be some phonetic and typographical errors. These areas are purely typographical due to imperfections of the software programs, and do not reflect any compromise in the patient's medical care. Plan discussed with: Patient, Other (Nurse) My Orders Orders - VINOD WALTER MD Procedure Category Date Status Time Basic Metabolic Panel LAB 02/04/24 Logged 04:00 Complete Blood Count LAB 02/04/24 Logged 04:00 Communication Order ORDERS 02/04/24 Transmitted 02:54 * Radiologic Technology Program Director CONS 02/04/24 Transmitted Consult Communication Order ORDERS 02/04/24 Transmitted 09:00 Basic Metabolic Panel LAB 02/05/24 Verified 04:00 Complete Blood Count LAB 02/05/24 Verified 04:00 Date of Service: Feb 04, 2024 Billing Provider: VINOD WALTER MD Common Visit Codes: [id number] INP/OBS CARE(HIGH) VINOD WALTER MD Feb 04, 2024 03:10
[2024-02-04 06:51] LABS: Basophils # (auto) 0.1 10 ^3/uL (0-0.2); Eosinophils # (auto) 0.2 10 ^3/uL (0-0.8); Hemoglobin 13.1 g/dL (12.2-16.2); Monocytes # (auto) 1.1 10 ^3/uL (0-1.3); Red Cell Distribution Width 14.8 % (11.8-14.3)
[2024-02-04 06:55] LABS: Eosinophils % (auto) 2.9 % (0.0-7.0); Hematocrit 38.1 % (36.0-46.0); Lymphocytes # (auto) 1.6 10 ^3/uL (0.4-5.4); Lymphocytes % (auto) 20.2 % (10.0-50.0); Mean Corpuscular Hemoglobin 34.6 pg (28.0-32.0); Mean Corpuscular Hgb Conc. 34.4 g/dL (32.0-36.0); Mean Corpuscular Volume 100.8 fL (80.0-100.0); Monocytes % (auto) 13.8 % (0.0-12.0); Neutrophils % (auto) 62.1 % (37.0-80.0); Platelet Count (auto) 225 10^3/uL (140-450); Red Blood Cells 3.78 10^6/uL (4.0-5.20); White Blood Cell 8.1 10^3/uL (4.4-10.8)
[2024-02-04 07:01] LABS: Chloride 107 mmol/L (98-107); Sodium 141 mmol/L (136-145)
[2024-02-04 07:02] LABS: Anion Gap 8 (5-15); Calcium 9.7 mg/dL (8.7-10.4); Carbon Dioxide 26 mmol/L (20-31)
[2024-02-04 07:07] LABS: BUN/Creatinine Ratio 15.6 (10.0-20.0); Blood Urea Nitrogen 12 mg/dL (9-23); Glucose 95 mg/dL (74-106)
[2024-02-05] VITALS (21 sets, daily range): BP systolic 91–134; BP diastolic 18–80; PULSE 74–98; RESP 16–22; TEMP 97.4–98.3; O2SAT 91–99
[2024-02-05 06:04] LABS: Anion Gap 7 (5-15); Carbon Dioxide 27 mmol/L (20-31); Chloride 107 mmol/L (98-107); Potassium 4.3 mmol/L (3.5-5.1); Sodium 141 mmol/L (136-145)
[2024-02-05 06:06] LABS: Calcium 9.8 mg/dL (8.7-10.4)
[2024-02-05 06:08] LABS: Basophils # (auto) 0.1 10 ^3/uL (0-0.2); Eosinophils # (auto) 0.3 10 ^3/uL (0-0.8); Eosinophils % (auto) 3.1 % (0.0-7.0); Lymphocytes # (auto) 1.6 10 ^3/uL (0.4-5.4); Neutrophils # (auto) 5.2 10 ^3/uL (1.6-8.6)
[2024-02-05 06:10] LABS: BUN/Creatinine Ratio 16.3 (10.0-20.0); Blood Urea Nitrogen 14 mg/dL (9-23); Glucose 98 mg/dL (74-106)
[2024-02-05 06:12] LABS: Basophils % (auto) 1.3 % (0.0-2.0); Hemoglobin 13.1 g/dL (12.2-16.2); Lymphocytes % (auto) 18.9 % (10.0-50.0); Mean Corpuscular Hemoglobin 34.7 pg (28.0-32.0); Mean Corpuscular Hgb Conc. 34.4 g/dL (32.0-36.0); Mean Corpuscular Volume 100.9 fL (80.0-100.0); Monocytes # (auto) 1.2 10 ^3/uL (0-1.3); Monocytes % (auto) 14.2 % (0.0-12.0); Neutrophils % (auto) 62.5 % (37.0-80.0); Platelet Count (auto) 228 10^3/uL (140-450); Red Blood Cells 3.77 10^6/uL (4.0-5.20); White Blood Cell 8.3 10^3/uL (4.4-10.8)
--- NOTE | 2024-02-05 09:43 | DVHPN2 ---
Subjective Almost no SOB and no chest tightness while at rest; developed SOB and palpitations during 6 minute walk test with PT associated with oxygen saturation decreasing in 80s while on 4 to 5 L/min of oxygen therapy Reviewed: Care Plan, H&P, Labs, Medications, Previous Orders, Radiology, Other (Consultation) Changes from previous H/P or p: Changes Objective Vitals Vital Signs Date Time Temp Pulse Resp B/P (MAP) Pulse Ox O2 Delivery O2 Flow Rate FiO2 02/05/24 07:23 82 18 99 02/05/24 07:17 Nasal Cannula* 4 36 02/05/24 05:00 97.7 115/76 (89) 97.7 Intake/Output Intake and Output 02/05/24 07:00 Intake Total 1250 ml Output Total 400 ml Balance 850 ml Intake Oral 1200 ml IV Total 50 ml Output Urine Total 400 ml # Voids 2 General Appearance: Alert, Oriented X3, Cooperative, No acute distress (While at rest; mild distress while walking) HEENT: Atraumatic Lungs: Clear to auscultation, Normal air movement Cardiovascular: Regular rate, Normal S1, Normal S2 Abdomen: Normal bowel sounds, Soft, No tenderness Neuro: Normal speech, Cranial nerves 3-12 NL Psych/Mental Status: Mental status NL, Mood NL Medications Current Medications Medications Dose Ordered Sig/Kat Route Start Time Stop Time Status Last Admin Dose Admin Dextrose 50 ml UD PRN IV 01/24/24 18:15 Aspirin 81 mg DAILY PO 01/25/24 10:00 02/05/24 08:36 81 MG Atorvastatin Calcium 40 mg HS PO 01/24/24 22:00 02/04/24 22:46 40 MG Acetaminophen 650 mg Q6HP PRN PO 01/24/24 18:15 02/04/24 17:47 650 MG Docusate Sodium 100 mg DAILY PO 01/25/24 10:00 02/05/24 08:35 100 MG Ondansetron HCl 4 mg Q4HP PRN IV 01/24/24 18:15 Nitroglycerin 0.4 mg Q5MINP PRN SL 01/24/24 18:15 Albuterol 2.5 mg Q4HR NEB 01/24/24 22:00 02/05/24 07:17 2.5 MG Ceftriaxone Sodium 50 ml @ 100 mls/hr DAILY@09 IV 01/25/24 09:00 02/05/24 08:36 100 MLS/HR Melatonin 5 mg HS PRN PO 01/27/24 22:00 02/04/24 22:46 5 MG Apixaban 10 mg BID PO 02/01/24 22:00 02/08/24 21:59 02/05/24 08:35 10 MG Apixaban 5 mg BID PO 02/08/24 22:00 Azithromycin 500 mg DAILY PO 02/02/24 10:00 02/05/24 08:35 500 MG Laboratory Results Laboratory Tests 02/05/24 05:33 Chemistry Test 02/05/24 05:33 Calcium Level 9.8 mg/dL (8.7-10.4) Urinalysis Test 01/30/24 10:00 Urine Color Yellow (Yellow) Urine Clarity Clear (Clear) Urine pH 7.0 (5.0-9.0) Urine Specific [place] 1.028 (1.001-1.035) Urine Protein 2+ (Negative) H Urine Ketones Negative (Negative) Urine Blood 3+ /uL (Negative) H Urine Nitrite Negative (Negative) Urine Bilirubin Negative (Negative) Urine Urobilinogen Normal mg/dL (Negative) Urine Leukocyte Esterase Trace /uL (Negative) Urine RBC 997 /hpf (0 - 4) Urine WBC 14 /hpf (0 - 5) Urine Squamous Epithelial Cells Few /hpf (<5) Urine Bacteria None seen /hpf (None Seen) Urine Glucose Normal mg/dL (Normal) Microbiology Microbiology Date/Time Source Procedure Growth Status 01/28/24 00:00 Nose MRSA Screen - Final Complete Labs and/or images reviewed: Labs reviewed by me, Image(s) reviewed by me Assessment/Plan Assessment/Plan A 64-year-old female patient; with multiple comorbidities; who presented to emergency department with SOB and chest tightness. #Acute hypoxic respiratory failure due to bilateral pulmonary emboli; reviewed available imaging studies and ABGs; continue oxygen therapy as needed; now on 2 - 4 liters/minutes via nasal cannula at rest; was on BiPAP, Oxymizer, and high- flow nasal cannula; the patient oxygen saturation decreased to 80s while walking while on 4 to 5 L/min via nasal cannula and also was tachycardic and felt palpitations; continue monitoring #Submassive bilateral pulmonary emboli with RV strain in the setting of history of pulmonary embolism 2008; causing SOB and chest tightness; stopped Xarelto in November 2023; was on heparin infusion; status post thrombectomy (clot retrieval of the right distal pulmonary artery as well as the right interlobar distal artery) on January 31, 2024 by cardiology; cardiology is following; continue apixaban; reviewed chest angiogram and echocardiogram; no DVTs; continue monitoring #Chest tightness with NSTEMI type 2; demand ischemia; the setting of RV strain secondary to submassive bilateral pulmonary emboli; telemetry; continue aspirin and statin; cardiology is following; continue monitoring #Essential hypertension; continue antihypertensive medications as indicated; continue monitoring #Hyperglycemia; prediabetic; continue insulin sliding scale and hypoglycemia protocol; continue monitoring #Asthma exacerbation; was on IV steroids; continue IV antibiotics; continue oxygen therapy as above; continue monitoring #Metabolic syndrome with prediabetes and dyslipidemia along with morbid obesity; counseled the patient on the importance of adopting healthy lifestyle with diet and exercise in order to lose weight; continue monitoring #Morbid obesity; details and management as above; continue monitoring #Dyslipidemia; continue statin; reviewed lipid profile; continue monitoring #Prediabetes; newly diagnosed; hemoglobin A1c of 6.1%; management as above; continue monitoring #CURRY; most likely vasomotor nephropathy in the setting of submassive bilateral pulmonary emboli and RV strain; avoid nephrotoxic agents; continue monitoring #Macrocytosis without anemia; to investigate as outpatient; continue monitoring #Low TSH; free T4 WNL; continue monitoring #Pulmonary hypertension; to follow up as outpatient; continue monitoring #Physical deconditioning due to critical illness; continue physical therapy as inpatient; continue monitoring #Discharge planning; continues to have tachycardia/palpitations upon walking with decreased oxygen saturation; ABGs ordered annual reviewed for home oxygen therapy; social media marketing manager team is following; order the new chest x-ray; continue monitoring Unclear if the patient needs re-evaluation by Cardiology for any endovascular intervention; could continue monitoring until the patient finished initial treatment with apixaban 10 mg twice a day before making re-evaluation for oxygen needs during exercise/exertion. Late Entry. This medical document was created using an electronic medical record system with computerized dictation system. Although this document has been carefully reviewed, there might still be some phonetic and typographical errors. These areas are purely typographical due to imperfections of the software programs, and do not reflect any compromise in the patient's medical care. Plan discussed with: Patient, Other (Nurse) My Orders Orders - VINOD WALTER MD Procedure Category Date Status Time * Fender Mechanic CONS 02/04/24 Transmitted Consult Date of Service: Feb 05, 2024 Billing Provider: VINOD WALTER MD Common Visit Codes: [id number] INP/OBS CARE(HIGH) VINOD WALTER MD Feb 05, 2024 09:43
[2024-02-05 10:53] LABS: Base Excess -0.7 mmol/L (-2.0-3.0)
--- NOTE | 2024-02-05 16:13 | MEDREC ---
[facility] Intervention Section I [facility] Intervention: Review courses of therapy (DAY 12 ON AZITHROMYCIN - PLEASE CONSIDER D/C ANTIBIOTIC COURSE OF THERPAY COMPLETE) CANDICE CONTEH PHARMACIST Feb 05, 2024 16:13
[2024-02-06] VITALS (22 sets, daily range): BP systolic 116–145; BP diastolic 64–76; PULSE 62–97; RESP 16–20; TEMP 97.8–98.3; O2SAT 87–99
--- NOTE | 2024-02-06 06:55 | DVH ---
CHEST RADIOGRAPH Indication: follow up for respiratory failure Technique: Single AP portable chest radiograph was obtained. Comparison: XY CHEST XRAY 1 VIEW on DOS: 01/30/24, XY CHEST PORTABLE on DOS: 01/29/24, XY CHEST PORTABL E on DOS: 01/28/24, XY CHEST PORTABLE on DOS: 01/26/24, XY CHEST PORTABLE on DOS: 01/24/24, XY CHEST XRAY 1 VIEW on DOS: 01/30/24 FINDINGS: cardiomegaly and prominence of the pulmonary vasculature, similar to the prior exam. No focal consol idation. No other significant interval change. IMPRESSION: 1. Cardiomegaly and prominence of the pulmonary vasculature May suggest a degree of pulmonary vascula r congestion in the appropriate clinical setting. 2. No focal consolidation.
[2024-02-06 06:59] LABS: Alanine Aminotransferase 25 U/L (7-40); Albumin 3.5 g/dL (3.2-4.8); Alkaline Phosphatase 53 U/L (46-116); Anion Gap 6 (5-15); BUN/Creatinine Ratio 14.4 (10.0-20.0); Blood Urea Nitrogen 13 mg/dL (9-23); Calcium 9.8 mg/dL (8.7-10.4); Carbon Dioxide 27 mmol/L (20-31); Glucose 96 mg/dL (74-106); Potassium 4.4 mmol/L (3.5-5.1); Sodium 142 mmol/L (136-145)
[2024-02-06 07:00] LABS: Aspartate Aminotransferase 18 U/L (13-40); Bilirubin, Total 0.6 mg/dL (0.2-1.0)
[2024-02-06 07:01] LABS: Chloride 109 mmol/L (98-107); Total Protein 5.6 g/dL (5.7-8.2)
[2024-02-06 07:03] LABS: Basophils # (auto) 0.1 10 ^3/uL (0-0.2); Eosinophils # (auto) 0.2 10 ^3/uL (0-0.8); Eosinophils % (auto) 2.7 % (0.0-7.0); Lymphocytes # (auto) 1.4 10 ^3/uL (0.4-5.4)
[2024-02-06 07:06] LABS: Basophils % (auto) 1.1 % (0.0-2.0); Hematocrit 37.3 % (36.0-46.0); Hemoglobin 12.6 g/dL (12.2-16.2); Lymphocytes % (auto) 16.1 % (10.0-50.0); Mean Corpuscular Hemoglobin 34.3 pg (28.0-32.0); Mean Corpuscular Hgb Conc. 33.7 g/dL (32.0-36.0); Mean Corpuscular Volume 101.8 fL (80.0-100.0); Neutrophils # (auto) 5.9 10 ^3/uL (1.6-8.6); Neutrophils % (auto) 68.1 % (37.0-80.0); Platelet Count (auto) 224 10^3/uL (140-450); Red Blood Cells 3.66 10^6/uL (4.0-5.20); Red Cell Distribution Width 14.9 % (11.8-14.3); White Blood Cell 8.6 10^3/uL (4.4-10.8)
[2024-02-06] MEDS: FUROSEMIDE 20 MG/2 ML VIAL IV ONE (10:15)
[2024-02-06] MEDS: POTASSIUM CHL 20 Meq TABLET PO ONE (10:15)
--- NOTE | 2024-02-06 10:19 | DVHPN2 ---
Progress Note Date Seen: Feb 06, 2024 Medical Necessity Reason Pt with a Central, PICC or Fol: No Subjective Patient reports: No new complaints Review of Systems: HEENT:Normal, CVS:Normal, RESPIRATORY:Normal, GI:Normal, :Normal, MSK:Normal, NEURO:Normal Objective vital signs Vital Sign Date Time Temp Pulse Resp B/P (MAP) Pulse Ox O2 Delivery O2 Flow Rate FiO2 02/06/24 10:04 84 18 98 02/06/24 09:00 98.2 116/64 (81) 98.2 02/06/24 07:45 Nasal Cannula* 4 N/A Oxymizer Total Intake and Output 02/05/24 02/05/24 02/06/24 15:00 23:00 07:00 Intake Total 900 ml 240 ml Output Total 1 ml Balance 899 ml 240 ml medications Current Medications Medications Dose Ordered Sig/Kat Route Start Time Stop Time Status Last Admin Dose Admin Dextrose 50 ml UD PRN IV 01/24/24 18:15 Aspirin 81 mg DAILY PO 01/25/24 10:00 02/06/24 09:54 81 MG Atorvastatin Calcium 40 mg HS PO 01/24/24 22:00 02/05/24 21:49 40 MG Acetaminophen 650 mg Q6HP PRN PO 01/24/24 18:15 02/04/24 17:47 650 MG Docusate Sodium 100 mg DAILY PO 01/25/24 10:00 02/06/24 09:54 100 MG Ondansetron HCl 4 mg Q4HP PRN IV 01/24/24 18:15 Nitroglycerin 0.4 mg Q5MINP PRN SL 01/24/24 18:15 Albuterol 2.5 mg Q4HR NEB 01/24/24 22:00 02/06/24 09:54 2.5 MG Melatonin 5 mg HS PRN PO 01/27/24 22:00 02/05/24 21:49 5 MG Apixaban 10 mg BID PO 02/01/24 22:00 02/08/24 21:59 02/06/24 09:54 10 MG Apixaban 5 mg BID PO 02/08/24 22:00 Azithromycin 500 mg DAILY PO 02/02/24 10:00 02/06/24 09:54 500 MG Examination: GENERAL:Normal, HEENT:Normal, NECK:Normal, LUNGS:Normal, LUNGS:Abnormal (on oxygen), CVS:Normal, ABDOMEN:Normal, MSK:Normal, SKIN:Normal, NEURO:Normal, :Normal laboratory and microbiology Laboratory Tests 02/06/24 05:56 Test 02/06/24 05:56 Range/Units Serum Glucose 96 74-106 mg/dL Microbiology Date/Time Source Procedure Growth Status 01/28/24 00:00 Nose MRSA Screen - Final Complete Problem List/Assessment/Plan Problem List/Assessment/Plan #1 acute resp failure: on oxymizer #2 acute PE: on heparin drip, s/p thrombectomy , start eliquis #3 asthma #4 htn #5 obesity #6 nstemi ?type 2 #7 acute diastolic heart failure likely due to pe/rv strain #8 ?pneumonia: on antibiotics #9 acute renal failure ?vasomotor nephropathy advance care planning- full code- time spent 19mins Plan discussed with: Patient Dietary Evaluation Review Comments: Continue current plan of care Expected Outcomes/Goals: F/U in 3-5 days Date of Service: Feb 06, 2024 Billing Provider: WU BECK MD Common Visit Codes: [id number] INP/OBS CARE(HIGH) WU BECK MD Feb 06, 2024 10:19
[2024-02-07] VITALS (13 sets, daily range): BP systolic 110–125; BP diastolic 66–78; PULSE 69–91; RESP 16–20; TEMP 97.6–98.5; O2SAT 90–100
--- NOTE | 2024-02-07 10:24 | DVHDS2 ---
Discharge Summary Date of Admission Jan 24, 2024 at 18:11 Date of Discharge: Feb 07, 2024 Labs/Diagnostic Data: Laboratory Results Test 02/06/24 05:56 02/05/24 10:40 02/04/24 12:47 02/01/24 04:49 White Blood Count 8.6 10^3/uL (4.4-10.8) Red Blood Count 3.66 10^6/uL (4.0-5.20) Hemoglobin 12.6 g/dL (12.2-16.2) Hematocrit 37.3 % (36.0-46.0) Mean Corpuscular Volume 101.8 fL (80.0-100.0) Mean Corpuscular Hemoglobin 34.3 pg (28.0-32.0) Mean Corpuscular Hemoglobin Concent 33.7 g/dL (32.0-36.0) Red Cell Distribution Width 14.9 % (11.8-14.3) Platelet Count 224 10^3/uL (140-450) Mean Platelet Volume 9.3 fL (6.9-10.8) Neutrophils (%) (Auto) 68.1 % (37.0-80.0) Lymphocytes (%) (Auto) 16.1 % (10.0-50.0) Monocytes (%) (Auto) 12.0 % (0.0-12.0) Eosinophils (%) (Auto) 2.7 % (0.0-7.0) Basophils (%) (Auto) 1.1 % (0.0-2.0) Neutrophils # (Auto) 5.9 10 ^3/uL (1.6-8.6) Lymphocytes # (Auto) 1.4 10 ^3/uL (0.4-5.4) Monocytes # (Auto) 1.0 10 ^3/uL (0-1.3) Eosinophils # (Auto) 0.2 10 ^3/uL (0-0.8) Basophils # (Auto) 0.1 10 ^3/uL (0-0.2) Nucleated Red Blood Cells 0.0 % Sodium Level 142 mmol/L (136-145) Potassium Level 4.4 mmol/L (3.5-5.1) Chloride Level 109 mmol/L (98-107) Carbon Dioxide Level 27 mmol/L (20-31) Anion Gap 6 (5-15) Blood Urea Nitrogen 13 mg/dL (9-23) Creatinine 0.90 mg/dL (0.550-1.02) Glomerular Filtration Rate Calc 71 mL/min (>90) BUN/Creatinine Ratio 14.4 (10.0-20.0) Serum Glucose 96 mg/dL (74-106) Calcium Level 9.8 mg/dL (8.7-10.4) Total Bilirubin 0.6 mg/dL (0.2-1.0) Aspartate Amino Transferase (AST) 18 U/L (13-40) Alanine Aminotransferase (ALT) 25 U/L (7-40) Alkaline Phosphatase 53 U/L (46-116) Total Protein 5.6 g/dL (5.7-8.2) Albumin 3.5 g/dL (3.2-4.8) Blood Gas Specimen Type Arterial Blood Gas Sample Site Right radial Blood Gas Patient Temperature 37.0 Arterial Blood Date Drawn [id number] Arterial Blood pH 7.449 (7.350-7.450) Arterial Blood Partial Pressure CO2 33.2 mmHg (32.0-45.0) Arterial Blood Partial Pressure O2 44.2 mmHg (83.0-108.0) Arterial Blood HCO3 22.5 mmol/L (21.0-28.0) Arterial Blood Oxygen Saturation 79.0 % (94.0-98.0) Arterial Blood Base Excess -0.7 mmol/L (-2.0-3.0) Arterial Blood Oxyhemoglobin 78.1 % (94.0-98.0) Arterial Blood Carboxyhemoglobin 0.9 % (0.5-1.5) Arterial Blood Methemoglobin 0.2 % (0.0-1.5) Ashish Test Yes Blood Gas Total Hemoglobin 14.40 g/dL (12.0-16.0) Blood Gas Modality Room air FiO2 % 21.0 Blood Gas Critical Value Read Back Yes Blood Gas Notified Whom nydia Schulz md Blood Gas Notified Time [id number] Blood Gas Notified By Maria Fernanda overton varnish inspector POC Glucose 101 mg/dl (70-106) Prothrombin Time 11.1 sec (9.3-11.8) Prothrombin Time INR 1.05 (0.9-1.15) Activated Partial Thromboplast Time 77.7 SEC (24.5-34.5) Test 01/31/24 11:50 01/30/24 10:00 01/30/24 08:30 01/30/24 05:21 Activated Clotting Time 216 SEC. (93-166) Urine Color Yellow (Yellow) Urine Clarity Clear (Clear) Urine pH 7.0 (5.0-9.0) Urine Specific [place] 1.028 (1.001-1.035) Urine Protein 2+ (Negative) Urine Ketones Negative (Negative) Urine Blood 3+ /uL (Negative) Urine Nitrite Negative (Negative) Urine Bilirubin Negative (Negative) Urine Urobilinogen Normal mg/dL (Negative) Urine Leukocyte Esterase Trace /uL (Negative) Urine RBC 997 /hpf (0 - 4) Urine WBC 14 /hpf (0 - 5) Urine Squamous Epithelial Cells Few /hpf (<5) Urine Bacteria None seen /hpf (None Seen) Urine Glucose Normal mg/dL (Normal) Blood Gas Liter Flow 50.00 Magnesium Level 1.8 mg/dL (1.6-2.6) Test 01/26/24 02:44 01/25/24 10:49 01/25/24 10:15 01/25/24 08:55 Free Thyroxine (T4) Calculated 1.06 ng/dL (0.89-1.76) Differential Total Cells Counted 100.0 (100) Neutrophils % (Manual) 78 (37.0-80.0) Band Neutrophils % (Manual) 0 Lymphocytes % (Manual) 14 (10.0-50.0) Monocytes % (Manual) 8 (0-12) Eosinophils % (Manual) 0 (0-7) Basophils % (Manual) 0 (0.0-2.0) Metamyelocytes % (manual) 0 Myelocytes % (Manual) 0 Promyelocytes % (Manual) 0 Blast Cells % (Manual) 0 Reactive Lymphocytes 0 Platelet Estimate Adequate Influenza Type A Antigen Negative (Negative) Influenza Type B Antigen Negative (Negative) SARS-CoV-2 Antigen (Rapid) Negative (NEGATIVE) Troponin I High Sensitivity 533 ng/L (</=34) Test 01/25/24 03:51 01/24/24 16:21 Hemoglobin A1c 6.1 % A1C (<5.7) B-Type Natriuretic Peptide 747.58 pg/mL (0-100) Triglycerides Level 96 mg/dL (< 150) Cholesterol Level 195 mg/dL (< 200) LDL Cholesterol 95 mg/dL (< 100) HDL Cholesterol 80 mg/dL (40-59) Thyroid Stimulating Hormone (TSH) 0.42 uIU/mL (0.55-4.78) Venous Blood pH 7.359 (7.320-7.430) Venous Blood pCO2 at Patient Temp 47.9 mmHg (38.0-54.0) Venous Blood pO2 at Patient Temp 54.8 mmHg (23.0-48.0) Venous Blood HCO3 26.4 mmol/L (22.0-29.0) Venous Blood Base Excess 0.3 mmol/L (-2.0-3.0) Blood Gas Set Respiration Rate 12.0 Blood Gas Pressure Support 7 Blood Gas EPAP 5 Blood Gas IPAP 12 Other Laboratory Tests 02/06/24 05:56 Brief Hx & Hospital Course: see dictated note Condition at Discharge: Fair Final Diagnosis/Problems List pe Discharge Disposition: Home Discharge Instruct/Medications Diet: Cardiac 2g Na,low cholest Activity: No Restrictions, As Tolerated Follow Up/Referral: fu with pcp in 1 wk Medications: resume home meds script to pharmacy Discharge Statement: "Patient was advised to return to the ER or call 911 if any headaches, dizziness, shortness of breath, chest pain, abdominal pain, bleeding, fevers, or worsening of medical condition. Patient was counseled about treatment plan, medications, possible side effects, patientverbalized understanding. All questions were answered to the best of my ability. This discharge took greater then 30 minutes in planning, reviewing documentation, counseling the patient, and discussing with other team members." ASSESSMENT ASSESSMENT Assessment pe Date of Service: Feb 07, 2024 Billing Provider: WU BECK MD Common Visit Codes: 04019-PUX/OBS DISCH DAY >30min WU BECK MD Feb 07, 2024 10:24
[2024-02-07] MEDS ORDERED: APIX5TAB PO (10:25)
--- NOTE | 2024-02-07 10:45 | DVHDS ---
HISTORY OF PRESENT ILLNESS: The patient is a 64-year-old lady who was admitted with history of shortness of breath and low oxygen saturation and was placed on nonrebreather mask. She has history of asthma and hypertension. HOSPITAL COURSE: The patient had a CT angiography that showed evidence of bilateral pulmonary emboli, greater on the right lung. The patient had a head CT that was negative for any intracranial pathology. The patient was placed on anticoagulation. The patient was eventually weaned down on her oxygen. The patient was seen in Cardiology consult by Dr. Shrestha. Echocardiogram done showed ejection fraction of 55%. The patient underwent pulmonary angiogram and an attempt was made to retrieve the clot, which appeared to be more chronic. The patient will now be discharged home. Her ABG on room air prior to discharge showed a pH of 7.4, pCO2 of 33 and a pO2 of 44. The patient will be discharged home to resume her home medications as well as to be on Eliquis 5 mg b.i.d. along with home oxygen at 3-4 liters per minute. She will follow up with her primary in 1 week. FINAL DIAGNOSES: 1. Acute respiratory failure. 2. Acute pulmonary embolism, status post thrombectomy. 3. Asthma. 4. Hypertension. 5. Obesity. 6. Non-STEMI, likely type 2. 7. Acute diastolic heart failure. 8. Questionable pneumonia. 9. Acute renal failure, questionable vasomotor nephropathy. Time spent in discharge planning and review of plan with the patient and nursing was 39 minutes. MD PETER Pena/JAYDEN TID: [id number] RECEIPT: [id number]
[2024-02-08] MEDS ORDERED: APIXABAN 5 MG TAB PO SCH (22:00)
== END 2024-02-07 14:58 | disposition home or self-care (01) | DRG 270 ==
LOC: ER 14:40 → EDBD 14:40 → OVERFLOW 18:11 → DOU IN ICU 01-27 23:41 → TELE-CENTR 02-01 13:08
PROVIDERS: ADMIT Internal Medicine; ATTEND Internal Medicine
PROC: 5A0935A Assistance with Respiratory Ventilation, Less than 24 Consecutive Hours, High Flow/Velocity Cannula (ICD-10-PCS; 2024-01-25)
PROC: 5A0935A Assistance with Respiratory Ventilation, Less than 24 Consecutive Hours, High Flow/Velocity Cannula (ICD-10-PCS; 2024-01-26)
PROC: 5A0935A Assistance with Respiratory Ventilation, Less than 24 Consecutive Hours, High Flow/Velocity Cannula (ICD-10-PCS; 2024-01-27)
PROC: 5A0935A Assistance with Respiratory Ventilation, Less than 24 Consecutive Hours, High Flow/Velocity Cannula (ICD-10-PCS; 2024-01-28)
PROC: 5A0945A Assistance with Respiratory Ventilation, 24-96 Consecutive Hours, High Flow/Velocity Cannula (ICD-10-PCS; 2024-01-28)
PROC: 4A023N6 Measurement of Cardiac Sampling and Pressure, Right Heart, Percutaneous Approach (ICD-10-PCS; principal; 2024-01-31)
PROC: B31TYZZ Fluoroscopy of Left Pulmonary Artery using Other Contrast (ICD-10-PCS; 2024-01-31)
PROC: B31SYZZ Fluoroscopy of Right Pulmonary Artery using Other Contrast (ICD-10-PCS; 2024-01-31)
PROC: 02CQ3ZZ Extirpation of Matter from Right Pulmonary Artery, Percutaneous Approach (ICD-10-PCS; 2024-01-31)
PROC: 5A0935A Assistance with Respiratory Ventilation, Less than 24 Consecutive Hours, High Flow/Velocity Cannula (ICD-10-PCS; 2024-01-31)
PROC: 5A09357 Assistance with Respiratory Ventilation, Less than 24 Consecutive Hours, Continuous Positive Airway Pressure (ICD-10-PCS; 2024-02-03)
PROC: 5A09357 Assistance with Respiratory Ventilation, Less than 24 Consecutive Hours, Continuous Positive Airway Pressure (ICD-10-PCS; 2024-02-04)
DX: I13.0 Hypertensive heart and chronic kidney disease with heart failure and stage 1 through stage 4 chronic kidney disease, or unspecified chronic kidney disease (principal); I21.A1 Myocardial infarction type 2; I26.99 Other pulmonary embolism without acute cor pulmonale; J18.9 Pneumonia, unspecified organism; J96.21 Acute and chronic respiratory failure with hypoxia; I50.31 Acute diastolic (congestive) heart failure; N17.0 Acute kidney failure with tubular necrosis; J45.901 Unspecified asthma with (acute) exacerbation; J44.0 Chronic obstructive pulmonary disease with (acute) lower respiratory infection; J98.11 Atelectasis; N18.9 Chronic kidney disease, unspecified; F32.A Depression, unspecified; Z20.822 Contact with and (suspected) exposure to COVID-19; E88.810 Metabolic syndrome; E78.5 Hyperlipidemia, unspecified; D75.89 Other specified diseases of blood and blood-forming organs; R73.9 Hyperglycemia, unspecified; I07.1 Rheumatic tricuspid insufficiency; E66.01 Morbid (severe) obesity due to excess calories; Z86.711 Personal history of pulmonary embolism; Z79.01 Long term (current) use of anticoagulants; Z87.891 Personal history of nicotine dependence; Z68.35 Body mass index [BMI] 35.0-35.9, adult
CPT/HCPCS: 36415; 36600; 37184; 70450; 71045; 71275; 80048; 80053; 80061; 81001; 82805; 82962; 83036; 83735; 83880; 84439; 84443; 84484; 85007; 85025; 85027; 85610; 85730; 86850; 86900; 86901; 87081; 87426; 87804; 93005; 93306; 93451; 93568; 93970; 94640; 94660; 97110; 97116; 97163; 99152; 99291; G0378; J1815; J2250; Q9967